=== PATIENT | male | born 1955 | race Caucasian/White ===

== ENCOUNTER 2018-07-07 17:33 | Emergency (ER) | payer OTHER ==
[2018-07-07] MEDS: NS 0.9% 1000 ML* 2,000 ML IV ONE ×4 (17:39→21:42)
--- NOTE | 2018-07-07 17:46 | ED ---
Altered Mental Status - HPI Summary HPI Summary: Patient is a 63 y/o M presenting to ED via ambulance at 1732 unresponsive. Provider in room to evaluate patient immediately. Patient was found unresponsive in his bedroom by his brother who is also the medic with the transporting agency. He states that he went to patient's house to check on his furnace as the patient had left him voicemails at 0900 stating his furnace was out of fuel. Pt speech was slightly slurred on the voicemail this am, but states he sometimes "abuses his medications" Upon arrival, patient was found to be on floor, unresponsive. Pt noted to have a black eye - last seen by brother 1 week ago. No blood noted. Brother notes that patient had electric heater turned on when he arrived. EMS reports pt told him he "thinks broke my ribs" during transport. States pt's mental states waxed/waned during transport. EMS gave 4 mg nasal narcan with no relief in Pt's FSBG > 400 by EMS. Sx. PMHx of diabetes,does not insulin, EMS reported patient had 447 BG. Brother/EMS reports that patient is on "twenty medications", has Hx of narcotics usage, denies previous overdose due to narcotics. He states patient does not engage in alc or any other substance usage, notes that patient has his medications delivered to his place of residence. No other hx available. Home medications and allergies are reviewed. Level 5 caveat, patient is minimally responsive. - History Of Current Complaint Stated Complaint: UNRESPONSIVE Time Seen by Provider: 07/07/18 17:37 Hx Obtained From: Family/Safety And Security Officer - brother, EMS Hx From Patient Unobtainable Due To: Altered Mental Status - level 5 caveat, patient is unresponsive Onset/Duration: Still Present Timing: Constant Character: Responsiveness - unresponsive Aggravating Factor(s): Other - possible overdose on narcotics Alleviating Factor(s): Nothing - Allergies/Home Medications Allergies/Adverse Reactions: Allergies Allergy/AdvReac Type Severity Reaction Status Date / Time Adhesive Tape Allergy Rash Verified 06/14/14 00:44 MS Acetaminophen Allergy Abdominal Verified 06/14/14 00:44 [From Tylenol] Pain MS Aspirin [Aspirin] Allergy Bleeding Verified 06/14/14 00:44 MS Atorvastatin Allergy Bleeding Verified 06/18/14 08:51 [From Lipitor] MS Iodine [Iodine] Allergy Rash Verified 06/14/14 00:44 MS Naproxen [From Naprosyn] Allergy Abdominal Verified 06/14/14 00:44 Pain BLEACH Allergy Rash And Uncoded 06/14/14 00:44 Itching PMH/Surg Hx/FS Hx/Imm Hx Previously Healthy: No Endocrine/Hematology History: Reports: Hx Diabetes - metformin Comment Only: Other Endocrine/Hematological Disorders - PANCYTOPENIA Cardiovascular History: Reports: Hx Angina, Hx Coronary Artery Disease, Hx Hypercholesterolemia, Hx Hypertension, Hx Myocardial Infarction - 2009 Denies: Hx Aneurysm, Hx Congenital Heart Disease, Hx Deep Vein Thrombosis, Other Cardiovascular Problems/Disorders Respiratory History: Reports: Hx Pneumonia GI History: Reports: Hx Gastroesophageal Reflux Disease, Other GI Disorders - PANCREATITIS, GERD History: Reports: Hx Benign Prostatic Hyperplasia, Other Problems/ Disorders - some pain when urinating Denies: Hx Renal Disease Musculoskeletal History: Reports: Hx Back Problems Sensory History: Reports: Hx Contacts or Glasses Opthamlomology History: Reports: Hx Contacts or Glasses Neurological History: Reports: Hx Headaches Psychiatric History: Reports: Hx Anxiety, Hx Depression - Surgical History Surgery Procedure, Year, and Place: carciac stents Infectious Disease History: Denies: Hx Clostridium Difficile, Hx Hepatitis, Hx Human Immunodeficiency Virus (HIV) - Family History Known Family History: Positive: Hypertension - Social History Occupation: Unemployed Lives: Alone Alcohol Use: None Substance Use Type: Reports: None, Other - prescription Smoking Status (MU): Former Smoker Type: Cigarettes Have You Smoked in the Last Year: No Review of Systems - ROS Summary Review of Systems Summary: level 5 caveat, unresponsive Negative: Fever - on vitals, temp is 88.2 F core howell Positive: Other - ecchymosis left eye Neurological: Other - unresponsive All Other Systems Reviewed And Are Negative: No - Comments Additional Review of Systems Comments: level 5 caveat, unresponsive Physical Exam - Summary Physical Exam Summary: Vital Signs Reviewed: Yes - profound hypothermia, hypotensive withdrawal to pain, poorly follows commands Eyes: Conjunctiva Clear, pupils 3mm sluggish b/l symmetric, pt with ecchymosis left eye inferior orbit - appears subacute - resolving - no open wounds ENT: TM x 2 clear, mmoist, uvula midline, no exudate, no erythema mmvery dry, lips pasty Neck: Positive: Supple no crepitus Respiratory: Positive: Pt with strong, spontaneous respirations, + BS throughout , ?crepitus right distal ribs Cardiovascular: RRR nl s1, s2 no m/r CBT >2 sec ext very cold abd soft + BS nt/nd no guarding, no distension no bruising Musculoskeletal Exam: Pt noted to move all extremities. Pt withdraws from pain ext x 4 no deformity, no Neurological: Positive: Pt minimially arousable, withdraws and localizes pain, moves ext x 2 1+ patellar b/l, babinski down b/l Psychological: minimally responsive Skin: Positive: no open lesions, apparent subacute ecchymosis left inferior orbit rim, cool to touch, pallor, no mottling Triage Information Reviewed: Yes Vital Signs On Initial Exam: Initial Vitals Temp Pulse Resp BP Pulse Ox 88.2 F 64 24 85/54 100 07/07/18 17:41 07/07/18 17:41 07/07/18 17:41 07/07/18 17:41 07/07/18 17:41 Vital Signs Reviewed: Yes Procedures - Procedure Summary Procedure Summary: Pt intubated for airwary protection and noted profound acidosis on ABG - no family available, implied consent Inline cervical stablization maintained - pt in c collar Pt mouth profoundly dry Pt with large tongue I experienced difficulty visulaizing cords with glidescope Dr. Gallagher came to bedside for assistance with effort visualized cords, advanced ETT - visualized through the cords + BS b.l following sats maintained at 98% bite block placed tube secured in place Pt started on versed drip - Intubation Time of Intubation: 19:02 Intubation Method: nasotracheal Tube Size (cm): 7.5 Medications: Versed Breath Sounds after Intubation: equal Diagnostics - Laboratory Result Diagrams: 07/07/18 20:50 07/07/18 20:50 Lab Statement: Any lab studies that have been ordered have been reviewed, and results considered in the medical decision making process. - CT brain ct CT Interpretation Completed By: Radiologist Summary of CT Findings: IMPRESSION: 1. Left sphenoid sinus air fluid levels and aerosolized secretions may reflect. trauma or acute sinusitis in the appropriate clinical scenario. Clinical. correlation recommended. 2. Expansile groundglass and lytic lesion in the posterior central occipital. bone measuring 4.6 x 1.6 cm is indeterminate. This could reflect either a. benign or malignant lesion. Clinical correlation recommended. Recommend. comparison to prior CT head if available. 3. No definite evidence of acute intracranial hemorrhage, infarction, or mass. This report was reviewed by ED physician. cervical spine ct CT Interpretation Completed By: Radiologist Summary of CT Findings: IMPRESSION: 1. Evaluation moderately limited by patient motion. 2. Multilevel degenerative changes including disc osteophytes. Findings. probably worst at C5-C6 where there is probably moderate canal stenosis. MRI. can be performed if clinically indicated for further evaluation. 3. No acute displaced fracture. THIS REPORT WAS REVIEWED BY ED PHYSICIAN. maxillofacial ct CT Interpretation Completed By: Radiologist Summary of CT Findings: IMPRESSION: No acute displaced fracture. THIS REPORT WAS REVIEWED BY ED PHYSICIAN. CT a/p CT Interpretation Completed By: Radiologist - Patient Name: ELIZABETH TALBOT Medical Record#: [id number] Ordering Physician: Natividad Park MD Acct.#: [id number] : 1955 Age: 63 Sex: M Location: EMERGENCY DEPARTMENT Exam Date: 07/07/181750 ADM Status: REG ER Order Information: CT CHEST/ABD/PEL W/O Accession Number : [id number] CPT: 11079 EXAM: CT Chest Without Contrast EXAM DATE/TIME: 07/07/2018 6:21 PM CLINICAL HISTORY: 63 years old, male; Injury or trauma; Injury history: Unresponsive; Initial encounter; Unconscious; Additional info: Fall, ms changes, TECHNIQUE: Axial computed tomography images of the chest without intravenous contrast. All CT scans at this facility use at least one of these dose optimization techniques: automated exposure control; mA and/or kV adjustment per patient size (includes targeted exams where dose is matched to clinical indication); or iterative reconstruction. Coronal and sagittal reformatted images were created and reviewed. COMPARISON: 06/13/2014 images only without report. FINDINGS: Lungs: Stable 4 mm left lower lobe upper nodule. Pleural space: No focal consolidation or pleural effusion. Heart: Coronary calcifications. Aorta: Calcific atherosclerosis of the thoracic aorta. Lymph nodes: Unremarkable. No enlarged lymph nodes. Bones/joints: Evaluation moderately limited by patient motion. Among other things, extensive motion precludes evaluation for rib fractures. Soft tissues: Unremarkable. Upper abdomen: For abdominal findings, refer to same day CT abdomen. IMPRESSION: 1. Evaluation moderately limited by patient motion. Among other things, extensive motion precludes evaluation for rib fractures. 2. No focal consolidation or pleural effusion. EXAM: CT Abdomen and Pelvis Without Contrast EXAM DATE/TIME: 2017 6:21 PM CLINICAL HISTORY: 63 years old, male; Injury or trauma; Injury history: Unresponsive; Initial encounter; Unconscious; Additional info: Fall, ms changes, TECHNIQUE: Axial computed tomography images of the abdomen and pelvis without contrast. This report is only to be considered final once signed by the Provider(s) as displayed in the "<Electronically Signed by >" field (s). Absence of a signature indicates the report is in a draft status and still needs to be finalized. In the event this document was created by someone other than the signing Provider, the individual initiating the document will be listed in the "Entered by:" or "Dictated by:" donald. 1 of 3 - EKG 1820 Cardiac Rate: NL - rate of 65 BPM EKG Rhythm: Sinus Rhythm Summary of EKG Findings: EKG showed sinus rhythm with rate of 65 BPM, artifact, no ST-T changes. Re-Evaluation - Re-Evaluation First Eval Comment: Pt with no response to Narcan. pt with profound hypotenstion, will give 2 liters saline and boss scan for ? trauma - Pt is not tachycardic, but noted to have beta lizy on med list - continue with broad differential -. accompany pt to CT scan Second Eval Comment: review of scans by me - no intracranial blood, PTX, intra-abominal bleeding or air - no conrast given as pt with chart allergy to contrast. Family not present or available for furthe consult - pt remained hypotensive, 2 additional liter NS irdered, evan hugger, start Levophed. Pt continues with decreased MS - pt with strong res effort, intact gag - continue to monitor - ABG, add carboxyhemoglobin as pt with reported fuel problem per brother. Bg> 444 in ED - await labs Third Eval Comment: pt's lab studies reveal a pround acidosis. sodium, chloride, renal function wnl. markedly elevated AG. non concerning carboxyhbg. apap/ salislyate/tsh/etoh normal. awaiting serum osmolariaty measture - awaiting CT reports. pt noted to have 4mm pupils and non response - unclear is residual from narcan vs progression of process - will intubate. BP 100 systolic with levophed. Pt maintained in C collar and inline stabilization. head CT no acute process report. d/w Dr. Lomax - revieweing differential - DKA, ingestion, hypothermia. will use versed - not paralytic Fourth Eval Comment: Pt intubated - see note. pt started on versed drip. CT c/a/p reviewed - pt with rectosigmoid inflammation - very broad differential given by vrad. reviewed with Dr. Cadena - overnight hospitalist - d/w Dr. Butler - still unclear diagnosis. added additional labs. okay to admit to [facility] Altered Mental Statu Course/Dx - Course Course Of Treatment: Pt presents by EMS found minimally responsive in his house. Last known contact this am - slight slurring of speech. Pt with mininmal responsiveness, borhter states spoke to [facility] to [facility]. Pt noted to be profoundly hypothermic. Pt with subacute ecchymosis left inferior orbit. no other obvious signs of trauma. will give IV narcan, boss labs, FSBG, IVF, second IV, close monitoring, thermofoley, review home meds (no benzo, + narcotic, lyrica, metformin, metoprolol) - Diagnoses Provider Diagnoses: Ketoacidosis, High serum osmolar gap, Ethylene glycol poisoning, Hypothermia, Facial trauma - Provider Notifications Discussed Care Of Patient With: Swathi Lomax Time Discussed With Above Provider: 18:30 Instructed by Provider To: Admit As Inpatient - Patient's case was discussed with Dr. Lomax, Dr. Lomax will assist with patient. - Critical Care Time Critical Care Time: 75-104 min Discharge - Sign-Out/Discharge Documenting (check all that apply): Patient Departure - Discharge Plan Condition: Critical Disposition: ADMITTED TO [facility] Referrals: Fortino Hidalgo MD [Primary Care Provider] - - Billing Disposition and Condition Condition: CRITICAL Disposition: Admitted to [facility] - Attestation Statements Document Initiated by Scribe: Yes Documenting Scribe: CLAUDE HERNANDEZ Provider For Whom Scribe is Documenting (Include Credential): NATIVIDAD PARK MD Scribe Attestation: CLAUDE Brooke , scribed for NATIVIDAD PARK MD on 07/08/18 at 1447. Scribe Documentation Reviewed: Yes Provider Attestation: The documentation as recorded by the scribe, CLAUDE HERNANDEZ accurately reflects the service I personally performed and the decisions made by me, NATIVIDAD PARK MD Status of Gloria Document: Viewed
[2018-07-07 17:56] LABS: Hematocrit 42 % (42-52); Hemoglobin 12.6 g/dl (14.0-18.0); Mean Corpuscular HGB Conc 30 g/dl (31-36); Mean Corpuscular Hemoglobin 26 pg (27-31); Mean Corpuscular Volume 87 fL (80-94); Mean Platelet Volume 7.8 fL (7.4-10.4); Platelet Count 221 10^3/ul (150-450); Red Blood Count 4.85 10^6/ul (4.00-5.40); Red Cell Distribution Width 25 % (10.5-15); White Blood Count 8.6 10^3/ul (3.5-10.8)
[2018-07-07] MEDS ORDERED: Naloxone* 0.4 MG/ML 10 ML VIAL ONE (18:07)
[2018-07-07] MEDS: Norepinephrine VIAL* 4 MG in NS 0.9% 250 ML* 246 ML IV SCH ×4 (18:08→22:35)
[2018-07-07] MEDS ORDERED: Naloxone* 0.4 MG/ML 1 ML VIAL IV PUSH ONE (18:10)
[2018-07-07 18:14] LABS: EGFR Non-African American 63.2 (>60)
[2018-07-07 18:16] LABS: ABS Basophils 0.1 10^3/ul (0-0.2); ABS Eosinophils 0 10^3/ul (0-0.6); ABS Lymphocytes 0.8 10^3/ul (1.0-4.8); ABS Monocytes 0.4 10^3/ul (0-0.8); ABS Neutrophils 7.3 10^3/ul (1.5-7.7); ABS Nucleated RBC 0 10^3/ul; Eosinophil % 0.2 %; Nucleated Red Blood Cells % 0.2
[2018-07-07 18:34] LABS: Urine Appearance Clear; Urine Blood 2+ (Negative); Urine Color Yellow; Urine Ketones 2+ (Negative); Urine Protein 2+(100 mg/dL) (Negative); Urine Red Blood Cell 1+(3-5/hpf) (Absent); Urine Specific Gravity 1.021 (1.010-1.030); Urine Urobilinogen Negative (Negative); Urine White Blood Cell Absent (Absent)
[2018-07-07] MEDS ORDERED: Midazolam* 1 MG/ML 10 ML VIAL (10 MG) ONE (19:03)
[2018-07-07] MEDS ORDERED: Midazolam BAG 1 MG/ML* 100 MG/100 ML BAG IV ONE (19:12)
[2018-07-07] MEDS ORDERED: Midazolam* 1 MG/ML 2 ML VIAL (2 MG) IV SLOW PU ONE ×2 (19:14→19:15)
[2018-07-07] MEDS ORDERED: Insulin IVPB 100 units/100 ml 100 UNITS/100 ML UNIT IVPB ONE (19:52)
[2018-07-07] MEDS ORDERED: Propofol* 100 ML IV SCH (20:00)
[2018-07-07] MEDS ORDERED: Midazolam IV for DRIP* 100 MG in NS 0.9% 100 ML* 80 ML IV SCH (20:00)
[2018-07-07] MEDS ORDERED: NS 0.9% w/ 20 Meq KCL 1000 ML* 1,000 ML IV SCH ×2 (20:00→21:23)
[2018-07-07] MEDS ORDERED: fentaNYL* 50 MCG/ML 2 ML VIAL (100 MCG VIAL) IV SLOW PU PRN (20:16)
[2018-07-07] MEDS ORDERED: Ondansetron INJ* 2 MG/ML VIAL IV PRN (20:24)
[2018-07-07] MEDS ORDERED: Piperacillin/Tazobac ADVAN(*) 3.375 GM in NS 0.9% 100 ML* 100 ML IVPB ONE (20:34)
[2018-07-07] MEDS ORDERED: Pantoprazole* 80 mg IN NS 80 MG/250 ML BAG IVPB ONE (20:36)
--- NOTE | 2018-07-07 20:44 | ED ---
Progress - Progress Note Progress Note: I was asked to place a central line in this patient who is to be admitted to the ICU. I also assisted Dr. Park and intubating the patient. Course/Dx - Course Course Of Treatment: Patient pending admission to ICU or transfer by the hospitalist team. - Diagnoses Provider Diagnoses: Ketoacidosis, High serum osmolar gap, Ethylene glycol poisoning - Provider Notifications Time Discussed With Above Provider: 18:30 Instructed by Provider To: Other - Patient's case was discussed with Dr. Lomax, Dr. Lomax will assist with patient. Discharge - Sign-Out/Discharge Documenting (check all that apply): Patient Departure - Discharge Plan Condition: Critical Disposition: TRANS HIGHER LVL OF CARE FAC - Billing Disposition and Condition Condition: CRITICAL Disposition: Trans Higher Lvl of Care Fac - Attestation Statements Document Initiated by Armenibe: Yes Documenting Scribe: Chico Palacios Provider For Whom Scribe is Documenting (Include Credential): Jay Gallagher MD Scribe Attestation: IChico, scribed for Jay Gallagher MD on 07/07/18 at 2253. Scribe Documentation Reviewed: Yes Provider Attestation: The documentation as recorded by the Chico gonzalez accurately reflects the service I personally performed and the decisions made by me, Jay Gallagher MD Status of Scribe Document: Viewed Procedures - Central Line Right Jugular Central Line Lumen: triple Central Line Procedure: betadine prep, sterile drapes applied, sterile dressing applied Central Line Position: internal jugular (R) Anesthesia: Lidocaine - 1% cc's of anesthesia: 2 Complications: none Central Line Post Position: sutured, good blood return, position confirmed w/ CXR - CXR ordered, admiting team will follow
[2018-07-07] MEDS ORDERED: Pantoprazole IV* 40 MG IV SCH (21:00)
[2018-07-07] MEDS ORDERED: Zosyn per Pharmacy* NOTE FOLLOW UP SCH (21:00)
[2018-07-07] MEDS ORDERED: Chlorhexidine MOUTHWASH 0.12%* 15 ML UDC TOPICAL SCH (21:00)
[2018-07-07] MEDS ORDERED: SODIUM BICARBONATE IV ONE ×2 (21:20→22:18)
[2018-07-07] MEDS ORDERED: D5W IV ONE ×2 (21:20→22:18)
[2018-07-07 21:27] LABS: Hematocrit 42 % (42-52); Hemoglobin 12.6 g/dl (14.0-18.0)
[2018-07-07 21:32] LABS: INR 0.95 (0.77-1.02)
[2018-07-07 21:43] LABS: EGFR Non-African American 77.5 (>60)
[2018-07-07] MEDS ORDERED: Heparin VIAL(*) 5000 UNITS/ML VIAL (FIVE THOUSAND) SUBCUT SCH (22:00)
--- NOTE | 2018-07-07 22:09 | PN ---
Progress Note - Progress Note Date of Service: 07/07/18 Note: 63 yr old with hx of DM found unresponsive with significant anion gap acidosis - promptly intubated. No history obtained other than brother found him unresponsive. Hypothermic and hypotensive. Glucose elevated with component of DKA. Due to the profound AG metaboic acidosis, that persisted despite IVFs and intubation, the concern for ethylene glycol ingestion remains high on the DDx ( elevated osmolal gap) We are unable to acutely dialyze here if he did ingest ethylene glycol. Patient to be transferred to [facility] ICU accepted by Dr. Correa. Patient given a dose of Zosyn prior to transfer. On IVFs NS with 20 KCl, Bicarb drip, Insulin drip, Propofol drip.
[2018-07-07 23:42] VITALS: BP 92/59
[2018-07-08] MEDS ORDERED: ZOSYN 3.375 GM Q8H per EXTENDED INFUSION IVPB SCH ×2 (01:00)
--- NOTE | 2018-07-08 01:05 | HP ---
CC: Fortino Hidalgo MD HISTORY AND PHYSICAL: DATE OF ADMISSION: 07/07/18 TIME OF EVALUATION: 1999 PRIMARY CARE PHYSICIAN: Fortino Hidalgo MD CHIEF COMPLAINT: Altered mental status. HISTORY OF PRESENT ILLNESS: This is a 63-year-old male with a past medical history of diabetes, on oral agents; coronary artery disease; hypertension; who presented to the emergency room unresponsive. The history is obtained from the [facility] and from the ER staff. I have attempted to get in touch with the brother who found him down, but have not been able to reach him and left a message. The ambulance arrived around 173, found the patient unresponsive. The patient was found unresponsive with a black eye in his own home by his brother. The brother went to the patient's house to check on his furnace as the patient left a voice mail at 9 in the morning saying he was out of fuel. The patient was found on the floor unresponsive. The patient had an electric heater turned down when they arrived. They gave him 4 mg of nasal Narcan with no response. His blood sugar from EMS was 447. The brother states he takes 20 medications, history of narcotic use, no history of overdose in the past. He is not always compliant with his medications. On arrival to the emergency room, the patient's GCS score was less than 8 and he was promptly intubated. His blood workup showed a severe anion gap metabolic acidosis. He has a glucose of 531 with a normal lactate. He was started on Levophed. He was given 2 L of fluid, Versed drip, and referred to the hospitalist service for further evaluation. PAST MEDICAL HISTORY: 1. History of chronic pain. 2. History of chronic pancreatitis with history of pseudocyst. 3. Diabetes, on oral agents. 4. Hyperlipidemia. 5. Coronary artery disease. 6. Hypertension. 7. BPH. 8. History of anxiety. MEDICATIONS: Unknown. ALLERGIES: ADHESIVE TAPE, TYLENOL, ASPIRIN, ATORVASTATIN, IODINE, NAPROXEN, and BLEACH. FAMILY HISTORY: Unable to obtain. SOCIAL HISTORY: Appears that the patient lives alone. It is unclear of further details of his social history. His brother in the past was his proxy, Gt Frost, cellphone [phone]. REVIEW OF SYSTEMS: Unable to obtain due to the patient's altered mental status. PHYSICAL EXAMINATION GENERAL: The patient is intubated and sedated. VITAL SIGNS: Temp 88.5, pulse rate 70, respiratory rate is 12, FiO2 is 100% on mechanical ventilation, blood pressure is 113/71. HEENT: Head is normocephalic. He does have ecchymosis inferior of his right orbit. Pupils are minimally reactive and dilated. No corneal reflex. Oropharynx: The patient has ET tube in place. RESPIRATORY: Diminished breath sounds. No wheezes, rhonchi, or rales. CARDIAC: Regular rate and rhythm. Soft systolic murmur heard throughout. ABDOMEN: Positive bowel sounds. Soft, nontender, nondistended. EXTREMITIES: No clubbing, cyanosis, or edema. +1 DPs. NEUROLOGIC: Per staff: The patient prior to intubation was moving his upper extremities and biting on ET tube. Now, he is sedated, not moving any extremities. LABORATORY DATA: White count 8.6, hemoglobin 12.6, hematocrit 42, platelets 221. ABG; pH is less than 7, pCO2 is less than 20, pO2 is 182. Sodium 134, potassium 4.5, chloride 100, bicarb is less than 7, anion gap not reportable, BUN 15, creatinine 1.17, glucose 531, serum osmolality is 323, mag is 2, total bili is 0.3, AST is 19, ALT is 24, alk phos is 130. Troponin is 0. Total protein is 5.9. TSH is 0.67. Urine shows 2+ protein, 2+ ketones, 2+ blood. Toxicology screen is negative. Carbon monoxide screen is negative. RADIOGRAPHIC DATA: Left sphenoid sinus air-fluid levels and aerosolized secretions may reflect trauma or acute sinusitis in the appropriate clinical scenario. Expansile ground glass and lytic lesion in the posterior central occipital bone measuring 4.6 x 1.6 cm is indeterminate. This could reflect either a benign or malignant lesion. No definitive evidence of acute intracranial hemorrhage, infarct, or mass. Cervical spine CT; evaluation moderately limited, multilevel degenerative changes including osteophytes findings probable worse at C5-C6 where there is probable moderate canal stenosis. Chest, abdomen, and pelvis CT; evaluation is moderately limited, rectosigmoid and small bowel wall thickening is nonspecific and could reflect sequelae of trauma, inflammation, underdistention or less likely infection, ischemia, neoplasm, or other etiology. Maxillofacial CT, no acute displaced fracture. ASSESSMENT: This is a 63-year-old male with past medical history of chronic pain, coronary artery disease, hypertension, who presents to the emergency room with altered mental status, was found to have significant anion gap metabolic acidosis. 1. Altered mental status: Assessment: The patient with a GCS score of less than 8, likely due to his profound metabolic acidosis. It is not entirely clear that this is all related to his diabetic ketoacidosis, does have diabetic ketoacidosis which can lead to coma and somnolence that he is presenting; however, the degree of it with his hypothermia, there is concern for other etiologies including ingestional ethylene glycol or methanol. His lactate is normal which would rule out other etiologies such as a seizure. He does have an elevated osmolar gap. Plan: I spoke with Luke at length. I am checking his cyanide level. We will also check a beta hydroxybutyrate, going to check his coags and ammonia level. I will treat him for his diabetic ketoacidosis with IV fluids, potassium , insulin drip, and monitor his glucose every hour. We will repeat a BMP every 4 hours and change his sedation from Versed to propofol. Will also give him a dose of Zosyn in setting of his hypothermia and altered mental status. 2. Coffee ground output from OG tube: About 300 cc. We will start him on a PPI drip. Monitor serial H and Hs and put him on SCDs and hold on chemical anticoagulation prophylaxis. 3. Anion gap metabolic acidosis. As above, managing him for his diabetic ketoacidosis, we will also try other etiologies that may be contributing to his anion gap acidosis at the same time. We will repeat his labs and follow correction and repeat his ABG as well. 4. Chronic medical problems. We will need to get a med rec to determine what he has been compliant with. We will also need to touch base with his brother to get a better history to determine if there are any suspicious activities that occurred at his house. I am waiting to hear a call back from his brother. 5. FEN. N.p.o. with IV fluids. 6. DVT prophylaxis. The patient scores high risk. He is on SCDs in the setting of an upper gastrointestinal bleed. 7. Code status. Full code. ADDENDUM: TRANSFER: Due to the continued concern for ethylene glycol ingestion due to his profound anion gap metabolic acidosis with a normal lactate the decision was made to transfer him to [facility] ICU for possible dialysis. Patient has had central line placed. Patient being transferred with NS with 2 KCl, bicarb drip, insulin drip, propofol drip and protonix drip. Fentanyl prn pain. PATIENT TIME: Greater than 60 minutes spent doing the history and physical. I spoke with Dr. Butler several times regarding the management and hospital course for this patient. [id number] #: [id number] MTDD
== END 2018-07-07 23:42 | disposition short-term general hospital (02) ==
LOC: ED 17:33 → ICU 20:24 → UNDOADMIN 20:24
DX: T65.891A Toxic effect of other specified substances, accidental (unintentional), initial encounter (principal); E87.2 Acidosis; Y92.9 Unspecified place or not applicable; R41.82 Altered mental status, unspecified; Z87.891 Personal history of nicotine dependence; E11.9 Type 2 diabetes mellitus without complications
CPT/HCPCS: 36415; 70450; 70486; 71045; 71250; 72125; 74176; 80048; 80053; 80307; 80320; 80329; 81003; 81015; 82010; 82140; 82375; 82550; 82600; 82803; 82947; 83605; 83735; 83930; 84443; 84484; 85014; 85018; 85025; 85060; 85610; 85730; 86850; 86900; 86901; 87040; 93005; 96360; 99285; G0480; J1815; J2250; J2310; J2543; J2704; J7060

== ENCOUNTER 2018-12-03 10:21 | Inpatient (IN) | payer OTHER ==
[2018-12-03] MEDS ORDERED: Insulin REGULAR(*) 1 UNITS UNIT IV ONE (10:30)
--- NOTE | 2018-12-03 10:31 | ED ---
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 Per brother, who is also the EMS that brought pt into [facility]: Patient called his mother this morning, and she called 911; patient was experiencing slurred speech, tachypnea, tachycardia and his POC blood sugar was too high for a reading en route; he is a diabetic who has not been taking his insulin for the past year; patient will hit himself in the head when frustrated. PMHx: chronic pancreatitis, HDL, back pain, chronic pain. No PMHx of stroke or pancreatic surgery. He was found unresponsive in Jun 2018 and transferred to [facility] at that time from [facility], he spent a month in the hospital at that time. The other brother saw patient last night around 1800. Denies vomiting. Patient is in chronic pain and will state wanting to ; but brother denies patient having SI or MH history. At bedside, patient is cursing, non-cooperative and non-oriented at times. He states, "I'm just a baby," "[place]'m at the river" and "Lord, why do you make me suffer so long. It's time." He states being thirsty. Patient ambulates via walker. Patient lives alone in a trailer. Cooks for himself. He is medication non-compliant. Vitals at bedside: 114 bpm, HR: 104/74, 02 sat: 98%. Home Medications Medication Instructions Recorded Confirmed Type Atorvastatin* [Lipitor*] 80 mg PO BEDTIME 02/09/14 06/14/14 History Docusate CAP* [Colace Cap*] 100 mg PO BID 02/09/14 06/14/14 History Escitalopram Oxalate [Lexapro] 20 mg PO DAILY 02/09/14 06/14/14 History LORazepam TAB(*) [Ativan 0.5 MG 1 tab PO DAILY PRN 02/09/14 06/14/14 History TAB (*)] Linagliptin/Metformin HCl 1 tab PO BID 02/09/14 06/14/14 History [Jentadueto 2.5-1000 mg] Lipase/Protease/Amylase [Creon 0.5 cap PO AC 02/09/14 06/14/14 History 6000 Unit] Metoprolol Tartrate TAB* 100 mg PO BID 02/09/14 06/14/14 History [Lopressor TAB*] Multivitamin [Multivitamins] 1 tab PO DAILY 02/09/14 06/14/14 History Nitroglycerin TAB 0.4 MG* 0.4 mg SL Q5M PRN 02/09/14 06/14/14 History Omeprazole CAP (NF) [Prilosec CAP* 1 tab PO DAILY 02/09/14 06/14/14 History 20 MG] Pregabalin CAP(*) [Lyrica CAP(*)] 75 mg PO TID 02/09/14 06/14/14 History Tamsulosin CAP* [Flomax CAP*] 0.4 mg PO DAILY 02/09/14 06/14/14 History amLODIPine TAB* [Norvasc 5 mg TAB*] 1 tab PO DAILY 02/09/14 06/14/14 History glipiZIDE TAB* [Glucotrol TAB*] 0.5 tab PO BID 02/09/14 06/14/14 History oxyCODONE SR TAB(*) [Oxycontin(*)] 15 mg PO BID 02/09/14 06/14/14 History oxyCODONE TAB* [Roxycodone TAB*] 10 mg PO Q8H PRN 02/09/14 06/14/14 History - History Of Current Complaint Hx Obtained From: Family/Training And Development Project Leader - brother (Herve) and [id number], EMS - brother Herve is also a medic on the ambulance Hx From Patient Unobtainable Due To: Altered Mental Status Onset/Duration: Gradual Onset, Still Present Timing: Constant Severity Initially: Severe Severity Currently: Severe Character: Confused Aggravating: Non-compliant - insulin Alleviating: Nothing Associated Signs & Symptoms: Decreased Level of Conciousness Related History: Hx of DKA - Allergies/Home Medications Allergies/Adverse Reactions: Allergies Allergy/AdvReac Type Severity Reaction Status Date / Time acetaminophen Allergy Abdominal Verified 12/03/18 10:43 Pain Adhesive Tape Allergy Rash Verified 06/14/14 00:44 aspirin Allergy Bleeding Verified 12/03/18 10:43 atorvastatin Allergy Bleeding Verified 12/03/18 10:43 Bleach (Sodium Hypochlorite) Allergy Rash And Verified 12/03/18 10:43 Itching iodine Allergy Rash Verified 12/03/18 10:43 naproxen Allergy Abdominal Verified 12/03/18 10:43 Pain Home Medications: Home Medications Aspirin EC TAB* [Ecotrin EC Low Dose 81 MG*] 81 mg PO DAILY 12/03/18 [History Confirmed 12/03/18] PMH/Surg Hx/FS Hx/Imm Hx Previously Healthy: No Endocrine/Hematology History: Reports: Hx Diabetes - noncompliant with insulin, episodes of DKA, Other Endocrine/Hematological Disorders - PANCYTOPENIA Cardiovascular History: Reports: Hx Angina, Hx Coronary Artery Disease, Hx Hypercholesterolemia, Hx Hypertension, Hx Myocardial Infarction - 2009 Denies: Hx Aneurysm, Hx Congenital Heart Disease, Hx Deep Vein Thrombosis, Other Cardiovascular Problems/Disorders Respiratory History: Reports: Hx Pneumonia GI History: Reports: Hx Gastroesophageal Reflux Disease, Other GI Disorders - PANCREATITIS, GERD History: Reports: Hx Benign Prostatic Hyperplasia, Other Problems/ Disorders - some pain when urinating Denies: Hx Renal Disease Musculoskeletal History: Reports: Hx Back Problems - chronic pain Sensory History: Reports: Hx Contacts or Glasses Opthamlomology History: Reports: Hx Contacts or Glasses Neurological History: Reports: Hx Headaches Psychiatric History: Reports: Hx Anxiety, Hx Depression - Surgical History Surgery Procedure, Year, and Place: cardiac stents Infectious Disease History: No Infectious Disease History: Denies: Hx Clostridium Difficile, Hx Hepatitis, Hx Human Immunodeficiency Virus (HIV) - Family History Known Family History: Positive: Hypertension Negative: Blood Disorder Family History: mother: aortic valve replacement - Social History Occupation: Disabled Lives: Alone Alcohol Use: None - No longer - not in 20 years, per brother Hx Substance Use: No Substance Use Type: Reports: None, Other - prescription Hx Tobacco Use: Yes Smoking Status (MU): Former Smoker Type: Cigarettes Have You Smoked in the Last Year: No Review of Systems Positive: Other - pos: tachycardia Respiratory: Other - pos: tachypnea Positive: Other - pos: elevated blood sugar, thirsty. Negative: Vomiting Positive: no symptoms reported Positive: Arthralgia - chronic back pain Skin: Negative Neurological: Other - pos: AMS Positive: Slurred Speech Psychological: Other - pos: AMS, neg: SI. All Other Systems Reviewed And Are Negative: Yes Physical Exam - Summary Physical Exam Summary: Appearance: Ill-appearing, moderate pain distress, well-nourished. He is wearing an adult diaper. Patient is speaking jibberish and hitting himself in the head. Skin: Warm, color reflects adequate perfusion, dry, abrasion above L eyebrow and nose, 3cm superficial and small hematoma above L eyebrow, superficial abrasions on bilat hands. Head: Normal Head/Face inspection, atraumatic Eyes: Conjunctiva clear ENT: Normal inspection. Fruity breath smells. Neck: Supple, no nodes, no JVD Respiratory: Lungs clear, normal breath sounds, no respiratory distress Cardio: tachycardic, No murmur, pulses normal, brisk capillary refill Abdomen: Soft, nontender Bowel sounds: Present Musculoskeletal: Strength Intact/ROM intact, no calf tenderness, no edema. Psychological: Normal Neuro: Alert, muscle wasting bilateral extremities, no focal deficit. GCS: 14. Triage Information Reviewed: Yes Vital Signs Reviewed: Yes - Jason Coma Scale Best Eye Response: 4 - Spontaneous Best Motor Response: 6 - Obeys Commands Best Verbal Response: 4 - Confused Coma Scale Total: 14 Diagnostics - Vital Signs noted in ED - Laboratory Result Diagrams: 12/11/18 07:45 12/11/18 07:45 Lab Statement: Any lab studies that have been ordered have been reviewed, and results considered in the medical decision making process. - Radiology CXR Radiology Interpretation Completed By: Radiologist Summary of Radiographic Findings: IMPRESSION: NO EVIDENCE FOR ACTIVE CARDIOPULMONARY DISEASE. ED provider has reviewed this report. - CT BRAIN CT CT Interpretation Completed By: Radiologist Summary of CT Findings: IMPRESSION: NO ACUTE INTRACRANIAL PATHOLOGY. MODERATE SINUS MUCOSAL INFLAMMATORY DISEASE, WITH AIR-FLUID LEVELS IN THE LEFT MAXILLARY AND FRONTAL SINUSES. IN THE CORRECT CLINICAL SETTING, THIS MAY REPRESENT ACUTE SINUSITIS. ED provider has reviewed this report. ABD/PEL CT CT Interpretation Completed By: Radiologist Summary of CT Findings: IMPRESSION: Extensive pancreatic calcifications. No significant change is noted since July 07, 2018. No bowel obstruction is noted. Urinary bladder is distended with no evidence of obstructive uropathy. ED provider has reviewed this report. - EKG 1025 Cardiac Rate: Tachycardia - 114 bpm EKG Rhythm: Sinus Tachycardia ST Segment: Non-Specific Ectopy: None EKG Comparison: No Significant Change - from EKG on 07/07/18. Summary of EKG Findings: An EKG at [address], nml QTc, and nml axis. No acute changes. Low voltage EKG. Poor R-wave progression in V1-V2. Similar to prior EKG on 07/07/18. EKG read and interpreted by ED physician. Re-Evaluation - Re-Evaluation 1 Re-Evaluation Time: 12:08 Change: Improved Comment: Pt is calmer. He can answer yes/no questions appropriately. Vitals at bedside: HR: 108/74, O2 sat 96%, 117 bpm. Diabetic Course/Dx - Course Course Of Treatment: Patient is a 63 y/o M brought in by EMS who is also patient 's brother from home for slurred speech, tachycardia, tachypnea, and elevated blood sugar first noticed this morning. PMHx: diabetic who has not been taking his insulin for the past year; chronic pain; pancreatitis. At bedside, patient is cursing, non-cooperative and non-oriented at times saying "I'm just a baby," "[place]'m at the river" and "Lord, why do you make me suffer so long. It's time.". An EKG at [address], nml QTc, and nml axis. No acute changes. Low voltage EKG. Poor R-wave progression in V1-V2. Similar to prior EKG on 07/07. Brain CT shows "NO ACUTE INTRACRANIAL PATHOLOGY. MODERATE SINUS MUCOSAL INFLAMMATORY DISEASE, WITH AIR-FLUID LEVELS IN THE LEFT MAXILLARY AND FRONTAL SINUSES. IN THE CORRECT CLINICAL SETTING, THIS MAY REPRESENT ACUTE SINUSITIS." CXR shows "NO EVIDENCE FOR ACTIVE CARDIOPULMONARY DISEASE." ABD/CT shows "Extensive pancreatic calcifications. No significant change is noted since July 07, 2018. No bowel obstruction is noted. Urinary bladder is distended with no evidence of obstructive uropathy.". Critical lab values: CO2: 14, glucose: 520. ETOH results are 221. His venous blood gas results do not support DKA. UA reviewed. Patient given Ativan, Insulin IV and IV fluids in ED. Pt medications reviewed this visit. Nurses note reviewed. Allergies noted. Consulted with Dr. Gupta, hospitalist, who will admit patient. Critical Care Time: 20 minutes. - Diagnoses Provider Diagnoses: Uncontrolled diabetes mellitus, Altered mental status, Alcohol intoxication, Hematoma of frontal scalp, Hypokalemia, Lactic acidosis, DKA (diabetic ketoacidoses) - Physician Notifications Discussed Care Of Patient With: Radha Gupta - hospitalist Time Discussed With Above Provider: 12:07 Instructed by Provider To: Other - Discussing case, call again when Brain CT is back. Consulted again at 1245: Will admit patient. - Critical Care Time Critical Care Time: 30-74 min - 30 mins CCT Discharge - Sign-Out/Discharge Documenting (check all that apply): Patient Departure - ADMIT / ICU All imaging exams completed and their final reports reviewed: Yes Patient Received Moderate/Deep Sedation with Procedure: No - Discharge Plan Condition: Improved Disposition: ADMITTED TO [facility] - Billing Disposition and Condition Condition: IMPROVED Disposition: Admitted to [facility] - Attestation Statements Document Initiated by Scribe: Yes Documenting Scribe: Marques Nunez Provider For Whom Gloria is Documenting (Include Credential): Dr. Lorraine Graves MD Scribe Attestation: Marques Brooke, scribed for Dr. Lorraine Graves MD on 12/14/18 at 0209. Scribe Documentation Reviewed: Yes Provider Attestation: The documentation as recorded by the Marques gonzalez accurately reflects the service I personally performed and the decisions made by me, Dr. Lorraine Graves MD Status of Scribe Document: Viewed Consult Consult: 1337: Consult with Dr. Yates, [facility] Will accept to ICU.
[2018-12-03] MEDS ORDERED: LORazepam INJ* 2 MG/ML 1 ML VIAL IV PUSH ONE ×2 (10:39→11:42)
[2018-12-03] MEDS ORDERED: Lorazepam PYXIS KEY PRN ×2 (10:39→11:42)
[2018-12-03] MEDS: NS 0.9% IV ONE ×2 (11:04→11:30)
[2018-12-03] MEDS ORDERED: Lorazepam PYXIS KEY ONE (11:21)
[2018-12-03] MEDS: Insulin IVPB 100 units/100 ml 100 UNITS/100 ML UNIT IVPB ONE ×2 (11:31→15:23)
[2018-12-03 11:41] LABS: ABS Basophils 0.1 10^3/ul (0-0.2); ABS Lymphocytes 0.9 10^3/ul (1.0-4.8); ABS Monocytes 0.2 10^3/ul (0-0.8); ABS Neutrophils 3.9 10^3/ul (1.5-7.7); Eosinophil % 0.8 %; Hematocrit 40 % (42-52); Hemoglobin 12.5 g/dL (14.0-18.0); Lymphocyte % 18.3 %; Mean Corpuscular HGB Conc 32 g/dL (31-36); Mean Corpuscular Hemoglobin 23 pg (27-31); Mean Platelet Volume 8.8 fL (7.4-10.4); Platelet Count 176 10^3/uL (150-450); Red Blood Count 5.42 10^6 /uL (4.18-5.48); Red Cell Distribution Width 18 % (10.5-15); White Blood Count 5.1 10^3/uL (3.5-10.8)
[2018-12-03 11:52] LABS: Activated Partial Thrombo Time 28.7 seconds (26.0-36.3); INR 1.03 (0.82-1.09)
[2018-12-03 11:54] LABS: Albumin 4.1 g/dL (3.2-5.2); Albumin/Globulin Ratio 1.4 (1-3); BUN/Creatinine Ratio 10.9 (8-20); C Reactive Protein 3.2 mg/L (<8.01); Calcium 8.8 mg/dL (8.6-10.3); EGFR African American 100.9 (>60); EGFR Non-African American 83.4 (>60); Globulin 2.9 g/dL (2-4); Potassium 3.3 mmol/L (3.5-5.0); Total Bilirubin 0.4 mg/dL (0.2-1.0); Troponin I 0.01 ng/mL (<0.04)
[2018-12-03 12:03] LABS: Mean Corpuscular Volume 73 fL (80-94)
[2018-12-03 12:14] LABS: Urine Appearance Clear; Urine Bacteria Absent (Absent); Urine Bilirubin Negative (Negative); Urine Blood 1+ (Negative); Urine Color Straw; Urine Glucose 3+(>=500 mg/dL) (Negative); Urine Ketones Trace (Negative); Urine Nitrite Negative (Negative); Urine Protein Negative (Negative); Urine Red Blood Cell 1+(3-5/hpf) (Absent); Urine Specific Gravity 1.016 (1.010-1.030); Urine Urobilinogen Negative (Negative); Urine White Blood Cell Absent (Absent)
[2018-12-03 13:06] LABS: Urine Benzodiazepine Screen None Detected (None Detect); Urine Opiates Screen None Detected (None Detect)
[2018-12-03 13:47] LABS: Erythrocyte Sed Rate 2 mm/Hr (0-19)
[2018-12-03] MEDS ORDERED: oxyCODONE/Acetamin 5/325 MG* TAB PO PRN (14:06)
[2018-12-03] MEDS ORDERED: NS 0.9% 1000 ML** 1,000 ML IV SCH ×4 (14:30→23:00)
[2018-12-03] MEDS ORDERED: Insulin IVPB 100 units/100 ml 100 UNITS/100 ML UNIT IVPB SCH ×2 (15:00→16:00)
--- NOTE | 2018-12-03 15:24 | HP ---
H&P (Free Text) History and Physical: History and Physical -- Critical Care Limitations in history/physical: delirium, history from ER physician and chart HPI: 63y M w/pmhx of DM (on insulin), Chronic Pancreatitis, Chronic back pain, Anxiety disorder, HTN, HLD, CAD, BPH; prior admissions noted for DKA as well as possible ingestion of non-ethanol alcohol requiring transfer to higher level of care for metabolic acidosis possible hemodialysis need. Patient comes to ER now brought in by EMS (also brother). History told as patient was noted to have change in speech and confusion, high blood glucose at home when he called family. 911 was called, EMS responded and found him confused, tachycardic, noted high blood glucose enroute. In ER, tachycardic, afebrile, tachypneic, not hypoxic, confused and combative/agitated, so was given Ativan in ER for agitation. He is currently awake, disoriented, but calm now, follows commands but slow, not distress from resp status. He states he does not drink. He states he has not been taking any medication for a year, insulin or any other medications. He states he has been urinating a lot past few days, no dysuria/ hematuria. Thirsty+, increased PO intake water+. Nausea+, no vomiting. Abdominal pain+, back pain+ which are both chronic, not taking any pain meds. Chills+ x2 days, no fevers. Cough+, no sputum. No sob/cp/palpitations/dizziness/ syncope. No recent sick contacts. Denies any drugs/alcohol/smoking. ED/floor Course: given Ativan for agitation. Started on sepsis pathway with 2 L NS IVF infusion. ROS: ROS unable to obtained secondary to change in mental status/delirium PMHx: DM (on insulin), Chronic Pancreatitis, Chronic back pain, Anxiety disorder , HTN, HLD, CAD, BPH PSHx: None Family History: unable to obtain Social History: Alcohol-denies but was past user, Smoking-denies, Drug use- denies; [place] Allergies: Allergies Allergy/AdvReac Type Severity Reaction Status Date / Time acetaminophen Allergy Abdominal Verified 12/03/18 10:43 Pain Adhesive Tape Allergy Rash Verified 06/14/14 00:44 aspirin Allergy Bleeding Verified 12/03/18 10:43 atorvastatin Allergy Bleeding Verified 12/03/18 10:43 Bleach (Sodium Hypochlorite) Allergy Rash And Verified 12/03/18 10:43 Itching iodine Allergy Rash Verified 12/03/18 10:43 naproxen Allergy Abdominal Verified 12/03/18 10:43 Pain Home Medications: Non-compliant with meds Tele: Sinus tachycardia Vitals: Vital Signs Temp 99 F 12/03/18 14:54 Pulse 81 12/03/18 14:54 Resp 16 12/03/18 14:54 BP 118/82 12/03/18 14:54 Pulse Ox 98 12/03/18 14:54 Intake & Output 12/02/18 12/03/18 12/03/18 18:59 06:59 18:59 Intake Total 630 Balance 630 Weight 54.431 kg Intake: IV Fluids 630 O2/Vent: RA Infusions: NS 2 L infusing Current Medications: Aspirin (Aspirin Ec Tab*) 81 mg PO DAILY ADY Enoxaparin Sodium (Lovenox(*)) 40 mg SUBCUT Q24H ADY Famotidine (Pepcid Tab*) 20 mg PO BID ADY Insulin Human Regular (Insulin Regular Iv Drip 1 Unit/Ml) 100 units in 100 mls @ 2.722 mls/hr IVPB Q24H ADY; Protocol Potassium Chloride (Potassium Chloride 20 Meq/100 Ml Ivpremix*) 20 meq in 100 mls @ 50 mls/hr IV Q2H ADY Stop: 12/03/18 20:59 Thiamine HCl 100 mg/ Folic Acid 1 mg/ Multivitamins 10 ml / Sodium Chloride 1, 011.2 mls @ 125 mls/hr IV ONCE ONE Stop: 12/03/18 23:07 Sodium Chloride (Ns 0.9% 1000 Ml) 1,000 mls @ 125 mls/hr IV PER RATE ADY Miscellaneous (Ativan Pyxis Sharma) 1 ea N/A .ATIVAN IV SHARMA PRN PRN Reason: PYXIS SHARMA Oxycodone/Acetaminophen (Percocet 5/325 Tab*) 1 tab PO Q6H PRN PRN Reason: PAIN - MODERATE TO SEVERE Pancrelipase (Creon (Nf)) 12,000 units PO TID WITH MEALS [facility] Pregabalin (Lyrica Cap(*)) 75 mg PO TID ADY Thiamine HCl (Vitamin B-1 Tab*) 100 mg PO DAILY ADY Physical Exam: Constitutional: awake, alert, confused but calm, no distress, no diaphoresis Head: normocephalic, atraumatic Eyes: no pallor, no icterus ENT: DRY mucous membranes Neck: soft, supple, no jvd, no stridor CVS: tachycardic, regular, no murmur Resp: bilateral air entry, no rhales, no wheeze, no rhonchi, no acc muscle use Abdomen/GI: soft, nontender, nondistended, BS+ Ext/Msk: warm, pulses+, no edema Skin: intact, warm Neuro: awake, alert, orientedx2 (person and place), moving all extremities Labs: Laboratory Results - last 24 hr 12/03/18 12/03/18 12/03/18 10:40 11:18 11:18 WBC RBC Hgb Hct MCV MCH MCHC RDW Plt Count MPV Neut % (Auto) Lymph % (Auto) Sac % (Auto) Eos % (Auto) Baso % (Auto) Absolute Neuts (auto) Absolute Lymphs (auto) Absolute Monos (auto) Absolute Eos (auto) Absolute Basos (auto) Absolute Nucleated RBC Nucleated RBC % ESR INR (Anticoag Therapy) 1.03 APTT 28.7 VBG pH VBG pCO2 VBG pO2 VBG HCO3 VBG O2 Saturation VBG Base Excess Sodium 135 Potassium 3.3 L Chloride 101 Carbon Dioxide 14 L* Anion Gap 20 H BUN 10 Creatinine 0.92 Est GFR ( Amer) 100.9 Est GFR (Non-Af Amer) 83.4 BUN/Creatinine Ratio 10.9 Glucose 520 H* POC Glucose (mg/dL) > 444 H* Glucose Meter Confirm Hemoglobin A1c Serum Osmolality Lactic Acid Calcium 8.8 Magnesium Total Bilirubin 0.40 AST 76 H ALT 32 Alkaline Phosphatase 112 H Ammonia Total Creatine Kinase 94 Troponin I 0.01 C-Reactive Protein 3.20 B-Natriuretic Peptide Total Protein 7.0 Albumin 4.1 Globulin 2.9 Albumin/Globulin Ratio 1.4 Amylase Lipase Urine Color Urine Appearance Urine pH Ur Specific [place] Urine Protein Urine Ketones Urine Blood Urine Nitrate Urine Bilirubin Urine Urobilinogen Ur Leukocyte Esterase Urine WBC (Auto) Urine RBC (Auto) Urine Bacteria Urine Osmolality Urine Glucose Urine Opiates Screen Ur Barbiturates Screen Ur Phencyclidine Scrn Ur Amphetamines Screen U Benzodiazepines Scrn Urine Cocaine Screen U Cannabinoids Screen Serum Alcohol 12/03/18 12/03/18 12/03/18 11:18 11:18 11:19 WBC 5.1 RBC 5.42 Hgb 12.5 L Hct 40 L MCV 73 L MCH 23 L MCHC 32 RDW 18 H Plt Count 176 MPV 8.8 Neut % (Auto) 75.9 Lymph % (Auto) 18.3 Sac % (Auto) 3.8 Eos % (Auto) 0.8 Baso % (Auto) 1.2 Absolute Neuts (auto) 3.9 Absolute Lymphs (auto) 0.9 L Absolute Monos (auto) 0.2 Absolute Eos (auto) 0.0 Absolute Basos (auto) 0.1 Absolute Nucleated RBC 0.0 Nucleated RBC % 0.0 ESR 2 INR (Anticoag Therapy) APTT VBG pH VBG pCO2 VBG pO2 VBG HCO3 VBG O2 Saturation VBG Base Excess Sodium Potassium Chloride Carbon Dioxide Anion Gap BUN Creatinine Est GFR ( Amer) Est GFR (Non-Af Amer) BUN/Creatinine Ratio Glucose POC Glucose (mg/dL) Glucose Meter Confirm Hemoglobin A1c Serum Osmolality 361 H* Lactic Acid Calcium Magnesium 2.0 Total Bilirubin AST ALT Alkaline Phosphatase Ammonia Total Creatine Kinase Troponin I C-Reactive Protein B-Natriuretic Peptide Total Protein Albumin Globulin Albumin/Globulin Ratio Amylase 19 L Lipase 36 Urine Color Urine Appearance Urine pH Ur Specific [place] Urine Protein Urine Ketones Urine Blood Urine Nitrate Urine Bilirubin Urine Urobilinogen Ur Leukocyte Esterase Urine WBC (Auto) Urine RBC (Auto) Urine Bacteria Urine Osmolality Urine Glucose Urine Opiates Screen Ur Barbiturates Screen Ur Phencyclidine Scrn Ur Amphetamines Screen U Benzodiazepines Scrn Urine Cocaine Screen U Cannabinoids Screen Serum Alcohol 221 H 12/03/18 12/03/18 12/03/18 11:19 11:19 11:19 WBC RBC Hgb Hct MCV MCH MCHC RDW Plt Count MPV Neut % (Auto) Lymph % (Auto) Sac % (Auto) Eos % (Auto) Baso % (Auto) Absolute Neuts (auto) Absolute Lymphs (auto) Absolute Monos (auto) Absolute Eos (auto) Absolute Basos (auto) Absolute Nucleated RBC Nucleated RBC % ESR INR (Anticoag Therapy) APTT VBG pH 7.35 VBG pCO2 28 L VBG pO2 40.0 VBG HCO3 17.3 L VBG O2 Saturation 64.8 L VBG Base Excess -8.6 L Sodium Potassium Chloride Carbon Dioxide Anion Gap BUN Creatinine Est GFR ( Amer) Est GFR (Non-Af Amer) BUN/Creatinine Ratio Glucose POC Glucose (mg/dL) Glucose Meter Confirm Hemoglobin A1c Serum Osmolality Lactic Acid 5.1 H* Calcium Magnesium Total Bilirubin AST ALT Alkaline Phosphatase Ammonia Total Creatine Kinase Troponin I C-Reactive Protein B-Natriuretic Peptide 28 Total Protein Albumin Globulin Albumin/Globulin Ratio Amylase Lipase Urine Color Urine Appearance Urine pH Ur Specific [place] Urine Protein Urine Ketones Urine Blood Urine Nitrate Urine Bilirubin Urine Urobilinogen Ur Leukocyte Esterase Urine WBC (Auto) Urine RBC (Auto) Urine Bacteria Urine Osmolality Urine Glucose Urine Opiates Screen Ur Barbiturates Screen Ur Phencyclidine Scrn Ur Amphetamines Screen U Benzodiazepines Scrn Urine Cocaine Screen U Cannabinoids Screen Serum Alcohol 12/03/18 12/03/18 12/03/18 11:19 11:19 11:50 WBC RBC Hgb Hct MCV MCH MCHC RDW Plt Count MPV Neut % (Auto) Lymph % (Auto) Sac % (Auto) Eos % (Auto) Baso % (Auto) Absolute Neuts (auto) Absolute Lymphs (auto) Absolute Monos (auto) Absolute Eos (auto) Absolute Basos (auto) Absolute Nucleated RBC Nucleated RBC % ESR INR (Anticoag Therapy) APTT VBG pH VBG pCO2 VBG pO2 VBG HCO3 VBG O2 Saturation VBG Base Excess Sodium Potassium Chloride Carbon Dioxide Anion Gap BUN Creatinine Est GFR ( Amer) Est GFR (Non-Af Amer) BUN/Creatinine Ratio Glucose POC Glucose (mg/dL) Glucose Meter Confirm Hemoglobin A1c See comment H Serum Osmolality Lactic Acid Calcium Magnesium Total Bilirubin AST ALT Alkaline Phosphatase Ammonia 33 Total Creatine Kinase Troponin I C-Reactive Protein B-Natriuretic Peptide Total Protein Albumin Globulin Albumin/Globulin Ratio Amylase Lipase Urine Color Straw Urine Appearance Clear Urine pH 6.0 Ur Specific [place] 1.016 Urine Protein Negative Urine Ketones Trace A Urine Blood 1+ A Urine Nitrate Negative Urine Bilirubin Negative Urine Urobilinogen Negative Ur Leukocyte Esterase Negative Urine WBC (Auto) Absent Urine RBC (Auto) 1+(3-5/hpf) A Urine Bacteria Absent Urine Osmolality Urine Glucose 3+(>=500 mg/dl) A Urine Opiates Screen Ur Barbiturates Screen Ur Phencyclidine Scrn Ur Amphetamines Screen U Benzodiazepines Scrn Urine Cocaine Screen U Cannabinoids Screen Serum Alcohol 12/03/18 12/03/18 12/03/18 11:50 11:50 13:26 WBC RBC Hgb Hct MCV MCH MCHC RDW Plt Count MPV Neut % (Auto) Lymph % (Auto) Sac % (Auto) Eos % (Auto) Baso % (Auto) Absolute Neuts (auto) Absolute Lymphs (auto) Absolute Monos (auto) Absolute Eos (auto) Absolute Basos (auto) Absolute Nucleated RBC Nucleated RBC % ESR INR (Anticoag Therapy) APTT VBG pH VBG pCO2 VBG pO2 VBG HCO3 VBG O2 Saturation VBG Base Excess Sodium Potassium Chloride Carbon Dioxide Anion Gap BUN Creatinine Est GFR ( Amer) Est GFR (Non-Af Amer) BUN/Creatinine Ratio Glucose POC Glucose (mg/dL) > 444 H* Glucose Meter Confirm Hemoglobin A1c Serum Osmolality Lactic Acid Calcium Magnesium Total Bilirubin AST ALT Alkaline Phosphatase Ammonia Total Creatine Kinase Troponin I C-Reactive Protein B-Natriuretic Peptide Total Protein Albumin Globulin Albumin/Globulin Ratio Amylase Lipase Urine Color Urine Appearance Urine pH Ur Specific [place] Urine Protein Urine Ketones Urine Blood Urine Nitrate Urine Bilirubin Urine Urobilinogen Ur Leukocyte Esterase Urine WBC (Auto) Urine RBC (Auto) Urine Bacteria Urine Osmolality 397 Urine Glucose Urine Opiates Screen None detected Ur Barbiturates Screen None detected Ur Phencyclidine Scrn None detected Ur Amphetamines Screen None detected U Benzodiazepines Scrn None detected Urine Cocaine Screen None detected U Cannabinoids Screen None detected Serum Alcohol 12/03/18 12/03/18 13:43 13:43 WBC RBC Hgb Hct MCV MCH MCHC RDW Plt Count MPV Neut % (Auto) Lymph % (Auto) Sac % (Auto) Eos % (Auto) Baso % (Auto) Absolute Neuts (auto) Absolute Lymphs (auto) Absolute Monos (auto) Absolute Eos (auto) Absolute Basos (auto) Absolute Nucleated RBC Nucleated RBC % ESR INR (Anticoag Therapy) APTT VBG pH VBG pCO2 VBG pO2 VBG HCO3 VBG O2 Saturation VBG Base Excess Sodium Potassium Chloride Carbon Dioxide Anion Gap BUN Creatinine Est GFR ( Amer) Est GFR (Non-Af Amer) BUN/Creatinine Ratio Glucose POC Glucose (mg/dL) Glucose Meter Confirm 359 H Hemoglobin A1c Serum Osmolality Lactic Acid 3.4 H* Calcium Magnesium Total Bilirubin AST ALT Alkaline Phosphatase Ammonia Total Creatine Kinase Troponin I C-Reactive Protein B-Natriuretic Peptide Total Protein Albumin Globulin Albumin/Globulin Ratio Amylase Lipase Urine Color Urine Appearance Urine pH Ur Specific [place] Urine Protein Urine Ketones Urine Blood Urine Nitrate Urine Bilirubin Urine Urobilinogen Ur Leukocyte Esterase Urine WBC (Auto) Urine RBC (Auto) Urine Bacteria Urine Osmolality Urine Glucose Urine Opiates Screen Ur Barbiturates Screen Ur Phencyclidine Scrn Ur Amphetamines Screen U Benzodiazepines Scrn Urine Cocaine Screen U Cannabinoids Screen Serum Alcohol Imaging: CXR 12/03 no focal infiltrate/effusion/ptx CT abd/pelvis 12/03 chronic pancreatic calcifications+ CT brain 12/03 no acute process; noted left maxillary sinus air-fluid level Assessment: 63y M w/pmhx of DM (on insulin), Chronic Pancreatitis, Chronic back pain, Anxiety disorder, HTN, HLD, CAD, BPH; prior admissions noted for DKA as well as possible ingestion of non-ethanol alcohol requiring transfer to higher level of care for metabolic acidosis possible hemodialysis need. Patient comes to ER now brought in by EMS (also brother). History told as patient was noted to have change in speech and confusion, high blood glucose at home when he called family. 911 was called, EMS responded and found him confused, tachycardic , noted high blood glucose enroute. In ER, tachycardic, afebrile, tachypneic, not hypoxic, confused and combative/agitated, so was given Ativan in ER for agitation. Found to have elevated BG, consistent with DKA, as well as elevated serum alcohol levels of 200+. -Encephalopathy, metabolic and toxic -DKA -Alcohol intoxication -lactic acidosis Chronic back pain Chronic pancreatitis Plan: Neuro- -initial agitation but now calm after bdz administration -CT brain neg for acute pathology; overall nonfocal findings on exam -multiple etiology for deliriuim including acute alcohol intoxication, DKA; ammonia level normal -sepsis workup/cultures -will given NS+thiamine+folate+MVI x1 Liter infusion; start thiamine 100mg daily -Delirium prec; avoid BDZ unless for agitation CVS- -BP stable -Sinus tachycardia from agitation likely intoxication and dehydration -s/p IVF NS 2 L; start NS 125cc/hr -replete K/Mg/Phos as needed -Maintain MAP>65 Resp- -No resp distress noted; on RA -CXR 12/03 without focal process -Wean Fio2 to keep sat>92% if on NC -Bronchodilators PRN, Aspiration prec ID- afebrile. Wbc 5.1. CXR without focal process. Urinalyis without wbc/ bacteria. Low suspicion for clinical sepsis, though SIRS criteria is met with tachycardia/tachypnea, which can be explained by DKA state. Hold IV abx. Will followup cultures from blood/urine. GI- -NPO -GI prophylaxis h2b Renal- -CR okay; no howell; follow urine output -metabolic acidosis may be from DKA or alcohol intoxication, elevated LA may be from either; serum osmol measured 361, calculated ~351-362; osmolal gap 1. Suspicion for alternate alcohol type is low. Will trend BMPs and follow for resolution of acidosis. -Insulin infusion -NS infusion 125cc/hr -replete KCL 20meq x3 runs -BMP/mg/phos q4h while on insulin infusion -strict I/O, replete to keep K>4, Mg>2 -howell as indicated Heme- -hg stable, plt stable -restart ASA for CAD -DVT proph with SCD/lovenox Endo- DKA suspected along with possible alcohol intoxication may cause lactic acidosis; IVF hydration. Hyperglycemia+, urinary ketones+. IV insulin infusion. Check Mg/Phos/K levels and replete as needed. Q1h Fingersticks. -once BG <250, will switch to d5ns if Anion gap remains. Musculsk- pressure ulcer prophylaxis. Bedrest. Wounds- none Nutrition- NPO DVT prophylaxis: SCD, lovenox sq proph GI prophylaxis: h2b Central Line: no Arterial Line: no Howell Cathetor: no Disposition: Admit to ICU; Patient requires Critical Care/ICU for DKA, IV insulin infusion, encephalopathy Expected LOS>2 midnights Patient Clinical Status: guarded, critical Code Status: full code Total Critical Care time is 55 minutes, excluding procedures/teaching Mundo Yates MD Instructor Weaving (Electronically Signed)
[2018-12-03] MEDS: Thiamine IV 100 MG, Folic Acid IV* 1 MG, Multiple Vitamin IV ADULT* 10 ML in NS 0.9% 10... IV ONE ×2 (15:49→17:20)
[2018-12-03] MEDS: KCL 20 MEQ/100 ML IVPREMIX* 20 MEQ/100 ML BAG IV SCH ×3 (15:53→19:53)
--- NOTE | 2018-12-03 15:55 | PN ---
Progress Note - Progress Note Date of Service: 12/03/18 Note: Additional documentation to H&P Patient also noted to have fallen it seems some days back according to him. He doesnt remember what but he slipped or passed out. No LOC after. History is not clear. Left frontal area just above medial portion of left eyebrow shows abrasions, bruising, very small clotted superficial opening, minimal red eccymosis noted, some fluctuance, nontender area. total is probably 3x3cm. CT brain did not demonstrate any sig edema or injury/fracture. assessment - -s/p fall with left frontal head wound/bruise Plan - prn pain meds; fall prec Mundo Yates Director Oncology
[2018-12-03] MEDS: Enoxaparin(*) 40 MG/0.4 ML SYR SUBCUT SCH (16:00)
[2018-12-03 16:28] LABS: BUN/Creatinine Ratio 10.8 (8-20); EGFR African American 129.7 (>60); EGFR Non-African American 107.2 (>60)
[2018-12-03] MEDS: Pancrelipase (NF) 12,000 UNITS CAP.DR PO SCH (17:08)
[2018-12-03 17:47] LABS: Magnesium 1.9 mg/dL (1.9-2.7); Phosphorus 2.7 mg/dL (2.5-5.0)
[2018-12-03] MEDS ORDERED: Thiamine IV 100 MG, Folic Acid IV* 1 MG, Multiple Vitamin IV ADULT* 10 ML in NS 0.9% 10... IV ONE (18:00)
[2018-12-03] MEDS ORDERED: D5NS 0.9% 1000 ML BAG* 1,000 ML IV SCH (18:00)
[2018-12-03 20:11] LABS: BUN/Creatinine Ratio 10.9 (8-20); EGFR African American 153.3 (>60); EGFR Non-African American 126.7 (>60); Magnesium 1.8 mg/dL (1.9-2.7); Phosphorus 2.4 mg/dL (2.5-5.0); Potassium 3.9 mmol/L (3.5-5.0)
[2018-12-03] MEDS ORDERED: Insulin REGULAR(*) Infusion Protocol (IIP), non-DKA Adult Hyperglycemia (2017) IVPB SCH (21:00)
[2018-12-03] MEDS: Famotidine TAB* 20 MG PO SCH (21:04)
[2018-12-03] MEDS: Pregabalin CAP(*) 25 MG PO SCH (21:04)
[2018-12-03] MEDS ORDERED: Morphine 4 MG/ML VIAL (1 ml) 4 MG/ML VIAL IV PRN (21:54)
[2018-12-03] MEDS ORDERED: Dextrose 50% Syringe 50 ML* 25 GM/50 ML SYRINGE IV PUSH PRN (21:54)
--- NOTE | 2018-12-03 22:02 | PN ---
Progress Note - Progress Note Date of Service: 12/03/18 Note: Akse dot see pt who had been refusing fingersticks and insulin gtt. C/o pain "all over". Chronic pain and numbness in b/l feet and abd pain x 24H. Had diarrhea 2 days ago and took a medicine : "diarrhea stopper". Has had no flatus or BM since then On exam abd distended, diffusely tender, decreased BS, voluntary guarding, no rebound. Suspect ileus: will get abd XRay Start morphine prn pain. In re: fingersticks and insulin gtt: anion gap closed and BD in 170's-will stop gtt, place on ISS and fingersticks Q2H
[2018-12-03] MEDS: Insulin LISPRO* 1 UNITS UNIT SUBCUT SCH (22:16)
[2018-12-03] MEDS ORDERED: Magnesium Sulfate 2 GM IV (Premix) IVPB ONE (22:50)
[2018-12-03] MEDS ORDERED: HYDROmorphone INJ1* 1 MG/ML SYRINGE IV SLOW PU PRN (23:23)
[2018-12-04] MEDS: HYDROmorphone INJ1* 1 MG/ML SYRINGE IV SLOW PU PRN ×9 (02:01→22:48)
[2018-12-04] MEDS: Insulin LISPRO* 1 UNITS UNIT SUBCUT SCH ×7 (02:08→22:29)
[2018-12-04 05:20] LABS: Hematocrit 32 % (42-52); Hemoglobin 10.6 g/dL (14.0-18.0); Mean Corpuscular HGB Conc 33 g/dL (31-36); Mean Corpuscular Hemoglobin 24 pg (27-31); Mean Corpuscular Volume 72 fL (80-94); Mean Platelet Volume 9.4 fL (7.4-10.4); Platelet Count 145 10^3/uL (150-450); Red Blood Count 4.45 10^6 /uL (4.18-5.48); Red Cell Distribution Width 18 % (10.5-15)
[2018-12-04 05:47] LABS: BUN/Creatinine Ratio 12.5 (8-20); Calcium 7.5 mg/dL (8.6-10.3); EGFR African American 153.3 (>60); EGFR Non-African American 126.7 (>60); HDL Cholesterol 50.8 mg/dL; Phosphorus 2.7 mg/dL (2.5-5.0)
[2018-12-04 06:00] LABS: Folate > 20.00 ng/mL (>3.99)
[2018-12-04 06:33] LABS: Magnesium 2.3 mg/dL (1.9-2.7); Potassium 3.7 mmol/L (3.5-5.0)
[2018-12-04 07:19] LABS: BUN/Creatinine Ratio 10.6 (8-20); Calcium 7.7 mg/dL (8.6-10.3); EGFR Non-African American 122.3 (>60); Potassium 3.3 mmol/L (3.5-5.0)
[2018-12-04] MEDS: Thiamine TAB* 100 MG TAB PO SCH (08:09)
[2018-12-04] MEDS: Pregabalin CAP(*) 25 MG PO SCH ×3 (08:09→22:32)
[2018-12-04] MEDS: Aspirin EC TAB* 81 MG TAB.EC PO SCH (08:09)
[2018-12-04] MEDS: Famotidine TAB* 20 MG PO SCH (08:09)
[2018-12-04] MEDS ORDERED: Potassium Chlor TAB* 20 MEQ TAB.ER PO ONE (08:58)
[2018-12-04] MEDS: Pancrelipase (NF) 12,000 UNITS CAP.DR PO SCH (09:55)
[2018-12-04 09:58] LABS: Magnesium 2.4 mg/dL (1.9-2.7)
[2018-12-04 10:03] LABS: Phosphorus 2.7 mg/dL (2.5-5.0)
[2018-12-04] MEDS ORDERED: oxyCODONE/Acetamin 5/325 MG* TAB PO PRN (12:12)
--- NOTE | 2018-12-04 12:17 | PN ---
Progress Note - Progress Note Date of Service: 12/04/18 Note: Progress Note -- Critical Care 24 hour events -noted agitation yesterday; but calmed down; wanted to leave AMA -off insulin infusion; making urine, howell+ -afebrile -feels better, eating this morning; last BG 87, but increase with food now -alert, oriented, giving history -BP stable, HR stable -states he didnt drink alcohol but does use some cold meds and mouthwash but denies drinking them -has not used insulin or meds in >1 year; unable to get appts to doctors Tele: NSR Vitals: Vital Signs Temp 98.8 F 12/04/18 11:01 Pulse 87 12/04/18 11:01 Resp 16 12/04/18 11:22 BP 142/82 12/04/18 11:00 Pulse Ox 97 12/04/18 11:01 Intake & Output 12/03/18 12/04/18 12/04/18 18:59 06:59 18:59 Intake Total 630 1545 1040 Output Total 1535 550 510 Balance -905 995 530 Weight 65.8 kg 66.686 kg Intake: IV Fluids 630 1184 Banana Bag 675 D5NS 319 NS 190 IVPB 361 KCL 306 Mag 55 Oral 1040 Output: Urine 275 Howell 235 550 235 Residual 1300 Howell 16 Fr Temperature 1300 Probe O2/Vent: RA Infusions: NS 50cc/hr Current Medications: Aspirin (Aspirin Ec Tab*) 81 mg PO DAILY [facility] Last Admin: 12/04/18 08:09 Dose: 81 mg Dextrose (D50w Syringe 50 Ml*) 12.5 gm IV PUSH .FOR FS < 60 - SS PRN PRN Reason: FS < 60 Enoxaparin Sodium (Lovenox(*)) 40 mg SUBCUT Q24H [facility] Last Admin: 12/03/18 16:00 Dose: 40 mg Famotidine (Pepcid Tab*) 20 mg PO BID [facility] Last Admin: 12/04/18 08:09 Dose: 20 mg Hydromorphone HCl (Dilaudid Inj1s*) 1 mg IV SLOW PU Q2H PRN PRN Reason: PAIN Last Admin: 12/04/18 11:22 Dose: 1 mg Thiamine HCl 100 mg/ Folic Acid 1 mg/ Multivitamins 10 ml / Sodium Chloride 1, 011.2 mls @ 50 mls/hr IV ONCE ONE Stop: 12/04/18 14:13 Last Admin: 12/03/18 17:21 Dose: Not Given Sodium Chloride (Ns 0.9% 1000 Ml) 1,000 mls @ 50 mls/hr IV PER RATE [facility] Insulin Human Lispro (Humalog*) 0 units SUBCUT Q4HR [facility]; Protocol Last Admin: 12/04/18 06:03 Dose: 4 unit Oxycodone/Acetaminophen (Percocet 5/325 Tab*) 1 tab PO Q6H PRN PRN Reason: PAIN - MODERATE TO SEVERE Last Admin: 12/04/18 08:43 Dose: 1 tab Pancrelipase (Zenpep Delayed Cap*) 10,000 units PO TID WITH MEALS [facility] Pregabalin (Lyrica Cap(*)) 75 mg PO TID [facility] Last Admin: 12/04/18 08:09 Dose: 75 mg Thiamine HCl (Vitamin B-1 Tab*) 100 mg PO DAILY [facility] Last Admin: 12/04/18 08:09 Dose: 100 mg Physical Exam: Constitutional: awake, alert, no distress, no diaphoresis Head: normocephalic, left frontal area above left brow with bruise/stable/ improving Eyes: no pallor, no icterus ENT: moist mucous membranes Neck: soft, supple, no jvd, no stridor CVS: normal rate regular, no murmur Resp: bilateral air entry, no rhales, no wheeze, no rhonchi, no acc muscle use Abdomen/GI: soft, nontender, nondistended, BS+ Ext/Msk: warm, pulses+, no edema Skin: intact, warm Neuro: awake, alert, orientedx3, moving all extremities Labs: Laboratory Results - last 24 hr 12/03/18 12/03/18 12/03/18 11:18 11:18 11:19 WBC RBC Hgb Hct MCV MCH MCHC RDW Plt Count MPV ESR 2 Sodium Potassium Chloride Carbon Dioxide Anion Gap BUN Creatinine Est GFR ( Amer) Est GFR (Non-Af Amer) BUN/Creatinine Ratio Glucose POC Glucose (mg/dL) Glucose Meter Confirm Hemoglobin A1c Serum Osmolality 361 H* Lactic Acid Calcium Phosphorus Magnesium Triglycerides Cholesterol LDL Cholesterol HDL Cholesterol Vitamin B12 Folate Urine Color Urine Appearance Urine pH Ur Specific [place] Urine Protein Urine Ketones Urine Blood Urine Nitrate Urine Bilirubin Urine Urobilinogen Ur Leukocyte Esterase Urine WBC (Auto) Urine RBC (Auto) Urine Bacteria Urine Osmolality Urine Glucose Urine Opiates Screen Ur Barbiturates Screen Ur Phencyclidine Scrn Ur Amphetamines Screen U Benzodiazepines Scrn Urine Cocaine Screen U Cannabinoids Screen Serum Alcohol 221 H 12/03/18 12/03/18 12/03/18 11:19 11:19 11:50 WBC RBC Hgb Hct MCV MCH MCHC RDW Plt Count MPV ESR Sodium Potassium Chloride Carbon Dioxide Anion Gap BUN Creatinine Est GFR ( Amer) Est GFR (Non-Af Amer) BUN/Creatinine Ratio Glucose POC Glucose (mg/dL) Glucose Meter Confirm Hemoglobin A1c See comment H Serum Osmolality Lactic Acid 5.1 H* Calcium Phosphorus Magnesium Triglycerides Cholesterol LDL Cholesterol HDL Cholesterol Vitamin B12 Folate Urine Color Straw Urine Appearance Clear Urine pH 6.0 Ur Specific [place] 1.016 Urine Protein Negative Urine Ketones Trace A Urine Blood 1+ A Urine Nitrate Negative Urine Bilirubin Negative Urine Urobilinogen Negative Ur Leukocyte Esterase Negative Urine WBC (Auto) Absent Urine RBC (Auto) 1+(3-5/hpf) A Urine Bacteria Absent Urine Osmolality Urine Glucose 3+(>=500 mg/dl) A Urine Opiates Screen Ur Barbiturates Screen Ur Phencyclidine Scrn Ur Amphetamines Screen U Benzodiazepines Scrn Urine Cocaine Screen U Cannabinoids Screen Serum Alcohol 12/03/18 12/03/18 12/03/18 11:50 11:50 13:26 WBC RBC Hgb Hct MCV MCH MCHC RDW Plt Count MPV ESR Sodium Potassium Chloride Carbon Dioxide Anion Gap BUN Creatinine Est GFR ( Amer) Est GFR (Non-Af Amer) BUN/Creatinine Ratio Glucose POC Glucose (mg/dL) > 444 H* Glucose Meter Confirm Hemoglobin A1c Serum Osmolality Lactic Acid Calcium Phosphorus Magnesium Triglycerides Cholesterol LDL Cholesterol HDL Cholesterol Vitamin B12 Folate Urine Color Urine Appearance Urine pH Ur Specific [place] Urine Protein Urine Ketones Urine Blood Urine Nitrate Urine Bilirubin Urine Urobilinogen Ur Leukocyte Esterase Urine WBC (Auto) Urine RBC (Auto) Urine Bacteria Urine Osmolality 397 Urine Glucose Urine Opiates Screen None detected Ur Barbiturates Screen None detected Ur Phencyclidine Scrn None detected Ur Amphetamines Screen None detected U Benzodiazepines Scrn None detected Urine Cocaine Screen None detected U Cannabinoids Screen None detected Serum Alcohol 05/16/19 05/16/19 05/16/19 13:43 13:43 15:12 WBC RBC Hgb Hct MCV MCH MCHC RDW Plt Count MPV ESR Sodium Potassium Chloride Carbon Dioxide Anion Gap BUN Creatinine Est GFR ( Amer) Est GFR (Non-Af Amer) BUN/Creatinine Ratio Glucose POC Glucose (mg/dL) 342 H Glucose Meter Confirm 359 H Hemoglobin A1c Serum Osmolality Lactic Acid 3.4 H* Calcium Phosphorus Magnesium Triglycerides Cholesterol LDL Cholesterol HDL Cholesterol Vitamin B12 Folate Urine Color Urine Appearance Urine pH Ur Specific [place] Urine Protein Urine Ketones Urine Blood Urine Nitrate Urine Bilirubin Urine Urobilinogen Ur Leukocyte Esterase Urine WBC (Auto) Urine RBC (Auto) Urine Bacteria Urine Osmolality Urine Glucose Urine Opiates Screen Ur Barbiturates Screen Ur Phencyclidine Scrn Ur Amphetamines Screen U Benzodiazepines Scrn Urine Cocaine Screen U Cannabinoids Screen Serum Alcohol 12/03/18 12/03/18 12/03/18 16:00 17:02 18:01 WBC RBC Hgb Hct MCV MCH MCHC RDW Plt Count MPV ESR Sodium 140 Potassium 3.0 L Chloride 109 Carbon Dioxide 19 L Anion Gap 12 H BUN 8 Creatinine 0.74 Est GFR ( Amer) 129.7 Est GFR (Non-Af Amer) 107.2 BUN/Creatinine Ratio 10.8 Glucose 277 H POC Glucose (mg/dL) 241 H 205 H Glucose Meter Confirm Hemoglobin A1c Serum Osmolality Lactic Acid Calcium 8.0 L Phosphorus 2.7 Magnesium 1.9 Triglycerides Cholesterol LDL Cholesterol HDL Cholesterol Vitamin B12 Folate Urine Color Urine Appearance Urine pH Ur Specific [place] Urine Protein Urine Ketones Urine Blood Urine Nitrate Urine Bilirubin Urine Urobilinogen Ur Leukocyte Esterase Urine WBC (Auto) Urine RBC (Auto) Urine Bacteria Urine Osmolality Urine Glucose Urine Opiates Screen Ur Barbiturates Screen Ur Phencyclidine Scrn Ur Amphetamines Screen U Benzodiazepines Scrn Urine Cocaine Screen U Cannabinoids Screen Serum Alcohol 12/03/18 12/03/18 12/03/18 19:00 19:45 19:45 WBC RBC Hgb Hct MCV MCH MCHC RDW Plt Count MPV ESR Sodium 140 Potassium 3.9 Chloride 111 Carbon Dioxide 20 L Anion Gap 9 BUN 7 Creatinine 0.64 L Est GFR ( Amer) 153.3 Est GFR (Non-Af Amer) 126.7 BUN/Creatinine Ratio 10.9 Glucose 161 H POC Glucose (mg/dL) 173 H Glucose Meter Confirm Hemoglobin A1c Serum Osmolality Lactic Acid 1.3 Calcium 8.0 L Phosphorus 2.4 L Magnesium 1.8 L Triglycerides Cholesterol LDL Cholesterol HDL Cholesterol Vitamin B12 Folate Urine Color Urine Appearance Urine pH Ur Specific [place] Urine Protein Urine Ketones Urine Blood Urine Nitrate Urine Bilirubin Urine Urobilinogen Ur Leukocyte Esterase Urine WBC (Auto) Urine RBC (Auto) Urine Bacteria Urine Osmolality Urine Glucose Urine Opiates Screen Ur Barbiturates Screen Ur Phencyclidine Scrn Ur Amphetamines Screen U Benzodiazepines Scrn Urine Cocaine Screen U Cannabinoids Screen Serum Alcohol 12/03/18 12/03/18 12/03/18 20:02 22:07 23:56 WBC RBC Hgb Hct MCV MCH MCHC RDW Plt Count MPV ESR Sodium Potassium Chloride Carbon Dioxide Anion Gap BUN Creatinine Est GFR ( Amer) Est GFR (Non-Af Amer) BUN/Creatinine Ratio Glucose POC Glucose (mg/dL) 165 H 150 H 163 H Glucose Meter Confirm Hemoglobin A1c Serum Osmolality Lactic Acid Calcium Phosphorus Magnesium Triglycerides Cholesterol LDL Cholesterol HDL Cholesterol Vitamin B12 Folate Urine Color Urine Appearance Urine pH Ur Specific [place] Urine Protein Urine Ketones Urine Blood Urine Nitrate Urine Bilirubin Urine Urobilinogen Ur Leukocyte Esterase Urine WBC (Auto) Urine RBC (Auto) Urine Bacteria Urine Osmolality Urine Glucose Urine Opiates Screen Ur Barbiturates Screen Ur Phencyclidine Scrn Ur Amphetamines Screen U Benzodiazepines Scrn Urine Cocaine Screen U Cannabinoids Screen Serum Alcohol 12/04/18 12/04/18 12/04/18 02:05 03:58 04:43 WBC RBC Hgb Hct MCV MCH MCHC RDW Plt Count MPV ESR Sodium Potassium Chloride Carbon Dioxide Anion Gap BUN Creatinine Est GFR ( Amer) Est GFR (Non-Af Amer) BUN/Creatinine Ratio Glucose POC Glucose (mg/dL) 327 H 262 H Glucose Meter Confirm Hemoglobin A1c Serum Osmolality Lactic Acid Calcium Phosphorus 2.7 Magnesium 2.4 Triglycerides Cholesterol LDL Cholesterol HDL Cholesterol Vitamin B12 336 Folate > 20.00 Urine Color Urine Appearance Urine pH Ur Specific [place] Urine Protein Urine Ketones Urine Blood Urine Nitrate Urine Bilirubin Urine Urobilinogen Ur Leukocyte Esterase Urine WBC (Auto) Urine RBC (Auto) Urine Bacteria Urine Osmolality Urine Glucose Urine Opiates Screen Ur Barbiturates Screen Ur Phencyclidine Scrn Ur Amphetamines Screen U Benzodiazepines Scrn Urine Cocaine Screen U Cannabinoids Screen Serum Alcohol 12/04/18 12/04/18 12/04/18 04:55 04:55 06:48 WBC 3.0 L RBC 4.45 Hgb 10.6 L Hct 32 L MCV 72 L MCH 24 L MCHC 33 RDW 18 H Plt Count 145 L MPV 9.4 ESR Sodium 135 138 Potassium 3.7 3.3 L Chloride 110 109 Carbon Dioxide 21 L 24 Anion Gap 4 5 BUN 8 7 Creatinine 0.64 L 0.66 L Est GFR ( Amer) 153.3 148.0 Est GFR (Non-Af Amer) 126.7 122.3 BUN/Creatinine Ratio 12.5 10.6 Glucose 212 H 124 H POC Glucose (mg/dL) Glucose Meter Confirm Hemoglobin A1c Serum Osmolality Lactic Acid Calcium 7.5 L 7.7 L Phosphorus 2.7 Magnesium 2.3 Triglycerides 64 Cholesterol 98 LDL Cholesterol 34 HDL Cholesterol 50.8 Vitamin B12 Folate Urine Color Urine Appearance Urine pH Ur Specific [place] Urine Protein Urine Ketones Urine Blood Urine Nitrate Urine Bilirubin Urine Urobilinogen Ur Leukocyte Esterase Urine WBC (Auto) Urine RBC (Auto) Urine Bacteria Urine Osmolality Urine Glucose Urine Opiates Screen Ur Barbiturates Screen Ur Phencyclidine Scrn Ur Amphetamines Screen U Benzodiazepines Scrn Urine Cocaine Screen U Cannabinoids Screen Serum Alcohol 12/04/18 12/04/18 07:52 11:21 WBC RBC Hgb Hct MCV MCH MCHC RDW Plt Count MPV ESR Sodium Potassium Chloride Carbon Dioxide Anion Gap BUN Creatinine Est GFR ( Amer) Est GFR (Non-Af Amer) BUN/Creatinine Ratio Glucose POC Glucose (mg/dL) 87 385 H Glucose Meter Confirm Hemoglobin A1c Serum Osmolality Lactic Acid Calcium Phosphorus Magnesium Triglycerides Cholesterol LDL Cholesterol HDL Cholesterol Vitamin B12 Folate Urine Color Urine Appearance Urine pH Ur Specific [place] Urine Protein Urine Ketones Urine Blood Urine Nitrate Urine Bilirubin Urine Urobilinogen Ur Leukocyte Esterase Urine WBC (Auto) Urine RBC (Auto) Urine Bacteria Urine Osmolality Urine Glucose Urine Opiates Screen Ur Barbiturates Screen Ur Phencyclidine Scrn Ur Amphetamines Screen U Benzodiazepines Scrn Urine Cocaine Screen U Cannabinoids Screen Serum Alcohol Imaging: CXR 12/03 no focal infiltrate/effusion/ptx CT abd/pelvis 12/03 chronic pancreatic calcifications+ CT brain 12/03 no acute process; noted left maxillary sinus air-fluid level Xray abd 12/04 and 12/03 - nonspec robb pattern; no ileus/obstr noted Assessment: 63y M w/pmhx of DM (on insulin), Chronic Pancreatitis, Chronic back pain, Anxiety disorder, HTN, HLD, CAD, BPH; prior admissions noted for DKA as well as possible ingestion of non-ethanol alcohol requiring transfer to higher level of care for metabolic acidosis possible hemodialysis need. Patient comes to ER now brought in by EMS (also brother). History told as patient was noted to have change in speech and confusion, high blood glucose at home when he called family. 911 was called, EMS responded and found him confused, tachycardic , noted high blood glucose enroute. In ER, tachycardic, afebrile, tachypneic, not hypoxic, confused and combative/agitated, so was given Ativan in ER for agitation. Found to have elevated BG, consistent with DKA, as well as elevated serum alcohol levels of 200+. -Encephalopathy, metabolic and toxic; improved -DKA, resolved -Alcohol intoxication; likely from mouthwash or cough syrup -lactic acidosis -Chronic back pain -Left frontal mild trauma with bruise Chronic pancreatitis Plan: Neuro- -delirium improved; likley from alcohol intoxication and DKA -multiple etiology for deliriuim including acute alcohol intoxication, DKA; ammonia level normal -obtain pain consult for chronic back pain and outpatient followup -CT brain neg for acute pathology; overall nonfocal findings on exam -cont thiamine 100mg daily -Delirium prec; avoid BDZ unless for agitation CVS- -BP stable; HR imrpoved -will continue NS 50cc/hr for continue hydration -making good urine -replete K/Mg/Phos as needed -Maintain MAP>65 Resp- -No resp distress noted; on RA -CXR 12/03 without focal process -Wean Fio2 to keep sat>92% if on NC -Bronchodilators PRN, Aspiration prec ID- afebrile. Wbc 5.1-3 -CXR without focal process. -blood cx neg. Low suspicion for clinical sepsis, nontoxic, improved -monitor off abx GI- -diabetic diet -abd film normal appearing; no abd pain now; tolerating po intake -GI prophylaxis h2b Renal- -Cr stable; K 3.3, aacidosis resolved, LA normalized. -good urine output -replete KCL PO 40meq; Mg and Phos normal -maintain NS 50cc/hr -restart tamsulosin for BPH -d/c howell today -strict I/O, replete to keep K>4, Mg>2 Heme- -hg stable, plt stable -ASA for CAD -DVT proph with SCD/lovenox Endo- -DKA resolved; was due to poor compliance and no insulin -off IV insulin; BG elevated -start glargin 15 u daily; uptitrate; sliding scale insulin with ACHS fingersticks now -may be able to add metformin daily also on discharge if tolerated Musculsk- pressure ulcer prophylaxis. oob to chair, pt/ot -chronic back pain; started on oxycodone/acetaminophen q6h, incre to q4h; obtain pain management consult given previous need for pain managmenet and poorly controlled pain in past also Wounds- none Nutrition- diabetic diet DVT prophylaxis: SCD, lovenox sq proph GI prophylaxis: h2b Central Line: no Arterial Line: no Howell Cathetor: yes; d/c today Disposition: Improved; stable for transfer to medical floor Patient Clinical Status: stable Code Status: full code Mundo Yates MD Sponge Buffer (Electronically Signed)
[2018-12-04] MEDS: PANCRELIPASE PO SCH ×2 (12:50→18:27)
[2018-12-04] MEDS ORDERED: Insulin GLARGINE(*) 1 UNITS UNIT SUBCUT SCH ×2 (13:00→14:00)
[2018-12-04] MEDS: NS 0.9% 1000 ML** 1,000 ML IV SCH ×2 (13:19→17:24)
[2018-12-04] MEDS: Tamsulosin CAP* 0.4 MG PO SCH (13:58)
[2018-12-04] MEDS: oxyCODONE TAB* 5 MG TAB PO PRN ×3 (14:14→22:32)
[2018-12-04] MEDS: Enoxaparin(*) 40 MG/0.4 ML SYR SUBCUT SCH (15:52)
[2018-12-04] MEDS ORDERED: Insulin LISPRO* 1 UNITS UNIT SUBCUT ONE (18:08)
[2018-12-04] MEDS ORDERED: NS 0.9% 500 ML* 500 ML IV ONE (18:10)
[2018-12-04] MEDS ORDERED: HYDROmorphone INJ1* 1 MG/ML SYRINGE IV ONE (20:22)
[2018-12-04] MEDS ORDERED: HYDROmorphone INJ1* 1 MG/ML SYRINGE ONE (20:32)
[2018-12-04] MEDS ORDERED: Insulin GLARGINE(*) 1 UNITS UNIT SUBCUT ONE (20:48)
[2018-12-04] MEDS ORDERED: oxyCODONE SR TAB(*) 10 MG TAB.SR PO SCH (21:00)
[2018-12-05] MEDS: oxyCODONE TAB* 5 MG TAB PO PRN ×5 (03:02→21:25)
[2018-12-05] MEDS: HYDROmorphone INJ1* 1 MG/ML SYRINGE IV SLOW PU PRN ×5 (03:03→21:07)
[2018-12-05 08:56] LABS: Hematocrit 34 % (42-52); Hemoglobin 11.1 g/dL (14.0-18.0); Mean Corpuscular HGB Conc 32 g/dL (31-36); Mean Corpuscular Hemoglobin 24 pg (27-31); Mean Corpuscular Volume 73 fL (80-94); Mean Platelet Volume 8.7 fL (7.4-10.4); Platelet Count 90 10^3/uL (150-450); Red Blood Count 4.69 10^6 /uL (4.18-5.48); Red Cell Distribution Width 18 % (10.5-15); White Blood Count 3.5 10^3/uL (3.5-10.8)
[2018-12-05] MEDS ORDERED: Gabapentin CAP(*) 100 MG PO SCH (09:00)
[2018-12-05 09:02] LABS: BUN/Creatinine Ratio 10.5 (8-20); EGFR Non-African American 90.1 (>60); Magnesium 1.9 mg/dL (1.9-2.7); Potassium 4.2 mmol/L (3.5-5.0)
[2018-12-05] MEDS ORDERED: Dextrose 50% Syringe 50 ML* 25 GM/50 ML SYRINGE IV PUSH PRN (09:35)
[2018-12-05] MEDS: Insulin LISPRO* 1 UNITS UNIT SUBCUT SCH ×6 (09:39→21:08)
[2018-12-05] MEDS: PANCRELIPASE PO SCH ×3 (09:40→17:58)
[2018-12-05] MEDS: Pregabalin CAP(*) 25 MG PO SCH (09:41)
[2018-12-05] MEDS: Famotidine TAB* 20 MG PO SCH (09:43)
[2018-12-05] MEDS: Thiamine TAB* 100 MG TAB PO SCH (09:43)
[2018-12-05] MEDS: Aspirin EC TAB* 81 MG TAB.EC PO SCH (09:43)
[2018-12-05] MEDS: traMADol TAB* 50 MG PO PRN ×2 (09:44→16:45)
[2018-12-05] MEDS: Tamsulosin CAP* 0.4 MG PO SCH (09:44)
[2018-12-05] MEDS: Ondansetron INJ* 2 MG/ML VIAL IV PRN ×2 (09:45→21:26)
[2018-12-05] MEDS: Insulin GLARGINE(*) 1 UNITS UNIT SUBCUT SCH (11:43)
[2018-12-05] MEDS ORDERED: Insulin GLARGINE(*) 1 UNITS UNIT SUBCUT SCH (12:00)
[2018-12-05] MEDS ORDERED: Thiamine IV* 100 MG/ML 2 ML VIAL IM ONE (13:22)
--- NOTE | 2018-12-05 13:31 | PN ---
Subjective Date of Service: 12/05/18 Interval History: Pt seen and examined. Meds and labs reviewed. CC: Chronically in pain in pt abd and chest from what he mentions is due to chronic pancreatitis ROS: Denied SOOD/dizziness, F/C, N/V, CP, SOB, increased cough, sputum production , abd pain, diarrhea, constipation, dysuria, myalgias, arthralgias, throat pain , and new skin lesions. The rest of the 14 point ROS are unremarkable. PHYSICAL EXAM: GEN APPEARANCE: Awake, not in acute distress, frail appearing elderly gentleman HEENT: NC/AT, PERRLA, moist oral mucosa, (-) throat erythema NECK: Soft, supple, (-) cervical LAD, (-)JVD HEART: S1S2 WNL, RRR, No MRG CHEST: CTA, BL, GAE, No W/R/R, tenderness on placing stethoscope on L. side of chest; pt mentions tenderness/pain is chronic due to his chronic pain issues ABD: Soft, ND/(+)tender, (-)rebound; exam could not be completed given pt does not want to complete exam due to tenderness EXT: No C/C/E SKIN: Warm to touch PSYCH: No active psychosis, hallucinations, depression, SI/HI Objective Active Medications: Aspirin (Aspirin Ec Tab*) 81 mg PO DAILY [facility] Last Admin: 12/05/18 09:43 Dose: 81 mg Dextrose (D50w Syringe 50 Ml*) 12.5 gm IV PUSH .FOR FS < 60 - SS PRN PRN Reason: FS < 60 Enoxaparin Sodium (Lovenox(*)) 40 mg SUBCUT Q24H [facility] Last Admin: 12/04/18 15:52 Dose: 40 mg Famotidine (Pepcid Tab*) 20 mg PO DAILY [facility] Last Admin: 12/05/18 09:43 Dose: 20 mg Hydromorphone HCl (Dilaudid Inj1s*) 2 mg IV SLOW PU Q4H PRN PRN Reason: PAIN Last Admin: 12/05/18 11:42 Dose: 2 mg Insulin Glargine (Lantus(*)) 33 units SUBCUT Q24H [facility] Last Admin: 12/05/18 11:43 Dose: 33 units Insulin Human Lispro (Humalog*) 0 units SUBCUT [facility]; Protocol Last Admin: 12/05/18 12:48 Dose: 5 unit Insulin Human Lispro (Humalog*) 6 units SUBCUT AC [facility] Last Admin: 12/05/18 12:50 Dose: 6 units Lorazepam (Ativan Tab(*)) 0 - 6 mg PO .PER [facility] PROTOCOL [facility]; Protocol Ondansetron HCl (Zofran Inj*) 4 mg IV Q6H PRN PRN Reason: NAUSEA Last Admin: 12/05/18 09:45 Dose: 4 mg Oxycodone HCl (Roxycodone Tab*) 10 mg PO Q4H PRN PRN Reason: PAIN - MODERATE TO SEVERE Last Admin: 12/05/18 11:41 Dose: 10 mg Pancrelipase (Zenpep Delayed Cap*) 10,000 units PO TID WITH MEALS [facility] Last Admin: 12/05/18 12:51 Dose: 10,000 units Pregabalin (Lyrica Cap(*)) 100 mg PO TID [facility] Tamsulosin HCl (Flomax Cap*) 0.4 mg PO DAILY [facility] Last Admin: 12/05/18 09:44 Dose: 0.4 mg Thiamine HCl (Vitamin B-1 Tab*) 100 mg PO DAILY [facility] Last Admin: 12/05/18 09:43 Dose: 100 mg Thiamine HCl (Vitamin B1 Iv*) 100 mg IM ONCE ONE Stop: 12/05/18 13:23 Tramadol HCl (Ultram*) 100 mg PO Q6H PRN PRN Reason: PAIN Last Admin: 12/05/18 09:44 Dose: 100 mg Vital Signs - 8 hr 12/05/18 12/05/18 12/05/18 07:30 07:33 07:34 Temperature 97.8 F Pulse Rate 83 Respiratory 20 20 20 Rate Blood Pressure 128/99 (mmHg) O2 Sat by Pulse 99 Oximetry 12/05/18 12/05/18 12/05/18 08:00 08:30 09:38 Temperature Pulse Rate Respiratory 18 20 18 Rate Blood Pressure (mmHg) O2 Sat by Pulse 98 Oximetry 12/05/18 12/05/18 12/05/18 09:41 09:42 09:44 Temperature Pulse Rate Respiratory 18 18 18 Rate Blood Pressure (mmHg) O2 Sat by Pulse Oximetry 12/05/18 12/05/18 12/05/18 11:15 11:41 11:42 Temperature Pulse Rate Respiratory 16 17 16 Rate Blood Pressure (mmHg) O2 Sat by Pulse Oximetry 12/05/18 12/05/18 12/05/18 11:43 11:45 12:21 Temperature 98.8 F Pulse Rate 88 Respiratory 16 17 18 Rate Blood Pressure 132/100 (mmHg) O2 Sat by Pulse 99 Oximetry 12/05/18 12:53 Temperature Pulse Rate Respiratory 17 Rate Blood Pressure (mmHg) O2 Sat by Pulse Oximetry Oxygen Devices in Use Now: None - Nutrition: Malnutrition Diagnosis/Plan Malnutrition Assessment by Registered Dietitian: Malnutrition Assessment Clinical Characteristics Chronic,Moderate Malnutrition Assessment: - 34% wt loss in past one year Criteria - mild to moderate fat and muscle loss per visual assessment (orbital, triceps) Malnutrition Assessment: 1. Glucerna Shakes B-L-D (220 kcals, 10 g prot/ Interventions serv) 2. cont thiamine/folate/MVI supplementation 3. consistent carb diet - reinforce basic concepts (ie: taking prescribed meds, regular meals, and controlled carb portions) 4. follow GI tolerance to meals and adequacy of po intake Malnutrition Assessment: Goals 1. Pt will tolerate diet advancement without GI distress, abd pain 2. Intake will ultimately be adequate to meet needs 3. Glycemic control will remain adequate (<200) 4. Pt will establish regular bowel pattern; no c /o diarrhea or constipation Result Diagrams: 12/05/18 08:33 12/05/18 08:33 Microbiology and Other Data: Microbiology 12/03/18 11:18 Aerobic Blood Culture - Preliminary Blood Venous No Growth Day 2 Anaerobic Blood Culture - Preliminary No Growth Day 2 12/03/18 11:00 Aerobic Blood Culture - Preliminary Blood Venous No Growth Day 2 Anaerobic Blood Culture - Preliminary No Growth Day 2 12/03/18 15:10 Nasal Screen MRSA (PCR) - Final Nasal Mrsa Not Detected Assess/Plan/Problems-Billing Assessment: - Patient Problems (1) Diabetes Current Visit: No Status: Acute Priority: High Onset Date: 06/14/14 Code (s): E11.9 - TYPE 2 DIABETES MELLITUS WITHOUT COMPLICATIONS SNOMED Code(s): 15728747 Comment: -Uncontrolled -DKA resolved -Adjusted lantus and placed pt on qAC lispro as ordered -Continue ISS -Pt mentions he has been non-compliant w/Insulin and his medications for over a year given he is sick and tired of doctors, and feel frustrated with system (2) ETOH abuse Current Visit: Yes Status: Acute Code(s): F10.10 - ALCOHOL ABUSE, UNCOMPLICATED SNOMED Code(s): 24533553 Comment: #ETOH intoxication/abuse: -Advised life-style modifications -Will place pt on WA protocol to monitor for S/S that maybe consistent with possible withdrawal, although no S/S yet observed -Continue MVI (3) Chronic pain Current Visit: Yes Status: Acute Code(s): G89.29 - OTHER CHRONIC PAIN SNOMED Code(s): 50663583 Comment: -Continue PRN Diluadid and Oxycodone -Received one dose Gabapentin and PRN Tramadol as ordered -Will increase Pre-gabalin -Continue watchful waiting -Consider long acting opiates and if not mitigated/improved, consider Dr. Acevedo consult (4) GERD (gastroesophageal reflux disease) Current Visit: Yes Status: Acute Code(s): K21.9 - GASTRO-ESOPHAGEAL REFLUX DISEASE WITHOUT ESOPHAGITIS SNOMED Code(s): 800777240 Comment: -Continue Famotidine (5) DVT prophylaxis Current Visit: Yes Status: Acute Code(s): Z29.9 - ENCOUNTER FOR PROPHYLACTIC MEASURES, UNSPECIFIED SNOMED Code(s): 537769840 Comment: -Continue Lovenox SQ Status and Disposition: -For insulation worker apprentice consult -Awaiting PT eval
[2018-12-05] MEDS ORDERED: Thiamine TAB* 100 MG TAB PO SCH (14:00)
[2018-12-05] MEDS ORDERED: LORazepam TAB(*) 1 MG PO SCH (14:00)
[2018-12-05] MEDS: Pregabalin CAP(*) 100 MG PO SCH ×2 (14:23→21:06)
[2018-12-05] MEDS: Hydrochlorothiazide TAB* 25 MG PO SCH (15:42)
[2018-12-06] MEDS: oxyCODONE TAB* 5 MG TAB PO PRN ×5 (01:01→21:06)
[2018-12-06] MEDS: HYDROmorphone INJ1* 1 MG/ML SYRINGE IV SLOW PU PRN ×6 (01:03→21:05)
[2018-12-06] MEDS: traMADol TAB* 50 MG PO PRN ×2 (01:44→07:42)
[2018-12-06 07:30] LABS: ABS Eosinophils 0.1 10^3/ul (0-0.6); ABS Lymphocytes 0.9 10^3/ul (1.0-4.8); ABS Monocytes 0.2 10^3/ul (0-0.8); ABS Neutrophils 1.3 10^3/ul (1.5-7.7); Eosinophil % 3.6 %; Hematocrit 31 % (42-52); Hemoglobin 9.9 g/dL (14.0-18.0); Lymphocyte % 36.5 %; Mean Corpuscular HGB Conc 32 g/dL (31-36); Mean Corpuscular Hemoglobin 24 pg (27-31); Mean Corpuscular Volume 74 fL (80-94); Mean Platelet Volume 8.7 fL (7.4-10.4); Platelet Count 62 10^3/uL (150-450); Red Blood Count 4.21 10^6 /uL (4.18-5.48); Red Cell Distribution Width 19 % (10.5-15); White Blood Count 2.5 10^3/uL (3.5-10.8)
[2018-12-06 07:46] LABS: ALT 28 U/L (7-52); AST 19 U/L (13-39); Albumin 2.9 g/dL (3.2-5.2); Albumin/Globulin Ratio 1.4 (1-3); Alkaline Phosphatase 67 U/L (34-104); Anion Gap 4 mmol/L (2-11); BUN/Creatinine Ratio 21.3 (8-20); Blood Urea Nitrogen 20 mg/dL (6-24); CO2 Carbon Dioxide 25 mmol/L (22-32); Chloride 107 mmol/L (101-111); EGFR African American 98.4 (>60); EGFR Non-African American 81.3 (>60); Globulin 2.1 g/dL (2-4); Glucose 114 mg/dL (70-100); Magnesium 1.7 mg/dL (1.9-2.7); Phosphorus 4.8 mg/dL (2.5-5.0); Potassium 4.3 mmol/L (3.5-5.0); Sodium 136 mmol/L (135-145)
[2018-12-06] MEDS: Insulin LISPRO* 1 UNITS UNIT SUBCUT SCH ×7 (07:49→21:07)
[2018-12-06] MEDS ORDERED: Magnesium Sulfate IV* 3 GM in NS 0.9% 100 ML* 100 ML IVPB ONE (09:00)
[2018-12-06] MEDS: Hydrochlorothiazide TAB* 25 MG PO SCH (09:10)
[2018-12-06] MEDS: Pregabalin CAP(*) 100 MG PO SCH ×3 (09:10→21:06)
[2018-12-06] MEDS: Famotidine TAB* 20 MG PO SCH (09:10)
[2018-12-06] MEDS: PANCRELIPASE PO SCH ×3 (09:10→17:21)
[2018-12-06] MEDS: Thiamine TAB* 100 MG TAB PO SCH (09:10)
[2018-12-06] MEDS: Tamsulosin CAP* 0.4 MG PO SCH (09:10)
[2018-12-06 09:44] LABS: C Reactive Protein < 1.00 mg/L (<8.01)
[2018-12-06 10:08] LABS: % Iron Saturation 10 % (15-55); Iron 29 ug/dL (50-212); LDH 109 U/L (140-271); Total Iron Binding Capacity 290 mcg/dL (250-450); Transferrin 207 mg/dL (203-362)
[2018-12-06 10:29] LABS: Ferritin 9.7 ng/mL (24-336)
[2018-12-06 10:33] LABS: Erythrocyte Sed Rate 2 mm/Hr (0-19); Folate 10.67 ng/mL (>3.99)
[2018-12-06 11:16] LABS: Corrected Retic Count 0.8 % (0.5-1.5); Hematocrit for Retic CNT 33 % (42-52); Immature Retic Fraction 0.27; RBC Retic Count 4.41 10^6/uL (4.18-5.48)
[2018-12-06 11:27] LABS: INR 0.96 (0.82-1.09)
[2018-12-06 11:28] LABS: Activated Partial Thrombo Time 29.7 seconds (26.0-36.3); Fibrinogen 239.6 mg/dL (110.8-404.3)
[2018-12-06] MEDS: oxyCODONE SR TAB(*) 10 MG TAB.SR PO SCH ×2 (12:45→21:07)
[2018-12-06] MEDS: Insulin GLARGINE(*) 1 UNITS UNIT SUBCUT SCH (12:46)
--- NOTE | 2018-12-06 14:57 | PN ---
Subjective Date of Service: 12/06/18 Interval History: Pt seen and examined. Meds and labs reviewed. CC: Chronic pain unchanged from yesterday despite changes made ROS: Denied SOOD/dizziness, F/C, N/V, CP, SOB, increased cough, sputum production , abd pain, diarrhea, constipation, dysuria, throat pain, and new skin lesions. The rest of the 14 point ROS are unremarkable. PHYSICAL EXAM: GEN APPEARANCE: Awake, not in acute distress, frail appearing elderly gentleman HEENT: NC/AT, PERRLA, moist oral mucosa, (-) throat erythema NECK: Soft, supple, (-) cervical LAD, (-)JVD HEART: S1S2 WNL, RRR, No MRG CHEST: CTA, BL, GAE, No W/R/R, tenderness on placing stethoscope on L. side of chest; pt mentions tenderness/pain is chronic due to his chronic pain issues ABD: Soft, ND/(+)tender, (-)rebound EXT: No C/C/E SKIN: Warm to touch PSYCH: No active psychosis, hallucinations, depression, SI/HI Objective Active Medications: Dextrose (D50w Syringe 50 Ml*) 12.5 gm IV PUSH .FOR FS < 60 - SS PRN PRN Reason: FS < 60 Docusate Sodium (Colace Cap*) 100 mg PO DAILY PRN PRN Reason: CONSTIPATION Famotidine (Pepcid Tab*) 20 mg PO DAILY [facility] Last Admin: 12/06/18 09:10 Dose: 20 mg Ferrous Sulfate (Ferrous Sulfate Tab*) 325 mg PO BID [facility] Hydrochlorothiazide (Hydrodiuril Tab*) 25 mg PO DAILY [facility] Last Admin: 12/06/18 09:10 Dose: 25 mg Hydromorphone HCl (Dilaudid Inj1s*) 2 mg IV SLOW PU Q4H PRN PRN Reason: PAIN Last Admin: 12/06/18 13:17 Dose: 2 mg Insulin Glargine (Lantus(*)) 33 units SUBCUT Q24H [facility] Last Admin: 12/06/18 12:46 Dose: 33 units Insulin Human Lispro (Humalog*) 0 units SUBCUT ACHS [facility]; Protocol Last Admin: 12/06/18 12:20 Dose: Not Given Insulin Human Lispro (Humalog*) 6 units SUBCUT AC [facility] Last Admin: 12/06/18 12:46 Dose: 6 units Lorazepam (Ativan Tab(*)) 0 - 6 mg PO .PER [facility] PROTOCOL [facility]; Protocol Ondansetron HCl (Zofran Inj*) 4 mg IV Q6H PRN PRN Reason: NAUSEA Last Admin: 12/05/18 21:26 Dose: 4 mg Oxycodone HCl (Roxycodone Tab*) 10 mg PO Q4H PRN PRN Reason: PAIN - MODERATE TO SEVERE Last Admin: 12/06/18 09:04 Dose: 10 mg Oxycodone HCl (Oxycontin(*)) 10 mg PO Q12HR [facility] Last Admin: 12/06/18 12:45 Dose: 10 mg Pancrelipase (Zenpep Delayed Cap*) 10,000 units PO TID WITH MEALS [facility] Last Admin: 12/06/18 12:44 Dose: 10,000 units Pregabalin (Lyrica Cap(*)) 200 mg PO TID [facility] Last Admin: 12/06/18 12:44 Dose: 200 mg Tamsulosin HCl (Flomax Cap*) 0.4 mg PO DAILY [facility] Last Admin: 12/06/18 09:10 Dose: 0.4 mg Thiamine HCl (Vitamin B-1 Tab*) 100 mg PO DAILY [facility] Last Admin: 12/06/18 09:10 Dose: 100 mg Tramadol HCl (Ultram*) 100 mg PO Q6H PRN PRN Reason: PAIN Last Admin: 12/06/18 07:42 Dose: 100 mg Vital Signs - 8 hr 12/06/18 12/06/18 12/06/18 07:15 07:42 07:55 Temperature 97.4 F Pulse Rate 71 Respiratory 20 22 14 Rate Blood Pressure 135/85 (mmHg) O2 Sat by Pulse 100 100 Oximetry 12/06/18 12/06/18 12/06/18 09:00 09:04 09:10 Temperature 98.3 F Pulse Rate 113 Respiratory 20 16 16 Rate Blood Pressure 123/107 (mmHg) O2 Sat by Pulse 98 Oximetry 12/06/18 12/06/18 12/06/18 09:30 10:34 10:44 Temperature Pulse Rate Respiratory 16 16 16 Rate Blood Pressure (mmHg) O2 Sat by Pulse Oximetry 12/06/18 12/06/18 12/06/18 11:00 12:44 12:45 Temperature 97.8 F Pulse Rate 96 Respiratory 18 16 16 Rate Blood Pressure 140/85 (mmHg) O2 Sat by Pulse 98 Oximetry 12/06/18 12/06/18 13:17 14:13 Temperature Pulse Rate Respiratory 16 16 Rate Blood Pressure (mmHg) O2 Sat by Pulse Oximetry Oxygen Devices in Use Now: None - Nutrition: Malnutrition Diagnosis/Plan Malnutrition Assessment by Registered Dietitian: Malnutrition Assessment Clinical Characteristics Chronic,Moderate Malnutrition Assessment: - 34% wt loss in past one year Criteria - mild to moderate fat and muscle loss per visual assessment (orbital, triceps) Malnutrition Assessment: 1. Glucerna Shakes B-L-D (220 kcals, 10 g prot/ Interventions serv) 2. cont thiamine/folate/MVI supplementation 3. consistent carb diet - reinforce basic concepts (ie: taking prescribed meds, regular meals, and controlled carb portions) 4. follow GI tolerance to meals and adequacy of po intake Malnutrition Assessment: Goals 1. Pt will tolerate diet advancement without GI distress, abd pain 2. Intake will ultimately be adequate to meet needs 3. Glycemic control will remain adequate (<200) 4. Pt will establish regular bowel pattern; no c /o diarrhea or constipation Result Diagrams: 12/06/18 06:43 12/06/18 06:43 Microbiology and Other Data: Microbiology 12/03/18 11:18 Aerobic Blood Culture - Preliminary Blood Venous No Growth Day 2 Anaerobic Blood Culture - Preliminary No Growth Day 2 12/03/18 11:00 Aerobic Blood Culture - Preliminary Blood Venous No Growth Day 2 Anaerobic Blood Culture - Preliminary No Growth Day 2 12/03/18 15:10 Nasal Screen MRSA (PCR) - Final Nasal Mrsa Not Detected Assess/Plan/Problems-Billing Assessment: - Patient Problems (1) Iron deficiency anemia Current Visit: Yes Status: Acute Code(s): D50.9 - IRON DEFICIENCY ANEMIA, UNSPECIFIED SNOMED Code(s): 20931371 Comment: -Started pt on PO Iron supplements -Start low dose Colace -Now with mild leukopenia and progressive thrombocytopenia -Iron studies, B12, folate, and MMA sent -HIT abs and haptoglobin pending -Hematological W/U does not suggest DIC and/or TTP -D/W Dr. Ray this AM and given MCV is low unlikely due to blood dyscrasias; per Dr. Ray, presentation above not uncommon with patients with alcohol problems; however, pt strongly denies he has had any alcohol recently despite having elevated ROSE MARY on admission (2) Thrombocytopenia Current Visit: Yes Status: Acute Code(s): D69.6 - THROMBOCYTOPENIA, UNSPECIFIED SNOMED Code(s): 580611137 Comment: -Please see above discussion -Awaiting HP4-Abs test to eval for HIT -Continue holding DVTp w/Heparin or LMWH -Hold ASA (3) ETOH abuse Current Visit: Yes Status: Acute Code(s): F10.10 - ALCOHOL ABUSE, UNCOMPLICATED SNOMED Code(s): 41164812 Comment: #ETOH intoxication/abuse: -Advised life-style modifications -Pt strongly denies he has had any alcohol recently despite having elevated ROSE MARY on admission---unclear why this discrepancy -Continue WAM protocol; no PRN needs for BZDs documented since started yesterday -Continue MVI (4) Diabetes Current Visit: No Status: Acute Priority: High Onset Date: 06/14/14 Code (s): E11.9 - TYPE 2 DIABETES MELLITUS WITHOUT COMPLICATIONS SNOMED Code(s): 32092102 Comment: -Improved control -DKA resolved -Continue current regimen -Continue ISS -Pt mentions he has been non-compliant w/Insulin and his medications for over a year given he is sick and tired of doctors, and feel frustrated with system -- -social work msw consult pending -Continue watchful waiting (5) Chronic pain Current Visit: Yes Status: Acute Code(s): G89.29 - OTHER CHRONIC PAIN SNOMED Code(s): 47814674 Comment: -Continue PRN Diluadid and Oxycodone -Will D/C PRN Percocet and briana replace with Oxycodone at different time interval -Will start on OxyContin -Maximized dose of Pre-gabalin -Continue watchful waiting -Consider Dr. Acevedo consult in AM (6) GERD (gastroesophageal reflux disease) Current Visit: Yes Status: Acute Code(s): K21.9 - GASTRO-ESOPHAGEAL REFLUX DISEASE WITHOUT ESOPHAGITIS SNOMED Code(s): 903339292 Comment: -Continue Famotidine (7) DVT prophylaxis Current Visit: Yes Status: Acute Code(s): Z29.9 - ENCOUNTER FOR PROPHYLACTIC MEASURES, UNSPECIFIED SNOMED Code(s): 879593277 Comment: -Continue to hold pharmacologic prophylaxis given worsening thrombocytopenia -Continue w/SCDs Status and Disposition: -For shearing shed worker consult -Continue PT eval
[2018-12-06] MEDS: Ferrous Sulfate TAB* 325 MG PO SCH (21:06)
[2018-12-07] MEDS: HYDROmorphone INJ1* 1 MG/ML SYRINGE IV SLOW PU PRN ×6 (01:30→22:44)
[2018-12-07] MEDS: oxyCODONE TAB* 5 MG TAB PO PRN ×5 (01:31→19:50)
[2018-12-07] MEDS: PANCRELIPASE PO SCH ×3 (08:45→18:40)
[2018-12-07] MEDS: Insulin LISPRO* 1 UNITS UNIT SUBCUT SCH ×7 (08:45→22:57)
[2018-12-07] MEDS: Pregabalin CAP(*) 100 MG PO SCH ×3 (08:45→22:44)
[2018-12-07] MEDS: Hydrochlorothiazide TAB* 25 MG PO SCH (08:45)
[2018-12-07 08:46] LABS: ABS Eosinophils 0.1 10^3/ul (0-0.6); ABS Lymphocytes 0.9 10^3/ul (1.0-4.8); ABS Monocytes 0.2 10^3/ul (0-0.8); ABS Neutrophils 1.7 10^3/ul (1.5-7.7); Eosinophil % 2.6 %; Hematocrit 35 % (42-52); Hemoglobin 10.9 g/dL (14.0-18.0); Mean Corpuscular HGB Conc 31 g/dL (31-36); Mean Corpuscular Hemoglobin 23 pg (27-31); Mean Corpuscular Volume 75 fL (80-94); Mean Platelet Volume 8.3 fL (7.4-10.4); Nucleated Red Blood Cells % 0.1; Platelet Count 84 10^3/uL (150-450); Red Blood Count 4.69 10^6 /uL (4.18-5.48); Red Cell Distribution Width 19 % (10.5-15); White Blood Count 2.8 10^3/uL (3.5-10.8)
[2018-12-07] MEDS: Ferrous Sulfate TAB* 325 MG PO SCH ×2 (08:46→22:43)
[2018-12-07] MEDS: Famotidine TAB* 20 MG PO SCH (08:46)
[2018-12-07] MEDS: Thiamine TAB* 100 MG TAB PO SCH (08:46)
[2018-12-07] MEDS: Tamsulosin CAP* 0.4 MG PO SCH (08:46)
[2018-12-07] MEDS: oxyCODONE SR TAB(*) 10 MG TAB.SR PO SCH (08:56)
[2018-12-07] MEDS ORDERED: Docusate CAP* 100 MG PO PRN (09:00)
[2018-12-07 09:03] LABS: Albumin 3.5 g/dL (3.2-5.2); Albumin/Globulin Ratio 1.5 (1-3); BUN/Creatinine Ratio 22.8 (8-20); Calcium 8.5 mg/dL (8.6-10.3); EGFR African American 78.8 (>60); EGFR Non-African American 65.1 (>60); Globulin 2.4 g/dL (2-4); Magnesium 1.8 mg/dL (1.9-2.7); Phosphorus 4.3 mg/dL (2.5-5.0); Potassium 4.4 mmol/L (3.5-5.0); Total Bilirubin 0.3 mg/dL (0.2-1.0); Total Protein 5.9 g/dL (6.4-8.9)
[2018-12-07] MEDS: Fondaparinux* 2.5 MG/0.5 ML SYRINGE SUBCUT SCH (10:41)
[2018-12-07] MEDS: Insulin GLARGINE(*) 1 UNITS UNIT SUBCUT SCH (12:42)
--- NOTE | 2018-12-07 14:30 | PN ---
Subjective Date of Service: 12/07/18 Interval History: Pt seen and examined. Meds and labs reviewed. CC: Chronic pain unchanged from yesterday despite changes made ROS: Denied SOOD/dizziness, F/C, N/V, CP, SOB, increased cough, sputum production , abd pain, diarrhea, constipation, dysuria, throat pain, and new skin lesions. The rest of the 14 point ROS are unremarkable. PHYSICAL EXAM: GEN APPEARANCE: Awake, not in acute distress, frail appearing elderly gentleman HEENT: NC/AT, PERRLA, moist oral mucosa, (-) throat erythema NECK: Soft, supple, (-) cervical LAD, (-)JVD HEART: S1S2 WNL, RRR, No MRG CHEST: CTA, BL, GAE, No W/R/R, tenderness on placing stethoscope on L. side of chest; pt mentions tenderness/pain is chronic due to his chronic pain issues ABD: Soft, ND/(+)tender, (-)rebound EXT: No C/C/E SKIN: Warm to touch PSYCH: No active psychosis, hallucinations, depression, SI/HI Objective Active Medications: Aspirin (Aspirin 81 Mg Chew Tab*) 81 mg PO DAILY [facility] Dextrose (D50w Syringe 50 Ml*) 12.5 gm IV PUSH .FOR FS < 60 - SS PRN PRN Reason: FS < 60 Docusate Sodium (Colace Cap*) 100 mg PO DAILY PRN PRN Reason: CONSTIPATION Famotidine (Pepcid Tab*) 20 mg PO DAILY [facility] Last Admin: 12/07/18 08:46 Dose: 20 mg Ferrous Sulfate (Ferrous Sulfate Tab*) 325 mg PO BID [facility] Last Admin: 12/07/18 08:46 Dose: 325 mg Fondaparinux (Arixtra*) 2.5 mg SUBCUT DAILY [facility] Last Admin: 12/07/18 10:41 Dose: 2.5 mg Hydrochlorothiazide (Hydrodiuril Tab*) 25 mg PO DAILY [facility] Last Admin: 12/07/18 08:45 Dose: 25 mg Hydromorphone HCl (Dilaudid Inj1s*) 2 mg IV SLOW PU Q4H PRN PRN Reason: PAIN Last Admin: 12/07/18 10:41 Dose: 2 mg Insulin Glargine (Lantus(*)) 33 units SUBCUT Q24H [facility] Last Admin: 12/07/18 12:42 Dose: 33 units Insulin Human Lispro (Humalog*) 0 units SUBCUT ACHS [facility]; Protocol Last Admin: 12/07/18 12:41 Dose: 4 unit Insulin Human Lispro (Humalog*) 6 units SUBCUT AC [facility] Last Admin: 12/07/18 12:42 Dose: 6 units Lorazepam (Ativan Tab(*)) 0 - 6 mg PO .PER [place] PROTOCOL [facility]; Protocol Ondansetron HCl (Zofran Inj*) 4 mg IV Q6H PRN PRN Reason: NAUSEA Last Admin: 12/05/18 21:26 Dose: 4 mg Oxycodone HCl (Roxycodone Tab*) 10 mg PO Q4H PRN PRN Reason: PAIN - MODERATE TO SEVERE Last Admin: 12/07/18 10:40 Dose: 10 mg Oxycodone HCl (Oxycontin(*)) 10 mg PO Q12HR [facility] Last Admin: 12/07/18 08:56 Dose: 10 mg Pancrelipase (Zenpep Delayed Cap*) 10,000 units PO TID WITH MEALS [facility] Last Admin: 12/07/18 12:47 Dose: 10,000 units Pregabalin (Lyrica Cap(*)) 200 mg PO TID [facility] Last Admin: 12/07/18 13:42 Dose: 200 mg Tamsulosin HCl (Flomax Cap*) 0.4 mg PO DAILY [facility] Last Admin: 12/07/18 08:46 Dose: 0.4 mg Thiamine HCl (Vitamin B-1 Tab*) 100 mg PO DAILY [facility] Last Admin: 12/07/18 08:46 Dose: 100 mg Tramadol HCl (Ultram*) 100 mg PO Q6H PRN PRN Reason: PAIN Last Admin: 12/06/18 07:42 Dose: 100 mg Vital Signs - 8 hr 12/07/18 12/07/18 12/07/18 06:26 06:27 07:00 Temperature Pulse Rate Respiratory 18 18 16 Rate Blood Pressure (mmHg) O2 Sat by Pulse Oximetry 12/07/18 12/07/18 12/07/18 07:14 07:30 07:42 Temperature 97.4 F Pulse Rate 84 Respiratory 16 18 16 Rate Blood Pressure 130/83 (mmHg) O2 Sat by Pulse 97 97 Oximetry 12/07/18 12/07/18 12/07/18 08:30 08:45 08:56 Temperature Pulse Rate Respiratory 16 16 16 Rate Blood Pressure (mmHg) O2 Sat by Pulse Oximetry 12/07/18 12/07/18 12/07/18 10:15 10:40 10:41 Temperature Pulse Rate Respiratory 17 16 16 Rate Blood Pressure (mmHg) O2 Sat by Pulse Oximetry 12/07/18 12/07/18 12/07/18 11:00 11:30 11:32 Temperature 98.7 F Pulse Rate 85 Respiratory 17 17 16 Rate Blood Pressure 132/82 (mmHg) O2 Sat by Pulse 100 Oximetry 12/07/18 12/07/18 12:48 13:42 Temperature Pulse Rate Respiratory 17 16 Rate Blood Pressure (mmHg) O2 Sat by Pulse Oximetry Oxygen Devices in Use Now: None - Nutrition: Malnutrition Diagnosis/Plan Malnutrition Assessment by Registered Dietitian: Malnutrition Assessment Clinical Characteristics Chronic,Moderate Malnutrition Assessment: - 34% wt loss in past one year Criteria - mild to moderate fat and muscle loss per visual assessment (orbital, triceps) Malnutrition Assessment: 1. Glucerna Shakes B-L-D (220 kcals, 10 g prot/ Interventions serv) 2. cont thiamine/folate/MVI supplementation 3. consistent carb diet - reinforce basic concepts (ie: taking prescribed meds, regular meals, and controlled carb portions) 4. follow GI tolerance to meals and adequacy of po intake Malnutrition Assessment: Goals 1. Pt will tolerate diet advancement without GI distress, abd pain 2. Intake will ultimately be adequate to meet needs 3. Glycemic control will remain adequate (<200) 4. Pt will establish regular bowel pattern; no c /o diarrhea or constipation Result Diagrams: 12/07/18 08:34 12/07/18 08:34 Microbiology and Other Data: Microbiology 12/03/18 11:18 Aerobic Blood Culture - Preliminary Blood Venous No Growth Day 2 Anaerobic Blood Culture - Preliminary No Growth Day 2 12/03/18 11:00 Aerobic Blood Culture - Preliminary Blood Venous No Growth Day 2 Anaerobic Blood Culture - Preliminary No Growth Day 2 12/03/18 15:10 Nasal Screen MRSA (PCR) - Final Nasal Mrsa Not Detected Assess/Plan/Problems-Billing Assessment: - Patient Problems (1) Iron deficiency anemia Current Visit: Yes Status: Acute Code(s): D50.9 - IRON DEFICIENCY ANEMIA, UNSPECIFIED SNOMED Code(s): 86996335 Comment: -Continue PO Iron supplements -Continue Colace -Mild leukopenia and progressive thrombocytopenia both slightly improved -Iron studies, B12, folate, and MMA sent -HIT abs and haptoglobin pending -Hematological W/U does not suggest DIC and/or TTP -D/W Dr. Ray and given MCV is low unlikely due to blood dyscrasias; per Dr. Ray, presentation above not uncommon with patients with alcohol problems; however, pt strongly denies he has had any alcohol recently despite having elevated ROSE MARY on admission---will await further input (2) Thrombocytopenia Current Visit: Yes Status: Acute Code(s): D69.6 - THROMBOCYTOPENIA, UNSPECIFIED SNOMED Code(s): 901309323 Comment: -Please see above discussion -Improved -Awaiting HP4-Abs test to eval for HIT -Continue holding DVTp w/Heparin or LMWH and will start pt on Arixtra for DVT prophylaxis -Will restart ASA given improvement (3) ETOH abuse Current Visit: Yes Status: Acute Code(s): F10.10 - ALCOHOL ABUSE, UNCOMPLICATED SNOMED Code(s): 24647383 Comment: #ETOH intoxication/abuse: -Advised life-style modifications -Pt strongly denies he has had any alcohol recently despite having elevated ROSE MARY on admission---unclear why this discrepancy -Continue WAM protocol; no PRN needs for BZDs documented since started -Will D/C WAM monitoring in AM if continues to not score -Continue MVI (4) Diabetes Current Visit: No Status: Acute Priority: High Onset Date: 06/14/14 Code (s): E11.9 - TYPE 2 DIABETES MELLITUS WITHOUT COMPLICATIONS SNOMED Code(s): 79649751 Comment: -Improved control -DKA resolved -Continue current regimen -Continue ISS -Pt mentions he has been non-compliant w/Insulin and his medications for over a year given he is sick and tired of doctors, and feel frustrated with system -- -geriatric social worker consult pending -Continue watchful waiting (5) Chronic pain Current Visit: Yes Status: Acute Code(s): G89.29 - OTHER CHRONIC PAIN SNOMED Code(s): 71960811 Comment: -Improved but still further requests adjustments -Continue PRN Diluadid and Oxycodone -Continue OxyContin and Pregabalin -Continue watchful waiting -D/W Dr. Acevedo and will await further input (6) GERD (gastroesophageal reflux disease) Current Visit: Yes Status: Acute Code(s): K21.9 - GASTRO-ESOPHAGEAL REFLUX DISEASE WITHOUT ESOPHAGITIS SNOMED Code(s): 777540801 Comment: -Continue Famotidine (7) DVT prophylaxis Current Visit: Yes Status: Acute Code(s): Z29.9 - ENCOUNTER FOR PROPHYLACTIC MEASURES, UNSPECIFIED SNOMED Code(s): 060177307 Comment: -Begin low dose Arixtra -Continue w/SCDs Status and Disposition: -For balcony worker consult -Refuses to be examined by PT; consider home w/services or possible STR if proves to be unsteady in gait
--- NOTE | 2018-12-07 16:58 | CONSULT ---
Consult Consult: INPATIENT PAIN CONSULTATION Blake Frost is a 63 year old male. According to the patient, he has had abdominal pain for several years after he was diagnosed with pancreatitis. He was a patient of Dr. Hidalgo'aayush and tells me he was getting OxyContin and oxycodone. He is unsure of the doses but says he wasn't getting enough. He left Dr. Hidalgo's practice and stopped taking his pain medications and stopped all his other medications as well. A check of I-stop shows he had no opioids in the last year. He came to the ER acutely on December 03 after he was found by his brother to be confused and delirious. His blood alcohol was elevated but he denied drinking. He was admitted. He had a blood glucose over 500. He was admitted for DKA, given IV fluids. He was given an insulin drip. His confusion cleared. He complained of severe abdominal pain. He was given IV Morphine. Now he is on IV Dilaudid, 2 mg IV Q4 PRN, OxyCOntin 10 Q 12 and oxycodone 10 Q 4 PRN. He says the medications help but they are not enough. He thinks the IV dilaudid helps. He would like it more frequently. He is also on Lyrica 200 mg TID for DPN. I am asked to consult PAST MEDICAL HISTORY: DM, BPH, HTN, HLD, Anxiety, Diabetic Peripheral Neuropathy Allergies Allergy/AdvReac Type Severity Reaction Status Date / Time acetaminophen Allergy Abdominal Verified 12/03/18 10:43 Pain Adhesive Tape Allergy Rash Verified 06/14/14 00:44 aspirin Allergy Bleeding Verified 12/03/18 10:43 atorvastatin Allergy Bleeding Verified 12/03/18 10:43 Bleach (Sodium Hypochlorite) Allergy Rash And Verified 12/03/18 10:43 Itching iodine Allergy Rash Verified 12/03/18 10:43 naproxen Allergy Abdominal Verified 12/03/18 10:43 Pain Current Medications Aspirin (Aspirin 81 Mg Chew Tab*) 81 mg PO DAILY [facility] Dextrose (D50w Syringe 50 Ml*) 12.5 gm IV PUSH .FOR FS < 60 - SS PRN PRN Reason: FS < 60 Docusate Sodium (Colace Cap*) 100 mg PO DAILY PRN PRN Reason: CONSTIPATION Famotidine (Pepcid Tab*) 20 mg PO DAILY [facility] Last Admin: 12/07/18 08:46 Dose: 20 mg Ferrous Sulfate (Ferrous Sulfate Tab*) 325 mg PO BID [facility] Last Admin: 12/07/18 08:46 Dose: 325 mg Fondaparinux (Arixtra*) 2.5 mg SUBCUT DAILY [facility] Last Admin: 12/07/18 10:41 Dose: 2.5 mg Hydrochlorothiazide (Hydrodiuril Tab*) 25 mg PO DAILY [facility] Last Admin: 12/07/18 08:45 Dose: 25 mg Hydromorphone HCl (Dilaudid Inj1s*) 2 mg IV SLOW PU Q4H PRN PRN Reason: PAIN Last Admin: 12/07/18 15:17 Dose: 2 mg Insulin Glargine (Lantus(*)) 33 units SUBCUT Q24H [facility] Last Admin: 12/07/18 12:42 Dose: 33 units Insulin Human Lispro (Humalog*) 0 units SUBCUT ACHS [facility]; Protocol Last Admin: 12/07/18 12:41 Dose: 4 unit Insulin Human Lispro (Humalog*) 6 units SUBCUT AC [facility] Last Admin: 12/07/18 12:42 Dose: 6 units Lorazepam (Ativan Tab(*)) 0 - 6 mg PO .PER [facility] PROTOCOL [facility]; Protocol Ondansetron HCl (Zofran Inj*) 4 mg IV Q6H PRN PRN Reason: NAUSEA Last Admin: 12/05/18 21:26 Dose: 4 mg Oxycodone HCl (Roxycodone Tab*) 10 mg PO Q4H PRN PRN Reason: PAIN - MODERATE TO SEVERE Last Admin: 12/07/18 15:18 Dose: 10 mg Oxycodone HCl (Oxycontin(*)) 10 mg PO Q12HR [facility] Last Admin: 12/07/18 08:56 Dose: 10 mg Pancrelipase (Zenpep Delayed Cap*) 10,000 units PO TID WITH MEALS [facility] Last Admin: 12/07/18 12:47 Dose: 10,000 units Pregabalin (Lyrica Cap(*)) 200 mg PO TID [facility] Last Admin: 12/07/18 13:42 Dose: 200 mg Tamsulosin HCl (Flomax Cap*) 0.4 mg PO DAILY [facility] Last Admin: 12/07/18 08:46 Dose: 0.4 mg Thiamine HCl (Vitamin B-1 Tab*) 100 mg PO DAILY [facility] Last Admin: 12/07/18 08:46 Dose: 100 mg Tramadol HCl (Ultram*) 100 mg PO Q6H PRN PRN Reason: PAIN Last Admin: 12/06/18 07:42 Dose: 100 mg SOCIAL HISTORY: Lives by himself in a trailer in [place]. States he doesn't smoke, denies alcohol despite tox screen on admission, denies marijuana ROS: No chest pain, no SOB Vital Signs Temp Pulse Resp BP Pulse Ox 98.0 F 99 16 116/104 100 12/07/18 16:45 12/07/18 16:45 12/07/18 16:45 12/07/18 16:45 12/07/18 16:45 EXAM: GENERAL: No distress LUNGS: Clear HEART: reg rhythm ABDOMEN: Diffusely tender, a little firm, patient guarding EXTREMITIES: Normal tone NEUROLOGIC: Diminished sensation below shins. Can move 4 extremities ASSESSMENT: 1. Abdominal pain, possible chronic pancreatitis 2. Diabetic Peripheral Neuropathy PLAN: I will d/c tramadol. I will d/c oxycontin and try a fentanyl transdermal patch. I would like him to taper his dilaudid, will lower to 1 mg IV Q 3. He can continue Lyrica for DPN. His non compliance will make follow up difficult.
[2018-12-07] MEDS ORDERED: HYDROmorphone INJ1* 1 MG/ML SYRINGE IV SLOW PU PRN (17:30)
[2018-12-07] MEDS ORDERED: oxyCODONE TAB* 5 MG TAB PO PRN (17:31)
[2018-12-07] MEDS: fentaNYL PATCH 25 MCG/HR TRANSDERM SCH (19:11)
[2018-12-07] MEDS: fentaNYL Patch Check Q Shift 1 NOTE SCH (19:14)
[2018-12-08] MEDS: oxyCODONE TAB* 5 MG TAB PO PRN ×6 (00:11→23:28)
[2018-12-08] MEDS: HYDROmorphone INJ1* 1 MG/ML SYRINGE IV SLOW PU PRN ×9 (02:03→23:29)
[2018-12-08 06:45] LABS: ABS Eosinophils 0.1 10^3/ul (0-0.6); ABS Monocytes 0.2 10^3/ul (0-0.8); ABS Neutrophils 1.4 10^3/ul (1.5-7.7); Eosinophil % 2.4 %; Hematocrit 32 % (42-52); Hemoglobin 10.2 g/dL (14.0-18.0); Lymphocyte % 35.9 %; Mean Corpuscular HGB Conc 32 g/dL (31-36); Mean Corpuscular Hemoglobin 24 pg (27-31); Mean Corpuscular Volume 75 fL (80-94); Mean Platelet Volume 9.1 fL (7.4-10.4); Nucleated Red Blood Cells % 0.1; Platelet Count 71 10^3/uL (150-450); Red Cell Distribution Width 19 % (10.5-15); White Blood Count 2.7 10^3/uL (3.5-10.8)
[2018-12-08] MEDS: fentaNYL Patch Check Q Shift 1 NOTE SCH ×2 (06:53→18:47)
[2018-12-08 06:58] LABS: BUN/Creatinine Ratio 32.4 (8-20); Calcium 8.1 mg/dL (8.6-10.3); EGFR African American 86.6 (>60); EGFR Non-African American 71.6 (>60); Magnesium 1.7 mg/dL (1.9-2.7); Potassium 4.2 mmol/L (3.5-5.0)
[2018-12-08] MEDS ORDERED: Magnesium Sulfate IV* 3 GM in NS 0.9% 100 ML* 100 ML IVPB ONE (08:52)
[2018-12-08] MEDS ORDERED: Cyanocobalamin INJ * 1,000 MCG/ML VIAL 1 ML VIAL IM ONE (09:17)
[2018-12-08] MEDS: Tamsulosin CAP* 0.4 MG PO SCH (09:56)
[2018-12-08] MEDS: Pregabalin CAP(*) 100 MG PO SCH ×3 (09:56→21:14)
[2018-12-08] MEDS: Hydrochlorothiazide TAB* 25 MG PO SCH (09:56)
[2018-12-08] MEDS: Aspirin 81 mg CHEW TAB* 81 MG TAB.CHEW PO SCH (09:57)
[2018-12-08] MEDS: Famotidine TAB* 20 MG PO SCH (09:57)
[2018-12-08] MEDS: Thiamine TAB* 100 MG TAB PO SCH (09:57)
[2018-12-08] MEDS: Insulin LISPRO* 1 UNITS UNIT SUBCUT SCH ×7 (09:57→21:14)
[2018-12-08] MEDS: Ferrous Sulfate TAB* 325 MG PO SCH ×2 (09:57→21:14)
[2018-12-08] MEDS: Fondaparinux* 2.5 MG/0.5 ML SYRINGE SUBCUT SCH (09:58)
[2018-12-08] MEDS: Insulin GLARGINE(*) 1 UNITS UNIT SUBCUT SCH (09:58)
[2018-12-08] MEDS: PANCRELIPASE PO SCH ×3 (09:59→17:48)
--- NOTE | 2018-12-08 10:02 | CONS ---
CONSULTATION REPORT: DATE OF CONSULT: 12/08/18 REFERRING PHYSICIAN: Dr. Pandey. REASON FOR CONSULTATION: Anemia, thrombocytopenia. HISTORY OF PRESENT ILLNESS: This is a 63-year-old male who was admitted on with elevated blood sugars. He has a history of insulin-dependent diabetes, prior admission for diabetic ketoacidosis, chronic pancreatitis, chronic back pain, anxiety as well as history of continuing alcohol use and abuse. On admission, there was a question of alcohol triggering metabolic acidosis. On presenting to the ER, he was found to have changes in speech, be quite confused, and raised blood sugar of greater than 450 with hemoglobin A1c measured at 17.6 and a lactic acid of 3.4, bicarbonate of 14 and moderate elevation in his LFTs, he had an elevated blood alcohol level over 200, but denied drinking. He was agitated on admission and given Ativan. The mental status subsequently improved. He has been managed for the last several days on insulin, improvement of his blood sugars and modification of medicine for severe chronic back pain. Per the patient's report, he felt that he was fuzzy in the brain prior to admission from having high blood sugars. he called his brother, who then brought him to the emergency room. He adamantly denies alcohol or substance use prior to the admission. He does report severe back pain and abdominal pain. The abdominal pain and the back pain were both attributed to chronic pancreatitis. He also complained of feeling weakness and fatigue that has been going on for some time, even years, and difficulty maintaining his weight. Blood sugars have improved during the hospitalization and his chemistries have normalized. He has been seen by Dr. Acevedo to assist with pain management. On admission, he had a CBC with a white count of 5.1, hemoglobin 12.5, MCV of 73 , platelets of 176 and RDW of 18. On 12/06/18, he had a white count of 2.5, neutrophils 1300, lymphocytes 900, hemoglobin 9.9 with an MCV of 74 and platelets went from 176 to 52. Medications that he received during the hospitalization have included aspirin, Lovenox starting at admission, famotidine , hydromorphone, insulin, lorazepam, morphine, Lyrica. With decrease in platelets, the Lovenox was stopped and he has had PF4 antibody sent. Iron and B12 were sent and he has an iron saturation of 10% with a ferritin of 9.7, B12 of 194. Also notable for LDH of 109, which is normal and a creatinine of 1.14. Looking back at prior CBCs, his platelet count has varied between 250 and 300 , down to 47 in the past. It is notable that he had an episode of thrombocytopenia in 2011, it appears during an admission between 09/01/11 and , where his platelets were 72 and then during a January 2014 admission, where his platelets fell down to 47. It does not appear in 2013, he had hematology consultation. I do not see extensive workup. Blood film from today shows several hypersegmented neutrophils, red blood cell morphology is benign without fair evidence of hemolysis. Platelets are small in size and were without clustering. PAST MEDICAL HISTORY: 1. Insulin-dependent diabetes. 2. Chronic pancreatitis, given chronic abdominal pain and chronic back pain. 3. Anxiety disorder. 4. Hypertension. 5. Hyperlipidemia. 6. Coronary artery disease. 7. BPH. PAST SURGICAL HISTORY: Past denies significant past surgeries. CURRENT MEDICATIONS: 1. Thiamine 100 mg a day. 2. Pancrelipase 10,000 units t.i.d. 3. Lispro insulin. 4. Tamsulosin 0.4 mg daily. 5. Ondansetron p.r.n. 6. Famotidine p.r.n. 7. Lorazepam p.r.n. 8. Hydrochlorothiazide 25 mg daily. 9. Lyrica 200 mg t.i.d. 10. Ferrous sulfate 325 b.i.d. 11. Docusate 100 mg daily. 12. Fondaparinux 2.5 subcu daily. 13. Oxycodone. 14. Hydrocodone. 15. Fentanyl patch, currently at 25 mcg. 16. Aspirin 81 mg a day. ALLERGIES: ACETAMINOPHEN, ADHESIVE TAPE, ASPIRIN, ATORVASTATIN, BLEACH, IODINE , and NAPROXEN. SOCIAL HISTORY: Denies using any alcohol over the last year, although his blood alcohol level is elevated on admission. Denies smoking and denies drug use. Lives in a trailer. Brother is a significant source of support. REVIEW OF SYSTEMS: In general, he continues to feel poorly. He complains of very severe pain in his back, which is still not well treated. Denies fever, chills, night sweats. HEENT: Poor dentition. He needs teeth pulled. Lungs: Short of breath with exertion. Cardiac: Denies chest pain or palpitation. GI : His abdomen still hurts. He said he is having normal bowel movements. : Urinates with a BPH medicine. Musculoskeletal: He feels weak and he has a chronic back pain. Skin/Hematology: He has had bruising in the hospital, no rashes. PHYSICAL EXAMINATION: Temperature 98.0, BP 121/88, pulse 88, respirations 18, O2 sat 98%. HEENT: Oral mucosa is moist. No lesions. Poor dentition. No cervical or supraclavicular adenopathy. Lungs: Have crackles bilaterally at the bases, otherwise clear anteriorly. No wheezes. Heart: Regular rate and rhythm. S1, S2. No murmurs or gallops. Abdomen: He is tensed and essentially refused exam. Nodes: No peripheral lymphadenopathy. Extremities: No clubbing , cyanosis or edema. He is alert and oriented and conversational on my exam. Psychiatric: He feels aggressive when describing his history and denying alcoholism. LABORATORY DATA: As noted above. The CT scan done on 12/02/18 shows a normal size liver and normal size spleen, no lymphadenopathy. ASSESSMENT AND PLAN: A 63-year-old male with thrombocytopenia and anemia, moderately low white blood cell count. He presents with potential alcohol abuse and history of recurrent cytopenias in the past. Differential diagnosis include combined B12 and iron deficiency as most likely cause, possible marrow suppression by alcohol, he could have concurrent heparin-induced thrombocytopenia given the precipitous drop in his platelets during the first few days of his admission. It would be early for a new onset but if it is established diagnosis, it could have been re- triggered by his Lovenox. He is now several days in the hospital and not drinking and I suspect his blood counts will slowly rise. I have a low index of suspicion for primary marrow dysfunction at this time. 1. I agree with oral iron, if he is noncompliant on discharge, consider IV iron prior to leaving the hospital. 2. I am checking methylmalonic acid, IM B12 1000 mcg while he is in the hospital. 3. We will check retic count and if elevated, send Maxwell though I suspect he will be a low production anemia. 4. I would follow him in the hospital as an outpatient. Once he has adequate iron and B12 replacement and off alcohol if he remains cytopenic, then a bone marrow biopsy will likely be in order. [id number]/[facility] #: [id number] [place]
--- NOTE | 2018-12-08 15:52 | PN ---
Subjective Date of Service: 12/08/18 Interval History: Pt seen and examined. Meds and labs reviewed. CC: Chronic pain, worse from yesterday ROS: Denied SOOD/dizziness, F/C, N/V, CP, SOB, increased cough, sputum production , abd pain, diarrhea, constipation, dysuria, throat pain, and new skin lesions. The rest of the 14 point ROS are unremarkable. PHYSICAL EXAM: GEN APPEARANCE: Awake, not in acute distress, frail appearing elderly gentleman HEENT: NC/AT, PERRLA, moist oral mucosa, (-) throat erythema NECK: Soft, supple, (-) cervical LAD, (-)JVD HEART: S1S2 WNL, RRR, No MRG CHEST: CTA, BL, GAE, No W/R/R ABD: Soft, ND/(+)tender, (-)rebound EXT: No C/C/E SKIN: Warm to touch PSYCH: No active psychosis, hallucinations, depression, SI/HI Objective Active Medications: Aspirin (Aspirin 81 Mg Chew Tab*) 81 mg PO DAILY [facility] Last Admin: 12/08/18 09:57 Dose: 81 mg Dextrose (D50w Syringe 50 Ml*) 12.5 gm IV PUSH .FOR FS < 60 - SS PRN PRN Reason: FS < 60 Docusate Sodium (Colace Cap*) 100 mg PO DAILY PRN PRN Reason: CONSTIPATION Famotidine (Pepcid Tab*) 20 mg PO DAILY [facility] Last Admin: 12/08/18 09:57 Dose: 20 mg Fentanyl (Duragesic Patch 25 Mcg/Hr*) 25 mcg TRANSDERM Q72H [facility] Last Admin: 12/07/18 19:11 Dose: 25 mcg Ferrous Sulfate (Ferrous Sulfate Tab*) 325 mg PO BID [facility] Last Admin: 12/08/18 09:57 Dose: 325 mg Fondaparinux (Arixtra*) 2.5 mg SUBCUT DAILY [facility] Last Admin: 12/08/18 09:58 Dose: 2.5 mg Hydrochlorothiazide (Hydrodiuril Tab*) 25 mg PO DAILY [facility] Last Admin: 12/08/18 09:56 Dose: 25 mg Hydromorphone HCl (Dilaudid Inj1s*) 1 mg IV SLOW PU Q3H PRN PRN Reason: PAIN - BREAKTHROUGH Last Admin: 12/08/18 14:44 Dose: 1 mg Hydromorphone HCl (Dilaudid Inj1s*) 0.5 mg IV SLOW PU Q4H PRN PRN Reason: PAIN Stop: 12/10/18 11:12 Last Admin: 12/08/18 12:40 Dose: 0.5 mg Insulin Glargine (Lantus(*)) 36 units SUBCUT Q24H [facility] Last Admin: 12/08/18 09:58 Dose: 36 units Insulin Human Lispro (Humalog*) 0 units SUBCUT ACHS [facility]; Protocol Last Admin: 12/08/18 12:47 Dose: 2 unit Insulin Human Lispro (Humalog*) 8 units SUBCUT AC [facility] Last Admin: 12/08/18 12:48 Dose: 8 units Lorazepam (Ativan Tab(*)) 0 - 6 mg PO .PER [facility] PROTOCOL [facility]; Protocol Ondansetron HCl (Zofran Inj*) 4 mg IV Q6H PRN PRN Reason: NAUSEA Last Admin: 12/05/18 21:26 Dose: 4 mg Oxycodone HCl (Roxycodone Tab*) 10 mg PO Q4H PRN PRN Reason: PAIN - SEVERE Last Admin: 12/08/18 14:11 Dose: 10 mg Oxycodone HCl (Roxycodone Tab*) 5 mg PO Q4H PRN PRN Reason: PAIN - MODERATE TO SEVERE Pancrelipase (Zenpep Delayed Cap*) 10,000 units PO TID WITH MEALS [facility] Last Admin: 12/08/18 12:40 Dose: 10,000 units Pharmacy Profile Note (Fentanyl Patch Check Q Shift) 1 note N/A 0700,1900 [facility] Last Admin: 12/08/18 06:53 Dose: 1 note Pregabalin (Lyrica Cap(*)) 200 mg PO TID [facility] Last Admin: 12/08/18 14:11 Dose: 200 mg Tamsulosin HCl (Flomax Cap*) 0.4 mg PO DAILY [facility] Last Admin: 12/08/18 09:56 Dose: 0.4 mg Thiamine HCl (Vitamin B-1 Tab*) 100 mg PO DAILY [facility] Last Admin: 12/08/18 09:57 Dose: 100 mg Vital Signs - 8 hr 12/08/18 12/08/18 12/08/18 08:00 08:06 09:06 Temperature Pulse Rate 88 Respiratory 16 16 16 Rate Blood Pressure (mmHg) O2 Sat by Pulse 98 Oximetry 12/08/18 12/08/18 12/08/18 09:55 09:56 11:17 Temperature 98.4 F Pulse Rate 101 Respiratory 15 15 20 Rate Blood Pressure 128/89 (mmHg) O2 Sat by Pulse 100 Oximetry 12/08/18 12/08/18 12/08/18 11:37 11:55 12:37 Temperature Pulse Rate Respiratory 16 16 16 Rate Blood Pressure (mmHg) O2 Sat by Pulse Oximetry 12/08/18 12/08/18 12/08/18 12:40 13:40 14:11 Temperature Pulse Rate Respiratory 16 16 16 Rate Blood Pressure (mmHg) O2 Sat by Pulse Oximetry 12/08/18 14:44 Temperature Pulse Rate Respiratory 15 Rate Blood Pressure (mmHg) O2 Sat by Pulse Oximetry Oxygen Devices in Use Now: None - Nutrition: Malnutrition Diagnosis/Plan Malnutrition Assessment by Registered Dietitian: Malnutrition Assessment Clinical Characteristics Chronic,Moderate Malnutrition Assessment: - 34% wt loss in past one year Criteria - mild to moderate fat and muscle loss per visual assessment (orbital, triceps) Malnutrition Assessment: 1. Glucerna Shakes B-L-D (220 kcals, 10 g prot/ Interventions serv) 2. cont thiamine/folate/MVI supplementation 3. consistent carb diet - reinforce basic concepts (ie: taking prescribed meds, regular meals, and controlled carb portions) 4. follow GI tolerance to meals and adequacy of po intake Malnutrition Assessment: Goals 1. Pt will tolerate diet advancement without GI distress, abd pain 2. Intake will ultimately be adequate to meet needs 3. Glycemic control will remain adequate (<200) 4. Pt will establish regular bowel pattern; no c /o diarrhea or constipation Result Diagrams: 12/08/18 06:19 12/08/18 06:19 Microbiology and Other Data: Microbiology 12/03/18 11:18 Aerobic Blood Culture - Preliminary Blood Venous No Growth Day 2 Anaerobic Blood Culture - Preliminary No Growth Day 2 12/03/18 11:00 Aerobic Blood Culture - Preliminary Blood Venous No Growth Day 2 Anaerobic Blood Culture - Preliminary No Growth Day 2 12/03/18 15:10 Nasal Screen MRSA (PCR) - Final Nasal Mrsa Not Detected Assess/Plan/Problems-Billing Assessment: - Patient Problems (1) Iron deficiency anemia Current Visit: Yes Status: Acute Code(s): D50.9 - IRON DEFICIENCY ANEMIA, UNSPECIFIED SNOMED Code(s): 31020219 Comment: -Continue PO Iron supplements -Continue Colace -Mild leukopenia and progressive thrombocytopenia both slightly improved -Folate and B12 WNL -MMA sent and pending -HIT abs and haptoglobin pending -Hematological W/U does not suggest DIC and/or TTP -D/W Dr. Ray and given MCV is low unlikely due to blood dyscrasias; per Dr. Ray, presentation above not uncommon with patients with alcohol problems and may have caused some marrow suppression; however, pt strongly denies he has had any alcohol recently despite having elevated ROSE MARY on admission---will await further input (2) Thrombocytopenia Current Visit: Yes Status: Acute Code(s): D69.6 - THROMBOCYTOPENIA, UNSPECIFIED SNOMED Code(s): 043636464 Comment: -Please see above discussion -Slight decrease from yesterday -Awaiting HP4-Abs test to eval for HIT -Continue holding DVTp w/Heparin or LMWH and will start pt on Arixtra for DVT prophylaxis -Continue ASA -Continue watchful waiting (3) ETOH abuse Current Visit: Yes Status: Acute Code(s): F10.10 - ALCOHOL ABUSE, UNCOMPLICATED SNOMED Code(s): 86176024 Comment: #ETOH intoxication/abuse: -Advised life-style modifications -Pt strongly denies he has had any alcohol recently despite having elevated ROSE MARY on admission---unclear why this discrepancy -Continue WAM protocol; no PRN needs for BZDs documented since started -Will D/C WAM monitoring in AM if continues to not score -Continue MVI (4) Diabetes Current Visit: No Status: Acute Priority: High Onset Date: 06/14/14 Code (s): E11.9 - TYPE 2 DIABETES MELLITUS WITHOUT COMPLICATIONS SNOMED Code(s): 04231262 Comment: -Improved control -DKA resolved -Continue current regimen -Continue ISS -Pt mentions he has been non-compliant w/Insulin and his medications for over a year given he is sick and tired of doctors, and feel frustrated with system -- -web content & social media manager consult pending -Continue watchful waiting (5) Chronic pain Current Visit: Yes Status: Acute Code(s): G89.29 - OTHER CHRONIC PAIN SNOMED Code(s): 74443526 Comment: -Appreciate Dr. Morpurgos input -Pt placed on Fentanyl patch and D/Cd Oxycontin; unfortunately pt complains of worsening pain likely due to slow action of Fentanyl patch; ordered additional ) 0.5 mg of PRN IV Dilaudid x 2 days when Fentanyl patch is expected to take effect -Continue PRN Diluadid and Oxycodone -Continue Pregabalin -Continue watchful waiting (6) GERD (gastroesophageal reflux disease) Current Visit: Yes Status: Acute Code(s): K21.9 - GASTRO-ESOPHAGEAL REFLUX DISEASE WITHOUT ESOPHAGITIS SNOMED Code(s): 646900035 Comment: -Continue Famotidine (7) DVT prophylaxis Current Visit: Yes Status: Acute Code(s): Z29.9 - ENCOUNTER FOR PROPHYLACTIC MEASURES, UNSPECIFIED SNOMED Code(s): 719992779 Comment: -Continue low dose Arixtra -Continue w/SCDs -Awaiting HIT-P4 Abs Status and Disposition: -For respite worker consult -Refuses to be examined by PT; consider home w/services or possible STR if proves to be unsteady in gait
[2018-12-08 17:50] LABS: HIT ELISA 0.113 OD (<0.400)
[2018-12-09] MEDS: HYDROmorphone INJ1* 1 MG/ML SYRINGE IV SLOW PU PRN ×12 (00:25→23:50)
[2018-12-09] MEDS: oxyCODONE TAB* 5 MG TAB PO PRN ×5 (03:39→22:13)
[2018-12-09 06:17] LABS: Hematocrit 28 % (42-52); Hemoglobin 8.9 g/dL (14.0-18.0); Mean Corpuscular HGB Conc 32 g/dL (31-36); Mean Corpuscular Hemoglobin 24 pg (27-31); Mean Corpuscular Volume 75 fL (80-94); Mean Platelet Volume 8.7 fL (7.4-10.4); Platelet Count 57 10^3/uL (150-450); Red Blood Count 3.73 10^6 /uL (4.18-5.48); Red Cell Distribution Width 19 % (10.5-15); White Blood Count 2.2 10^3/uL (3.5-10.8)
[2018-12-09 06:40] LABS: BUN/Creatinine Ratio 25.7 (8-20); Calcium 7.6 mg/dL (8.6-10.3); EGFR African American 64.2 (>60); EGFR Non-African American 53.1 (>60); Magnesium 1.9 mg/dL (1.9-2.7); Phosphorus 4.8 mg/dL (2.5-5.0); Potassium 4.7 mmol/L (3.5-5.0)
[2018-12-09] MEDS: fentaNYL Patch Check Q Shift 1 NOTE SCH ×2 (07:00→18:57)
[2018-12-09] MEDS: Aspirin 81 mg CHEW TAB* 81 MG TAB.CHEW PO SCH (08:50)
[2018-12-09] MEDS: Pregabalin CAP(*) 100 MG PO SCH ×3 (08:50→21:11)
[2018-12-09] MEDS: Famotidine TAB* 20 MG PO SCH (08:50)
[2018-12-09] MEDS: Hydrochlorothiazide TAB* 25 MG PO SCH (08:50)
[2018-12-09] MEDS: Ferrous Sulfate TAB* 325 MG PO SCH ×2 (08:50→21:11)
[2018-12-09] MEDS: Tamsulosin CAP* 0.4 MG PO SCH (08:50)
[2018-12-09] MEDS: Thiamine TAB* 100 MG TAB PO SCH (08:50)
[2018-12-09] MEDS: Insulin GLARGINE(*) 1 UNITS UNIT SUBCUT SCH (08:51)
[2018-12-09] MEDS: Insulin LISPRO* 1 UNITS UNIT SUBCUT SCH ×7 (08:52→21:11)
[2018-12-09] MEDS: PANCRELIPASE PO SCH ×3 (08:57→17:26)
[2018-12-09 09:48] LABS: Methylmalonic Acid 1.6 nmol/mL (<=0.40)
[2018-12-09 16:00] LABS: Urine Appearance Clear; Urine Bacteria Absent (Absent); Urine Bilirubin Negative (Negative); Urine Blood 1+ (Negative); Urine Color Yellow; Urine Glucose 1+(50 mg/dL) (Negative); Urine Ketones Negative (Negative); Urine Nitrite Negative (Negative); Urine Protein Negative (Negative); Urine Red Blood Cell Trace(0-2/hpf) (Absent); Urine Specific Gravity 1.013 (1.010-1.030); Urine Urobilinogen Negative (Negative); Urine White Blood Cell Trace(0-5/hpf) (Absent)
[2018-12-09 16:21] LABS: Urine Creatinine Concentration 50.19 mg/dL
--- NOTE | 2018-12-09 18:19 | PN ---
Subjective Date of Service: 12/09/18 Interval History: Pt seen and examined. Meds and labs reviewed. Per Annabel, his RN. Pt was observed to have been performing calf raises in the bathroom and appeared to have well controlled pain. Mentioned that pt suddenly complained of pain and appear to be in distress from it when pt noticed her presence. D/W Annabel in person that this last observation was not present from note yesterday and mentioned this will be added in as part of her note and will defer. Pt has been challenging and refuses many tests offered and requires constant reassurance but otherwise reasonable when situation is further explained. CC: Chronic pain, worse from yesterday; unchanged ROS: Denied SOOD/dizziness, F/C, N/V, CP, SOB, increased cough, sputum production , abd pain, diarrhea, constipation, dysuria, throat pain, and new skin lesions. The rest of the 14 point ROS are unremarkable. PHYSICAL EXAM: GEN APPEARANCE: Awake, not in acute distress, frail appearing elderly gentleman HEENT: NC/AT, PERRLA, moist oral mucosa, (-) throat erythema NECK: Soft, supple, (-) cervical LAD, (-)JVD HEART: S1S2 WNL, RRR, No MRG CHEST: CTA, BL, GAE, No W/R/R ABD: Soft, ND/(+)tender, (-)rebound EXT: No C/C/E SKIN: Warm to touch, (+) poor skin turgor in bony prominences PSYCH: No active psychosis, hallucinations, depression, SI/HI Objective Active Medications: Aspirin (Aspirin 81 Mg Chew Tab*) 81 mg PO DAILY [facility] Last Admin: 12/09/18 08:50 Dose: 81 mg Dextrose (D50w Syringe 50 Ml*) 12.5 gm IV PUSH .FOR FS < 60 - SS PRN PRN Reason: FS < 60 Docusate Sodium (Colace Cap*) 100 mg PO DAILY PRN PRN Reason: CONSTIPATION Famotidine (Pepcid Tab*) 20 mg PO DAILY [facility] Last Admin: 12/09/18 08:50 Dose: 20 mg Fentanyl (Duragesic Patch 25 Mcg/Hr*) 25 mcg TRANSDERM Q72H [facility] Last Admin: 12/07/18 19:11 Dose: 25 mcg Ferrous Sulfate (Ferrous Sulfate Tab*) 325 mg PO BID [facility] Last Admin: 12/09/18 08:50 Dose: 325 mg Hydrochlorothiazide (Hydrodiuril Tab*) 25 mg PO DAILY [facility] Last Admin: 12/09/18 08:50 Dose: 25 mg Hydromorphone HCl (Dilaudid Inj1s*) 1 mg IV SLOW PU Q3H PRN PRN Reason: PAIN - BREAKTHROUGH Last Admin: 12/09/18 15:48 Dose: 1 mg Hydromorphone HCl (Dilaudid Inj1s*) 0.5 mg IV SLOW PU Q4H PRN PRN Reason: PAIN Stop: 12/10/18 11:12 Last Admin: 12/09/18 16:56 Dose: 0.5 mg Insulin Glargine (Lantus(*)) 38 units SUBCUT Q24HR [facility] Insulin Human Lispro (Humalog*) 0 units SUBCUT ACHS [facility]; Protocol Last Admin: 12/09/18 17:38 Dose: 2 unit Insulin Human Lispro (Humalog*) 10 units SUBCUT AC [facility] Last Admin: 12/09/18 17:38 Dose: 10 units Ondansetron HCl (Zofran Inj*) 4 mg IV Q6H PRN PRN Reason: NAUSEA Last Admin: 12/05/18 21:26 Dose: 4 mg Oxycodone HCl (Roxycodone Tab*) 10 mg PO Q4H PRN PRN Reason: PAIN - SEVERE Last Admin: 12/09/18 17:26 Dose: 10 mg Oxycodone HCl (Roxycodone Tab*) 5 mg PO Q4H PRN PRN Reason: PAIN - MODERATE TO SEVERE Pancrelipase (Zenpep Delayed Cap*) 10,000 units PO TID WITH MEALS [facility] Last Admin: 12/09/18 17:26 Dose: 10,000 units Pharmacy Profile Note (Fentanyl Patch Check Q Shift) 1 note N/A 0700,1900 [facility] Last Admin: 12/09/18 07:00 Dose: 1 note Pregabalin (Lyrica Cap(*)) 200 mg PO TID [facility] Last Admin: 12/09/18 13:23 Dose: 200 mg Tamsulosin HCl (Flomax Cap*) 0.4 mg PO DAILY [facility] Last Admin: 12/09/18 08:50 Dose: 0.4 mg Thiamine HCl (Vitamin B-1 Tab*) 100 mg PO DAILY [facility] Last Admin: 12/09/18 08:50 Dose: 100 mg Vital Signs - 8 hr 12/09/18 12/09/18 12/09/18 10:32 10:48 11:40 Temperature 97.7 F Pulse Rate 100 Respiratory 16 15 14 Rate Blood Pressure 120/75 (mmHg) O2 Sat by Pulse 98 Oximetry 12/09/18 12/09/18 12/09/18 11:48 12:42 12:47 Temperature Pulse Rate Respiratory 17 17 17 Rate Blood Pressure (mmHg) O2 Sat by Pulse Oximetry 12/09/18 12/09/18 12/09/18 13:23 13:47 14:42 Temperature Pulse Rate Respiratory 17 15 16 Rate Blood Pressure (mmHg) O2 Sat by Pulse Oximetry 12/09/18 12/09/18 12/09/18 15:48 16:48 16:56 Temperature Pulse Rate Respiratory 16 16 16 Rate Blood Pressure (mmHg) O2 Sat by Pulse Oximetry 12/09/18 12/09/18 17:26 17:55 Temperature Pulse Rate Respiratory 15 15 Rate Blood Pressure (mmHg) O2 Sat by Pulse Oximetry Oxygen Devices in Use Now: None - Nutrition: Malnutrition Diagnosis/Plan Malnutrition Assessment by Registered Dietitian: Malnutrition Assessment Clinical Characteristics Chronic,Moderate Malnutrition Assessment: - 34% wt loss in past one year Criteria - mild to moderate fat and muscle loss per visual assessment (orbital, triceps) Malnutrition Assessment: 1. Glucerna Shakes B-L-D (220 kcals, 10 g prot/ Interventions serv) 2. cont thiamine/folate/MVI supplementation 3. consistent carb diet - reinforce basic concepts (ie: taking prescribed meds, regular meals, and controlled carb portions) 4. follow GI tolerance to meals and adequacy of po intake Malnutrition Assessment: Goals 1. Pt will tolerate diet advancement without GI distress, abd pain 2. Intake will ultimately be adequate to meet needs 3. Glycemic control will remain adequate (<200) 4. Pt will establish regular bowel pattern; no c /o diarrhea or constipation Result Diagrams: 12/09/18 05:59 12/09/18 05:59 Microbiology and Other Data: Microbiology 12/03/18 11:18 Aerobic Blood Culture - Preliminary Blood Venous No Growth Day 2 Anaerobic Blood Culture - Preliminary No Growth Day 2 12/03/18 11:00 Aerobic Blood Culture - Preliminary Blood Venous No Growth Day 2 Anaerobic Blood Culture - Preliminary No Growth Day 2 12/03/18 15:10 Nasal Screen MRSA (PCR) - Final Nasal Mrsa Not Detected Assess/Plan/Problems-Billing Assessment: - Patient Problems (1) Iron deficiency anemia Current Visit: Yes Status: Acute Code(s): D50.9 - IRON DEFICIENCY ANEMIA, UNSPECIFIED SNOMED Code(s): 68313655 Comment: -Continue PO Iron supplements -Continue Colace -Mild leukopenia and progressive thrombocytopenia both slightly improved -Folate and B12 WNL, however, B12 is in lower limit of normal -MMA sent and pending -HIT abs and haptoglobin pending -Hematological W/U does not suggest DIC and/or TTP -D/W Dr. Ray and given MCV is low unlikely due to blood dyscrasias; per Dr. Ray, presentation above not uncommon with patients with alcohol problems and may have caused some marrow suppression; however, pt strongly denies he has had any alcohol recently despite having elevated ROSE MARY on admission---will await further input ; in addition, B12 in the low side of being normal, along with high ETOH levels on admission suggests pt may be down playing his ETOH problems (2) REG (acute kidney injury) Current Visit: Yes Status: Acute Code(s): N17.9 - ACUTE KIDNEY FAILURE, UNSPECIFIED SNOMED Code(s): 89086763 Comment: -Mild -Likely due to poor PO intake per phys exam above that led to DHN -Refused IVF but mentions he will drink more and will defer -Sent for urine lytes to determine causeawaiting labs -Renal U/S: (-)Hydronephrosis; trabeculation of bladder wall -Continue watchful waiting (3) Thrombocytopenia Current Visit: Yes Status: Acute Code(s): D69.6 - THROMBOCYTOPENIA, UNSPECIFIED SNOMED Code(s): 287049311 Comment: -Please see above discussion -Slight decrease from yesterday - HP4-Abs test does NOT suggest HIT; D/Cd Arixtra today due to worsening thrombocytopenia close to 50K; if pts thrombocytopenia rebounds, may be placed back on heparin or LMWH products -Continue ASA -Continue watchful waiting (4) ETOH abuse Current Visit: Yes Status: Acute Code(s): F10.10 - ALCOHOL ABUSE, UNCOMPLICATED SNOMED Code(s): 19827390 Comment: #ETOH intoxication/abuse: -Advised life-style modifications -Pt strongly denies he has had any alcohol recently despite having elevated ROSE MARY on admission---unclear why this discrepancy -Has not required Ativan PRN per [facility] since it began; will D/C [facility] protocol now -Continue MVI (5) Diabetes Current Visit: No Status: Acute Priority: High Onset Date: 06/14/14 Code (s): E11.9 - TYPE 2 DIABETES MELLITUS WITHOUT COMPLICATIONS SNOMED Code(s): 00825065 Comment: -Improved control -DKA resolved -Continue current regimen -Continue ISS -Pt mentions he has been non-compliant w/Insulin and his medications for over a year given he is sick and tired of doctors, and feel frustrated with system -- -social services manager consult pending -Continue watchful waiting (6) Chronic pain Current Visit: Yes Status: Acute Code(s): G89.29 - OTHER CHRONIC PAIN SNOMED Code(s): 49111453 Comment: -Appreciate Dr. Zaragoza input -Pt placed on Fentanyl patch and D/Cd Oxycontin; unfortunately pt complains of worsening pain likely due to slow action of Fentanyl patch; ordered additional ) 0.5 mg of PRN IV Dilaudid x 2 days when Fentanyl patch is expected to take effect; will defer w/Dr. Acevedo for further pain med titration especially given concerning report above by nursing staff for possible malingering although he does have evidence of chronic pancreatitis on imagingwill defer -Continue PRN Diluadid and Oxycodone -Continue Pregabalin -Continue watchful waiting (7) GERD (gastroesophageal reflux disease) Current Visit: Yes Status: Acute Code(s): K21.9 - GASTRO-ESOPHAGEAL REFLUX DISEASE WITHOUT ESOPHAGITIS SNOMED Code(s): 952995462 Comment: -Continue Famotidine (8) DVT prophylaxis Current Visit: Yes Status: Acute Code(s): Z29.9 - ENCOUNTER FOR PROPHYLACTIC MEASURES, UNSPECIFIED SNOMED Code(s): 902656854 Comment: -D/C Arixtra; please see discussion above -Continue w/SCDs - HIT-P4 Abs (-) Status and Disposition: -For sail lay out worker consult -Refuses to be examined by PT; consider home w/services or possible STR if proves to be unsteady in gait -Concerns for possible pain seeking/malingering behavior by staff as well as suspicion of downplaying alcoholism, along with non-compliance with previous practitioners
[2018-12-10] MEDS: oxyCODONE TAB* 5 MG TAB PO PRN ×5 (03:20→20:26)
[2018-12-10] MEDS: HYDROmorphone INJ1* 1 MG/ML SYRINGE IV SLOW PU PRN ×9 (03:21→23:26)
[2018-12-10] MEDS: fentaNYL Patch Check Q Shift 1 NOTE SCH ×2 (06:26→18:49)
[2018-12-10 07:08] LABS: BUN/Creatinine Ratio 26.7 (8-20); Calcium 7.6 mg/dL (8.6-10.3); EGFR African American 67.1 (>60); EGFR Non-African American 55.4 (>60); Potassium 4.4 mmol/L (3.5-5.0)
[2018-12-10] MEDS ORDERED: Insulin LISPRO* 1 UNITS UNIT SUBCUT ONE (08:00)
[2018-12-10] MEDS: Insulin LISPRO* 1 UNITS UNIT SUBCUT SCH ×7 (08:12→20:29)
[2018-12-10] MEDS: Tamsulosin CAP* 0.4 MG PO SCH (08:22)
[2018-12-10] MEDS: PANCRELIPASE PO SCH ×3 (08:22→16:32)
[2018-12-10] MEDS: Pregabalin CAP(*) 100 MG PO SCH ×3 (08:23→20:28)
[2018-12-10] MEDS: Hydrochlorothiazide TAB* 25 MG PO SCH (08:23)
[2018-12-10] MEDS: Ferrous Sulfate TAB* 325 MG PO SCH ×2 (08:23→20:28)
[2018-12-10] MEDS: Thiamine TAB* 100 MG TAB PO SCH (08:23)
[2018-12-10] MEDS: Famotidine TAB* 20 MG PO SCH (08:23)
[2018-12-10] MEDS: Aspirin 81 mg CHEW TAB* 81 MG TAB.CHEW PO SCH (08:23)
[2018-12-10] MEDS: Cyanocobalamin INJ * 1,000 MCG/ML VIAL 1 ML VIAL IM SCH (08:28)
[2018-12-10 08:35] LABS: Hematocrit 28 % (42-52); Hemoglobin 8.9 g/dL (14.0-18.0); Mean Corpuscular HGB Conc 32 g/dL (31-36); Mean Corpuscular Hemoglobin 24 pg (27-31); Mean Corpuscular Volume 75 fL (80-94); Mean Platelet Volume 9.9 fL (7.4-10.4); Platelet Count 56 10^3/uL (150-450); Red Blood Count 3.75 10^6 /uL (4.18-5.48); Red Cell Distribution Width 19 % (10.5-15); White Blood Count 1.5 10^3/uL (3.5-10.8)
[2018-12-10] MEDS ORDERED: Ferric Gluconate IV* 125 MG in NS 0.9% 100 ML* 100 ML IVPB SCH (09:00)
[2018-12-10] MEDS ORDERED: Insulin GLARGINE(*) 1 UNITS UNIT SUBCUT SCH (09:00)
[2018-12-10 11:41] LABS: ABS Lymphocytes 0.4 10^3/ul (1.0-4.8); ABS Monocytes 0.2 10^3/ul (0-0.8); ABS Neutrophils 0.8 10^3/ul (1.5-7.7); Eosinophil % 2.5 %; Lymphocyte % 28.3 %; Nucleated Red Blood Cells % 0.3
[2018-12-10 12:16] LABS: Albumin 2.6 g/dL (3.4-4.7); Albumin/Globulin Ratio 1.09; Gamma Globulin 0.8 g/dL (0.6-1.6)
[2018-12-10] MEDS: fentaNYL PATCH 25 MCG/HR TRANSDERM SCH (16:28)
--- NOTE | 2018-12-10 19:31 | PN ---
Subjective Date of Service: 12/10/18 Interval History: Patient seen today, still complaining of increase abdominal pain, refused his IV iron this morning. complaining of headache, low back pain. Past Medical History: Unchanged from Admission Objective Active Medications: Aspirin (Aspirin 81 Mg Chew Tab*) 81 mg PO DAILY [facility] Last Admin: 12/10/18 08:23 Dose: 81 mg Cyanocobalamin (Vitamin B12 Inj *) 1,000 mcg IM DAILY [facility] Stop: 12/14/18 09:01 Last Admin: 12/10/18 08:28 Dose: Not Given Dextrose (D50w Syringe 50 Ml*) 12.5 gm IV PUSH .FOR FS < 60 - SS PRN PRN Reason: FS < 60 Docusate Sodium (Colace Cap*) 100 mg PO DAILY PRN PRN Reason: CONSTIPATION Famotidine (Pepcid Tab*) 20 mg PO DAILY [facility] Last Admin: 12/10/18 08:23 Dose: 20 mg Fentanyl (Duragesic Patch 25 Mcg/Hr*) 25 mcg TRANSDERM Q72H [facility] Last Admin: 12/10/18 16:28 Dose: 25 mcg Ferrous Sulfate (Ferrous Sulfate Tab*) 325 mg PO BID [facility] Last Admin: 12/10/18 08:23 Dose: 325 mg Hydrochlorothiazide (Hydrodiuril Tab*) 25 mg PO DAILY [facility] Last Admin: 12/10/18 08:23 Dose: 25 mg Hydromorphone HCl (Dilaudid Inj1s*) 1 mg IV SLOW PU Q3H PRN PRN Reason: PAIN - BREAKTHROUGH Last Admin: 12/10/18 17:21 Dose: 1 mg Ferric Sodium Gluconate Complex 125 mg/ Sodium Chloride 110 mls @ 110 mls/hr IVPB Q48H [facility] Stop: 12/24/18 09:59 Last Admin: 12/10/18 08:40 Dose: Not Given Insulin Glargine (Lantus(*)) 45 units SUBCUT Q24HR [facility] Insulin Human Lispro (Humalog*) 0 units SUBCUT ACHS [facility]; Protocol Last Admin: 12/10/18 17:17 Dose: 3 unit Insulin Human Lispro (Humalog*) 10 units SUBCUT AC [facility] Last Admin: 12/10/18 17:18 Dose: 10 units Ondansetron HCl (Zofran Inj*) 4 mg IV Q6H PRN PRN Reason: NAUSEA Last Admin: 12/05/18 21:26 Dose: 4 mg Oxycodone HCl (Roxycodone Tab*) 10 mg PO Q4H PRN PRN Reason: PAIN - SEVERE Last Admin: 12/10/18 16:21 Dose: 10 mg Oxycodone HCl (Roxycodone Tab*) 5 mg PO Q4H PRN PRN Reason: PAIN - MODERATE TO SEVERE Pancrelipase (Zenpep Delayed Cap*) 10,000 units PO TID WITH MEALS [facility] Last Admin: 12/10/18 16:32 Dose: 10,000 units Pharmacy Profile Note (Fentanyl Patch Check Q Shift) 1 note N/A 0700,1900 [facility] Last Admin: 12/10/18 18:49 Dose: 1 note Pregabalin (Lyrica Cap(*)) 200 mg PO TID [facility] Last Admin: 12/10/18 12:24 Dose: 200 mg Tamsulosin HCl (Flomax Cap*) 0.4 mg PO DAILY [facility] Last Admin: 12/10/18 08:22 Dose: 0.4 mg Thiamine HCl (Vitamin B-1 Tab*) 100 mg PO DAILY [facility] Last Admin: 12/10/18 08:23 Dose: 100 mg Vital Signs - 8 hr 12/10/18 12/10/18 12/10/18 11:59 12:09 12:24 Temperature 97.8 F Pulse Rate 82 Respiratory 18 16 18 Rate Blood Pressure 131/77 (mmHg) O2 Sat by Pulse 99 Oximetry 12/10/18 12/10/18 12/10/18 12:27 13:10 13:28 Temperature Pulse Rate Respiratory 18 18 18 Rate Blood Pressure (mmHg) O2 Sat by Pulse Oximetry 12/10/18 12/10/18 12/10/18 13:30 14:21 15:52 Temperature 98.6 F Pulse Rate 92 Respiratory 18 18 16 Rate Blood Pressure 114/76 (mmHg) O2 Sat by Pulse 99 Oximetry 12/10/18 12/10/18 12/10/18 16:21 16:28 16:56 Temperature Pulse Rate Respiratory 18 18 16 Rate Blood Pressure (mmHg) O2 Sat by Pulse Oximetry 12/10/18 12/10/18 17:21 18:15 Temperature Pulse Rate Respiratory 18 17 Rate Blood Pressure (mmHg) O2 Sat by Pulse Oximetry Oxygen Devices in Use Now: None Appearance: Awake, alert. no distress in bed resting. Eyes: No Scleral Icterus, - - EOMI Ears/Nose/Mouth/Throat: NL Teeth, Lips, Gums Neck: NL Appearance and Movements; NL JVP, Trachea Midline Respiratory: Symmetrical Chest Expansion and Respiratory Effort, Clear to Auscultation Cardiovascular: NL Sounds; No Murmurs; No JVD, RRR Abdominal: - - soft, tender to superficial palpations Extremities: No Edema Skin: No Rash or Ulcers - Nutrition: Malnutrition Diagnosis/Plan Malnutrition Assessment by Registered Dietitian: Malnutrition Assessment Clinical Characteristics Chronic,Moderate Malnutrition Assessment: - 34% wt loss in past one year Criteria - mild to moderate fat and muscle loss per visual assessment (orbital, triceps) Malnutrition Assessment: 1. Glucerna Shakes B-L-D (220 kcals, 10 g prot/ Interventions serv) 2. cont thiamine/folate/MVI supplementation 3. consistent carb diet - reinforce basic concepts (ie: taking prescribed meds, regular meals, and controlled carb portions) 4. follow GI tolerance to meals and adequacy of po intake Malnutrition Assessment: Goals 1. Pt will tolerate diet advancement without GI distress, abd pain 2. Intake will ultimately be adequate to meet needs 3. Glycemic control will remain adequate (<200) 4. Pt will establish regular bowel pattern; no c /o diarrhea or constipation Result Diagrams: 12/10/18 06:35 12/10/18 06:35 Microbiology and Other Data: Microbiology 12/03/18 11:18 Aerobic Blood Culture - Preliminary Blood Venous No Growth Day 2 Anaerobic Blood Culture - Preliminary No Growth Day 2 12/03/18 11:00 Aerobic Blood Culture - Preliminary Blood Venous No Growth Day 2 Anaerobic Blood Culture - Preliminary No Growth Day 2 12/03/18 15:10 Nasal Screen MRSA (PCR) - Final Nasal Mrsa Not Detected Assess/Plan/Problems-Billing Assessment: - Patient Problems (1) Neutropenia Current Visit: Yes Status: Acute Code(s): D70.9 - NEUTROPENIA, UNSPECIFIED SNOMED Code(s): 629148293 Comment: - His WBC continue to trend down. no fever ANC 800 - He refused Iron infusion. Taking B12 PO - He does not require reverse isolation yet. He was seen with Hematology already. I will recheck CBC in am if it continues to decline that we may reconsult and ask for possible Bone marrow, check Infectious etiology including HIV, CMV, EBV etc... Will reassess in am - I am going to discontinue pepcid as there is few case of blood dyscrasia due to famotidine. (2) Chronic back pain Current Visit: Yes Status: Acute Code(s): M54.9 - DORSALGIA, UNSPECIFIED; G89.29 - OTHER CHRONIC PAIN SNOMED Code(s): 396137685 Comment: - On Fentanyl now and prn Dilaudid - I had long discussion with the patient regarding his pain management at home and he tells me he was managing without any pain meds. - I will reassess in am his response to fentanyl and I may discontinue his dilaudid (3) GERD (gastroesophageal reflux disease) Current Visit: Yes Status: Acute Code(s): K21.9 - GASTRO-ESOPHAGEAL REFLUX DISEASE WITHOUT ESOPHAGITIS SNOMED Code(s): 023947410 Comment: - Changed to pantoprazole po daily, D/c famotidine (4) Iron deficiency anemia Current Visit: Yes Status: Acute Code(s): D50.9 - IRON DEFICIENCY ANEMIA, UNSPECIFIED SNOMED Code(s): 38710834 Comment: - Continue PO Iron supplements, he refused Iron infusion - Continue Colace - Folate WNL but B12 is in lower limit of normal, On B12 injections - Hematological W/U does not suggest DIC and/or TTP - Dr Hernandez discussed case with Dr. Ray and as per his previous documentations "...given MCV is low unlikely due to blood dyscrasias; per Dr. Ray, presentation above not uncommon with patients with alcohol problems and may have caused some marrow suppression; however, pt strongly denies he has had any alcohol recently despite having elevated ROSE MARY on admission..." (5) Thrombocytopenia Current Visit: Yes Status: Acute Code(s): D69.6 - THROMBOCYTOPENIA, UNSPECIFIED SNOMED Code(s): 004464717 Comment: - Continue to decrease down to 57 - HP4-Abs test does NOT suggest HIT; off Arixtra today due to worsening thrombocytopenia close to 50K; if pts thrombocytopenia rebounds, may be placed back on heparin or LMWH products - I will discontinue ASA (6) Diabetes Current Visit: No Status: Acute Priority: High Onset Date: 06/14/14 Code (s): E11.9 - TYPE 2 DIABETES MELLITUS WITHOUT COMPLICATIONS SNOMED Code(s): 57629943 Comment: - A1c 17 -Improved control -DKA resolved -Continue current regimen -Continue ISS and increase lantus to 45 units -Pt mentions he has been non-compliant w/Insulin and his medications for over a year given he is sick and tired of doctors, and feel frustrated with system -- -social insurance analyst consult pending -Continue watchful waiting Status and Disposition: -For electrical lineworker consult -Refuses to be examined by PT; consider home w/services or possible STR if proves to be unsteady in gait -Concerns for possible pain seeking/malingering behavior by staff as well as suspicion of downplaying alcoholism, along with non-compliance with previous practitioners
[2018-12-11] MEDS: oxyCODONE TAB* 5 MG TAB PO PRN ×3 (00:24→08:40)
[2018-12-11] MEDS: HYDROmorphone INJ1* 1 MG/ML SYRINGE IV SLOW PU PRN ×3 (02:27→08:52)
[2018-12-11] MEDS: fentaNYL Patch Check Q Shift 1 NOTE SCH (07:08)
[2018-12-11 08:18] LABS: ABS Eosinophils 0.1 10^3/ul (0-0.6); ABS Lymphocytes 0.7 10^3/ul (1.0-4.8); ABS Monocytes 0.3 10^3/ul (0-0.8); ABS Neutrophils 1.1 10^3/ul (1.5-7.7); Eosinophil % 2.4 %; Hematocrit 31 % (42-52); Hemoglobin 9.7 g/dL (14.0-18.0); Lymphocyte % 31.9 %; Mean Corpuscular HGB Conc 31 g/dL (31-36); Mean Corpuscular Hemoglobin 24 pg (27-31); Mean Corpuscular Volume 76 fL (80-94); Mean Platelet Volume 9.6 fL (7.4-10.4); Nucleated Red Blood Cells % 0.1; Platelet Count 53 10^3/uL (150-450); Red Blood Count 4.11 10^6 /uL (4.18-5.48); Red Cell Distribution Width 19 % (10.5-15); White Blood Count 2.2 10^3/uL (3.5-10.8)
[2018-12-11 08:31] LABS: ALT 19 U/L (7-52); AST 13 U/L (13-39); Albumin 3.1 g/dL (3.2-5.2); Albumin/Globulin Ratio 1.3 (1-3); Alkaline Phosphatase 73 U/L (34-104); Amylase 25 U/L (29-103); Anion Gap 6 mmol/L (2-11); Blood Urea Nitrogen 31 mg/dL (6-24); CO2 Carbon Dioxide 19 mmol/L (22-32); Calcium 8.1 mg/dL (8.6-10.3); Chloride 110 mmol/L (101-111); EGFR African American 98.4 (>60); EGFR Non-African American 81.3 (>60); Globulin 2.4 g/dL (2-4); Glucose 264 mg/dL (70-100); Magnesium 1.8 mg/dL (1.9-2.7); Phosphorus 3.8 mg/dL (2.5-5.0); Potassium 4.1 mmol/L (3.5-5.0); Sodium 135 mmol/L (135-145); Total Protein 5.5 g/dL (6.4-8.9)
[2018-12-11] MEDS: PANCRELIPASE PO SCH ×2 (08:39→12:59)
[2018-12-11] MEDS: Hydrochlorothiazide TAB* 25 MG PO SCH (08:40)
[2018-12-11] MEDS: Tamsulosin CAP* 0.4 MG PO SCH (08:40)
[2018-12-11] MEDS: Pregabalin CAP(*) 100 MG PO SCH ×2 (08:41→14:35)
[2018-12-11] MEDS: Thiamine TAB* 100 MG TAB PO SCH (08:41)
[2018-12-11] MEDS: Ferrous Sulfate TAB* 325 MG PO SCH ×3 (08:41→08:45)
[2018-12-11] MEDS: Insulin LISPRO* 1 UNITS UNIT SUBCUT SCH ×4 (08:45→12:59)
[2018-12-11] MEDS: Cyanocobalamin INJ * 1,000 MCG/ML VIAL 1 ML VIAL IM SCH (08:51)
[2018-12-11] MEDS ORDERED: Pantoprazole TAB * 40 MG TAB PO SCH (09:00)
[2018-12-11] MEDS ORDERED: Insulin GLARGINE(*) 1 UNITS UNIT SUBCUT SCH (09:00)
--- NOTE | 2018-12-11 10:11 | PN ---
Progress Note - Progress Note Date of Service: 12/11/18 SOAP: Subjective: []Still abdominal pain. He is eating well. No bruising or bleeding. No fevers. He has refused IV iron, continues on oral iron, refused B12 yesterday. Today he is open to both B12 and IV iron. He reports he had bone marrow biopsy in [place] several months ago and it was "normal" but does not remember what hospital. Cyanocobalamin (Vitamin B12 Inj *) 1,000 mcg IM DAILY [facility] Stop: 12/14/18 09:01 Last Admin: 12/11/18 08:51 Dose: 1,000 mcg Dextrose (D50w Syringe 50 Ml*) 12.5 gm IV PUSH .FOR FS < 60 - SS PRN PRN Reason: FS < 60 Docusate Sodium (Colace Cap*) 100 mg PO DAILY PRN PRN Reason: CONSTIPATION Fentanyl (Duragesic Patch 25 Mcg/Hr*) 25 mcg TRANSDERM Q72H [facility] Last Admin: 12/10/18 16:28 Dose: 25 mcg Hydrochlorothiazide (Hydrodiuril Tab*) 25 mg PO DAILY [facility] Last Admin: 12/11/18 08:40 Dose: 25 mg Hydromorphone HCl (Dilaudid Inj1s*) 1 mg IV SLOW PU Q3H PRN PRN Reason: PAIN - BREAKTHROUGH Last Admin: 12/11/18 08:52 Dose: 1 mg Ferric Sodium Gluconate Complex 125 mg/ Sodium Chloride 110 mls @ 110 mls/hr IVPB Q48H [facility] Stop: 12/24/18 09:59 Last Admin: 12/10/18 08:40 Dose: Not Given Insulin Glargine (Lantus(*)) 45 units SUBCUT Q24HR [facility] Last Admin: 12/11/18 08:46 Dose: 45 units Insulin Human Lispro (Humalog*) 0 units SUBCUT ACHS [facility]; Protocol Last Admin: 12/11/18 08:45 Dose: 2 unit Insulin Human Lispro (Humalog*) 10 units SUBCUT AC [facility] Last Admin: 12/11/18 08:46 Dose: 10 units Ondansetron HCl (Zofran Inj*) 4 mg IV Q6H PRN PRN Reason: NAUSEA Last Admin: 12/05/18 21:26 Dose: 4 mg Oxycodone HCl (Roxycodone Tab*) 10 mg PO Q4H PRN PRN Reason: PAIN - SEVERE Last Admin: 12/11/18 08:40 Dose: 10 mg Oxycodone HCl (Roxycodone Tab*) 5 mg PO Q4H PRN PRN Reason: PAIN - MODERATE TO SEVERE Pancrelipase (Zenpep Delayed Cap*) 10,000 units PO TID WITH MEALS [facility] Last Admin: 12/11/18 08:39 Dose: 10,000 units Pantoprazole Sodium (Protonix Tab*) 40 mg PO DAILY [facility] Last Admin: 12/11/18 08:41 Dose: 40 mg Pharmacy Profile Note (Fentanyl Patch Check Q Shift) 1 note N/A 0700,1900 [facility] Last Admin: 12/11/18 07:08 Dose: 1 note Pregabalin (Lyrica Cap(*)) 200 mg PO TID [facility] Last Admin: 12/11/18 08:41 Dose: 200 mg Tamsulosin HCl (Flomax Cap*) 0.4 mg PO DAILY [facility] Last Admin: 12/11/18 08:40 Dose: 0.4 mg Thiamine HCl (Vitamin B-1 Tab*) 100 mg PO DAILY [facility] Last Admin: 12/11/18 08:41 Dose: 100 mg Objective: [] Vital Signs Temp Pulse Resp BP Pulse Ox 97.3 F 85 16 121/72 100 12/11/18 02:35 12/11/18 02:35 12/11/18 09:50 12/11/18 02:35 12/11/18 02:35 HEENT: OM moist, no lesions, no LAD CTA, decreased BS RRR S1S2 Abd tense and he only allowed limited exam, +BS EXt w/o edema Neuro AAOx3 but otherwise differed. MMA 1.6 (H) ANC 11 Plts 53 Hgb 9.7 Assessment: []63 year old with uncontrolled DM and chronic pancreatitis who presents with pancytopenia form Iron and B12 deficiency. Differential also includes anemia of chronic disease, marrow suppression from Alcohol intake. Etiology of nutritional deficiency is likely diet related but disorder of absorption cannot be ruled out. Cannot diagnose primary marrow failure until B12 replete. Plan: []1. Discussed need to take IV iron and IM B12 and as of today patient agreed - IV iron 125 mg x 8 days - B12 1000 mcg IM x 7 days 2. Send Celiac panel and consider EGD as outpatient. 3. Check Retic count and CBC tomorrow 4. DVT prophylaxis is reasonable starting tomorrow if plts start to trend up.
--- NOTE | 2018-12-11 11:43 | PN ---
Subjective Date of Service: 12/11/18 Interval History: Patient seen this morning he was in a good mood at the begnning of the interview , and he was in agreement with the plan of following lab to ensure his pancytopenia continues to improve, he was agreeable with the insulin regimen and he agreed for the iron infusion after he visited with Dr. Ray. However, as soon as I did start to explaining that I will be weaning off his Past Medical History: Unchanged from Admission Objective Active Medications: Cyanocobalamin (Vitamin B12 Inj *) 1,000 mcg IM DAILY [facility] Stop: 12/14/18 09:01 Last Admin: 12/11/18 08:51 Dose: 1,000 mcg Dextrose (D50w Syringe 50 Ml*) 12.5 gm IV PUSH .FOR FS < 60 - SS PRN PRN Reason: FS < 60 Docusate Sodium (Colace Cap*) 100 mg PO DAILY PRN PRN Reason: CONSTIPATION Fentanyl (Duragesic Patch 25 Mcg/Hr*) 25 mcg TRANSDERM Q72H [facility] Last Admin: 12/10/18 16:28 Dose: 25 mcg Hydrochlorothiazide (Hydrodiuril Tab*) 25 mg PO DAILY [facility] Last Admin: 12/11/18 08:40 Dose: 25 mg Ferric Sodium Gluconate Complex 125 mg/ Sodium Chloride 110 mls @ 110 mls/hr IVPB Q48H [facility] Stop: 12/24/18 09:59 Last Admin: 12/10/18 08:40 Dose: Not Given Insulin Glargine (Lantus(*)) 45 units SUBCUT Q24HR [facility] Last Admin: 12/11/18 08:46 Dose: 45 units Insulin Human Lispro (Humalog*) 0 units SUBCUT ACHS [facility]; Protocol Last Admin: 12/11/18 08:45 Dose: 2 unit Insulin Human Lispro (Humalog*) 10 units SUBCUT AC [facility] Last Admin: 12/11/18 08:46 Dose: 10 units Ondansetron HCl (Zofran Inj*) 4 mg IV Q6H PRN PRN Reason: NAUSEA Last Admin: 12/05/18 21:26 Dose: 4 mg Pancrelipase (Zenpep Delayed Cap*) 10,000 units PO TID WITH MEALS [facility] Last Admin: 12/11/18 08:39 Dose: 10,000 units Pantoprazole Sodium (Protonix Tab*) 40 mg PO DAILY [facility] Last Admin: 12/11/18 08:41 Dose: 40 mg Pharmacy Profile Note (Fentanyl Patch Check Q Shift) 1 note N/A 0700,1900 [facility] Last Admin: 12/11/18 07:08 Dose: 1 note Pregabalin (Lyrica Cap(*)) 200 mg PO TID [facility] Last Admin: 12/11/18 08:41 Dose: 200 mg Tamsulosin HCl (Flomax Cap*) 0.4 mg PO DAILY [facility] Last Admin: 12/11/18 08:40 Dose: 0.4 mg Thiamine HCl (Vitamin B-1 Tab*) 100 mg PO DAILY [facility] Last Admin: 12/11/18 08:41 Dose: 100 mg Vital Signs - 8 hr 12/11/18 12/11/18 12/11/18 04:45 04:47 05:41 Respiratory 16 16 18 Rate 12/11/18 12/11/18 12/11/18 07:09 07:10 08:40 Respiratory 16 16 18 Rate 12/11/18 12/11/18 12/11/18 08:41 08:52 09:50 Respiratory 18 16 16 Rate Oxygen Devices in Use Now: None Appearance: Awake, Alert no distress got agitated and frustrated. rest of the exam deferred Eyes: No Scleral Icterus, - - EOMI - Nutrition: Malnutrition Diagnosis/Plan Malnutrition Assessment by Registered Dietitian: Malnutrition Assessment Clinical Characteristics Chronic,Moderate Malnutrition Assessment: - 34% wt loss in past one year Criteria - mild to moderate fat and muscle loss per visual assessment (orbital, triceps) Malnutrition Assessment: 1. Glucerna Shakes B-L-D (220 kcals, 10 g prot/ Interventions serv) 2. cont thiamine/folate/MVI supplementation 3. consistent carb diet - reinforce basic concepts (ie: taking prescribed meds, regular meals, and controlled carb portions) 4. follow GI tolerance to meals and adequacy of po intake Malnutrition Assessment: Goals 1. Pt will tolerate diet advancement without GI distress, abd pain 2. Intake will ultimately be adequate to meet needs 3. Glycemic control will remain adequate (<200) 4. Pt will establish regular bowel pattern; no c /o diarrhea or constipation Result Diagrams: 12/11/18 07:45 12/11/18 07:45 Microbiology and Other Data: Microbiology 12/03/18 11:18 Aerobic Blood Culture - Preliminary Blood Venous No Growth Day 2 Anaerobic Blood Culture - Preliminary No Growth Day 2 12/03/18 11:00 Aerobic Blood Culture - Preliminary Blood Venous No Growth Day 2 Anaerobic Blood Culture - Preliminary No Growth Day 2 12/03/18 15:10 Nasal Screen MRSA (PCR) - Final Nasal Mrsa Not Detected Assess/Plan/Problems-Billing Assessment: - Patient Problems (1) Iron deficiency anemia Current Visit: Yes Status: Acute Code(s): D50.9 - IRON DEFICIENCY ANEMIA, UNSPECIFIED SNOMED Code(s): 91108471 Comment: -He agreed for the Iron infusion but after informing him that he will be taken off dilaudid he immediatly changed attitude and asked to be discharged. I spoke to Dr. Ray and he gave him appointment to follow up on 8:45 - On B12 injections - Hematological W/U does not suggest DIC and/or TTP - Dr Hernandez discussed case with Dr. Ray and as per his previous documentations "...given MCV is low unlikely due to blood dyscrasias; per Dr. Ray, presentation above not uncommon with patients with alcohol problems and may have caused some marrow suppression; however, pt strongly denies he has had any alcohol recently despite having elevated ROSE MARY on admission..." (2) Neutropenia Current Visit: Yes Status: Acute Code(s): D70.9 - NEUTROPENIA, UNSPECIFIED SNOMED Code(s): 806308413 Comment: - His WBC improved today. He agreed for the Iron infusion but after informing him that he will be taken off dilaudid he immediatly changed attitude and asked to be discharged. I spoke to Dr. Ray and he gave him appointment to follow up on 8:45 (3) Chronic back pain Current Visit: Yes Status: Acute Code(s): M54.9 - DORSALGIA, UNSPECIFIED; G89.29 - OTHER CHRONIC PAIN SNOMED Code(s): 911624444 Comment: - On Fentanyl now and prn Dilaudid - I had long discussion with the patient regarding his pain management at home and he tells me he was managing without any pain meds. - I did reassess today and discussed with Dr. Acevedo and recommended just fentanyl 50 mcg q72hrs and agreed with taking him off dilaudid and oxycodone. I will set appointment with Dr. Wu for next week. (4) GERD (gastroesophageal reflux disease) Current Visit: Yes Status: Acute Code(s): K21.9 - GASTRO-ESOPHAGEAL REFLUX DISEASE WITHOUT ESOPHAGITIS SNOMED Code(s): 485692360 Comment: - Changed to pantoprazole po daily, D/c famotidine (5) Thrombocytopenia Current Visit: Yes Status: Acute Code(s): D69.6 - THROMBOCYTOPENIA, UNSPECIFIED SNOMED Code(s): 512095427 Comment: - Continue to decrease down to 53 - HP4-Abs test does NOT suggest HIT; off Arixtra today due to worsening thrombocytopenia close to 50K; if pts thrombocytopenia rebounds, may be placed back on heparin or LMWH products - I will discontinue ASA He agreed for the Iron infusion but after informing him that he will be taken off dilaudid he immediatly changed attitude and asked to be discharged. I spoke to Dr. Ray and he gave him appointment to follow up on 8:45 (6) Diabetes Current Visit: No Status: Acute Priority: High Onset Date: 06/14/14 Code (s): E11.9 - TYPE 2 DIABETES MELLITUS WITHOUT COMPLICATIONS SNOMED Code(s): 46124528 Comment: - A1c 17 -Improved control -DKA resolved -Continue current regimen -Continue ISS and increase lantus to 45 units. Will discharge home today. Awating PCP to be arranged -Pt mentions he has been non-compliant w/Insulin and his medications for over a year given he is sick and tired of doctors, and feel frustrated with system -- -director social service consult pending -Continue watchful waiting (7) DVT prophylaxis Current Visit: Yes Status: Acute Code(s): Z29.9 - ENCOUNTER FOR PROPHYLACTIC MEASURES, UNSPECIFIED SNOMED Code(s): 939897474 Comment: -Continue w/SCDs Status and Disposition: -For mission worker consult -Refuses to be examined by PT; consider home w/services or possible STR if proves to be unsteady in gait -Concerns for possible pain seeking/malingering behavior by staff as well as suspicion of downplaying alcoholism, along with non-compliance with previous practitioners
[2018-12-11 12:24] VITALS: BP 138/66
[2018-12-11] MEDS ORDERED: Ferric Gluconate IV 25 MG in NS 0.9% 50 ML TEST DOSE IVPB ONE (13:00)
[2018-12-11] MEDS ORDERED: Ferric Gluconate IV* 125 MG in NS 0.9% 100 ML* 100 ML IVPB ONE (14:00)
--- NOTE | 2018-12-11 23:23 | DS ---
CC: Dr. Paul Ray; Dr. Acevedo from Pain Management; [facility] DISCHARGE SUMMARY: DATE OF ADMISSION: 12/03/18 DATE OF DISCHARGE: 12/11/18 FINAL DISCHARGE DIAGNOSES: 1. Diabetic ketoacidosis. 2. Diabetes mellitus, uncontrolled, poorly compliant. 3. Iron deficiency anemia. 4. Neutropenia. 5. Thrombocytopenia. 6. Chronic back pain and neuropathy. 7. Gastroesophageal reflux disease. HOSPITAL COURSE: The patient presented to [facility] on 12/03/18 for a change in speech a nd confusion, brought to the emergency room by his brother, who was noted to have high blood sugar at home and they called EMS and when they arrived, he was found to be confused, tachycardic. He was ge tting combative and agitated in the ER. He required Ativan. Then, he became less combative after th e Ativan in the emergency room. The patient states that he has been urinating frequently, increased thirst, increased p.o. intake or water, nausea, vomiting, abdominal pain, back pain and has not been taking his medications. He was given IV fluids resuscitation in the ER. He was admitted to the ICU for metabolic and toxic encephalopathy with DKA, alcohol intoxication, lactic acidosis. He was start ed on IV fluids, banana bag, electrolyte replacement, insulin drip, and over the course of the follow ing days, the patient was maintained on the hospitalist service and he was complaining of ongoing lorena n. He was consulted by Dr. Acevedo for pain management and was recommended to place him on fentanyl and discontinue his IV Dilaudid and oxycodone. That was on 12/07/18. His DKA has resolved and he h as been taking insulin and he has been requesting special diet, which is high carb and the patient co ntinued to have 2 bagels at a time, witnessed by me, although he denies it. When we questioned about his alcohol, he denies that he drinks, although he was positive for alcohol. I saw him, mariano garzaer on 12/10/18, which I did express to the patient that we will probably review his hospital cour se and reassess him on the following day, which was today and based on my assessment, I deemed the pa ly that does not need intravenous morphine or Dilaudid; therefore, I approached him about disconti nuation of Dilaudid and morphine and oxycodone. Therefore, he became very agitated and did not want to stay and he asked to be discharged. Therefore, the patient will be released with the outpatient shamika merino for his following ongoing concern. For his iron deficiency anemia, the patient initially dec lined iron infusion on 12/10/18 as he does not want to miss bathroom breaks, thinking that it was goi ng to take 8 hours. Following day, Dr. Ray was able to speak with the patient. He agreed to be rece iving iron infusion; however, he declined staying and he wanted to be released right after his iron i nfusion. I spoke with Dr. Ray and he agreed to see him on Friday 8:45 for further treatment. For his neutropenia, it was coming down, continued to decline. His white count was up to over 2000 t bar, up from 800. He will continue the B12 shot and the multivitamin; however, he did not want to s robert. I then transitioned him to oral B12 and followup with Dr. Ray as scheduled on 8:45 on . For his chronic pain, I took him off the p.r.n. Dilaudid and oxycodone. I gave him fentanyl 50 mcg p atch prescribed to Lizzie. Dr. Acevedo who came in [facility] and he is to see him next week as an outpatient. For his GERD, change to pantoprazole daily. For his thrombocytopenia, I discontinued his aspirin, encouraged him to continue his multivitamin. H is platelets are still low in the 50,000, which probably adal from his alcohol-induced thrombocytopen ia and he is to follow with Dr. Ray on Friday, 8:45. For his diabetes, his A1c was 17, the patient has been in denial. His DKA resolved. I gave him pres cription for Lantus 45 units with a sliding scale and I gave him a new prescription for the blood sug ar monitor test strip and lancet. With the above mentioned, he is deemed stable for discharge as long as he maintains his followup keaton mmendations as below. FOLLOWUP RECOMMENDATION: 1. Follow up with Dr. Ray on Friday. 2. Follow up with the primary care which will be set up to our facility. He will be contacted on for a new PCP. He is no longer patient of Dr. Fortino Hidalgo. 3. Follow up with Dr. Acevedo next week. DISCHARGE MEDICATIONS: He was discharged on: 1. B12 1000 mcg daily. 2. Colace 100 mg b.i.d. 3. Fentanyl 50 mcg. 4. Hydrochlorothiazide 25 daily. 5. Insulin 45 units daily. 6. Insulin sliding scale 10 units before meal. 7. Pancrelipase 12,000 units t.i.d. 8. Protonix 40 daily. 9. Lyrica 75 t.i.d. for 1 week, 21 pills. 10. Tamsulosin 0.4 daily. 11. Thiamine 100 mg daily. DISCHARGE DISPOSITION: Home. DISCHARGE CONDITION: Stable. [id number]/[facility] #: [id number]
== END 2018-12-11 17:15 | disposition home or self-care (01) | DRG 420 ==
LOC: ED 10:21 → ICU 14:01 → MED 12-04 12:22
PROVIDERS: ADMIT Internal Medicine Critical Care Medicine; ATTEND Internal Medicine
DX: E11.10 Type 2 diabetes mellitus with ketoacidosis without coma (principal); G93.41 Metabolic encephalopathy; K86.1 Other chronic pancreatitis; N17.9 Acute kidney failure, unspecified; E44.0 Moderate protein-calorie malnutrition; F10.129 Alcohol abuse with intoxication, unspecified; E11.65 Type 2 diabetes mellitus with hyperglycemia; E11.40 Type 2 diabetes mellitus with diabetic neuropathy, unspecified; I25.10 Atherosclerotic heart disease of native coronary artery without angina pectoris; E78.00 Pure hypercholesterolemia, unspecified; K21.9 Gastro-esophageal reflux disease without esophagitis; F41.9 Anxiety disorder, unspecified; F32.9 Major depressive disorder, single episode, unspecified; R40.2362 Coma scale, best motor response, obeys commands, at arrival to emergency department; R40.2142 Coma scale, eyes open, spontaneous, at arrival to emergency department; R40.2242 Coma scale, best verbal response, confused conversation, at arrival to emergency department; G89.29 Other chronic pain; M54.9 Dorsalgia, unspecified; S00.03XA Contusion of scalp, initial encounter; W22.8XXA Striking against or struck by other objects, initial encounter; I10 Essential (primary) hypertension; E87.6 Hypokalemia; E83.42 Hypomagnesemia; D50.9 Iron deficiency anemia, unspecified; D69.6 Thrombocytopenia, unspecified; D70.9 Neutropenia, unspecified; E53.8 Deficiency of other specified B group vitamins; N40.0 Benign prostatic hyperplasia without lower urinary tract symptoms; Y90.7 Blood alcohol level of 200-239 mg/100 ml; E78.5 Hyperlipidemia, unspecified; I25.2 Old myocardial infarction; Z88.8 Allergy status to other drugs, medicaments and biological substances; Z91.14 Patient's other noncompliance with medication regimen; Z95.5 Presence of coronary angioplasty implant and graft; Z91.041 Radiographic dye allergy status; Z82.49 Family history of ischemic heart disease and other diseases of the circulatory system; Z87.891 Personal history of nicotine dependence; Y92.009 Unspecified place in unspecified non-institutional (private) residence as the place of occurrence of the external cause; Z79.4 Long term (current) use of insulin; Z68.21 Body mass index [BMI] 21.0-21.9, adult
CPT/HCPCS: 36415; 70450; 71045; 74018; 74019; 74176; 76770; 80048; 80053; 80061; 80076; 80307; 80320; 81003; 81015; 82140; 82150; 82550; 82570; 82607; 82728; 82746; 82803; 82947; 83010; 83036; 83540; 83550; 83605; 83615; 83690; 83735; 83880; 83921; 83930; 83935; 84100; 84155; 84165; 84300; 84484; 84540; 85025; 85027; 85045; 85060; 85379; 85384; 85610; 85652; 85730; 86022; 86140; 87040; 87086; 87641; 93005; 99223; 99232; 99285; A9270-GY; G0480; J1170; J1650; J1815; J2060; J2270; J2405; J2916; J3411; J3420; J3475; J3480

== ENCOUNTER 2018-12-16 19:04 | Inpatient (IN) | payer OTHER ==
[2018-12-16] MEDS ORDERED: NS 0.9% 1000 ML** 2,000 ML IV ONE (19:54)
[2018-12-16] MEDS ORDERED: NS 0.9% 1000 ML** 1,000 ML IV SCH ×2 (20:00→22:45)
--- NOTE | 2018-12-16 20:02 | ED ---
HPI Diabetic - HPI Summary HPI Summary: Pt is a 63 y/o M presenting to the ED with a chief complaint of a diabetic issue. The pts brother states that he has not had some of his medication in a couple of days, including his pain medication and his insulin, and his mental status is now altered. He also reports that the pt has polydipsia and polyuria, and his blood sugar at home was 452. The pt himself reports pain in his abd and back. - History Of Current Complaint Chief Complaint: EDDiabeticProb Time Seen by Provider: 12/16/18 19:41 Hx Obtained From: Patient, Family/Burlesque Dancer - brother Last Known Well Date: 12/11/18 Onset/Duration: Lasting Days, Still Present Timing: Days Severity Initially: Severe Severity Currently: Severe Character: Alert, Confused Aggravating: Medication Change Alleviating: Nothing Associated Signs & Symptoms: Abdominal Pain, Polydipsia, Polyuria Related History: Hx of DKA, Insulin Requiring - Allergies/Home Medications Allergies/Adverse Reactions: Allergies Allergy/AdvReac Type Severity Reaction Status Date / Time acetaminophen Allergy Abdominal Verified 12/16/18 19:13 Pain Adhesive Tape Allergy Rash Verified 12/16/18 19:13 aspirin Allergy Bleeding Verified 12/16/18 19:13 atorvastatin Allergy Bleeding Verified 12/16/18 19:13 Bleach (Sodium Hypochlorite) Allergy Rash And Verified 12/16/18 19:13 Itching iodine Allergy Rash Verified 12/16/18 19:13 naproxen Allergy Abdominal Verified 12/16/18 19:13 Pain PMH/Surg Hx/FS Hx/Imm Hx Previously Healthy: No Endocrine/Hematology History: Reports: Hx Diabetes - noncompliant with insulin, episodes of DKA, Other Endocrine/Hematological Disorders - PANCYTOPENIA Cardiovascular History: Reports: Hx Angina, Hx Coronary Artery Disease, Hx Hypercholesterolemia, Hx Hypertension, Hx Myocardial Infarction - 2009 Denies: Hx Aneurysm, Hx Congenital Heart Disease, Hx Deep Vein Thrombosis, Other Cardiovascular Problems/Disorders Respiratory History: Reports: Hx Pneumonia GI History: Reports: Hx Gastroesophageal Reflux Disease, Other GI Disorders - PANCREATITIS, GERD History: Reports: Hx Benign Prostatic Hyperplasia, Hx Kidney Stones, Other Problems/Disorders - some pain when urinating Denies: Hx Renal Disease Musculoskeletal History: Reports: Hx Back Problems - chronic pain Sensory History: Reports: Hx Contacts or Glasses Denies: Hx Hearing Aid Opthamlomology History: Reports: Hx Contacts or Glasses Neurological History: Reports: Hx Headaches Psychiatric History: Reports: Hx Anxiety, Hx Depression - Surgical History Surgery Procedure, Year, and Place: cardiac stents Infectious Disease History: No Infectious Disease History: Denies: Hx Clostridium Difficile, Hx Hepatitis, Hx Human Immunodeficiency Virus (HIV), Traveled Outside the [place] in Last 30 Days - Family History Known Family History: Positive: Hypertension Negative: Blood Disorder Family History: mother: aortic valve replacement - Social History Alcohol Use: None - No longer - not in 20 years, per brother Hx Substance Use: No Substance Use Type: Reports: None, Other - prescription Hx Tobacco Use: Yes Smoking Status (MU): Former Smoker Type: Cigarettes Have You Smoked in the Last Year: No Review of Systems Positive: Other - polydipsia Positive: Abdominal Pain Positive: urgency, other - polyuria Positive: Myalgia - back pain Positive: Other - AMS All Other Systems Reviewed And Are Negative: Yes Physical Exam - Summary Physical Exam Summary: Appearance:mild distress Skin: warm, dry, reflects adequate perfusion Head/face: normal Eyes: EOMI, ETTA ENT: dry mucous membranes Neck: supple, non-tender Respiratory: CTA, breath sounds present Cardiovascular: RRR, pulses symmetrical Abdomen: diffuse abd tenderness Musculoskeletal: pulse b/l Neuro:A&Ox3 Triage Information Reviewed: Yes Vital Signs On Initial Exam: Initial Vitals Temp Pulse Resp BP Pulse Ox 97.3 F 121 18 127/104 96 12/16/18 19:07 12/16/18 19:07 12/16/18 19:07 12/16/18 19:07 12/16/18 19:07 Vital Signs Reviewed: Yes Diagnostics - Vital Signs Vital Signs Temp Pulse Resp BP Pulse Ox 12/16/18 19:07 97.3 F 121 18 127/104 96 - Laboratory Result Diagrams: 12/16/18 10:39 12/16/18 10:39 Lab Statement: Any lab studies that have been ordered have been reviewed, and results considered in the medical decision making process. - Radiology CXR Radiology Interpretation Completed By: Radiologist Summary of Radiographic Findings: No acute infiltrate. ED physician has reviewed this report. - EKG 1956 Cardiac Rate: Tachycardia - 109bpm EKG Rhythm: Sinus Tachycardia ST Segment: Normal Ectopy: None Summary of EKG Findings: EKG at 1956 shows sinus tachycardia at 109bpm with no STEMI. Diabetic Course/Dx - Course Course Of Treatment: Pt is a 63 y/o M presenting to the ED with his brother for a diabetic issue. The pt's brother reports insulin non-compliance for the past few days d/t an insurance issue, and the pt is now AMS. The pt's brother also reports the pt having polydipsia and polyuria, and a blood sugar at home of 452. Pt himself reports abd pain and back pain. On exam, the pt has dry mucous membranes and diffuse abd tenderness. EKG at 1956 shows sinus tachycardia at 109bpm with no STEMI. CXR shows no acute infiltrate, pending official radiology report. Brain CT shows: 1. No acute intracranial abnormality. 2. Age-related atrophy and mild chronic small vessel ischemic disease. 3. Chronic paranasal sinusitis. The pt will be admitted to [facility] [place] [place] with a dx of DKA, under Dr. Hidalgo. He is stable and agreeable with this plan. - Diagnoses Differential Dx: Diabetic Ketoacidosis, Hyperglycemia, Hyperosmolar State, Sepsis Provider Diagnoses: DKA (diabetic ketoacidoses) - Critical Care Time Critical Care Time: 30-74 min - 30min Discharge - Sign-Out/Discharge Documenting (check all that apply): Patient Departure - Discharge Plan Condition: Stable Disposition: ADMITTED TO [facility] Referrals: [facility] [Outside] - Billing Disposition and Condition Condition: STABLE Disposition: Admitted to [facility] - Attestation Statements Document Initiated by Gloria: Yes Documenting Scribe: Liliane Godoy Provider For Whom Gloria is Documenting (Include Credential): Sameer Garner MD. Scribe Attestation: Liliane Brooke, scribed for Sameer Garner MD. on 12/16/18 at 2109. Scribe Documentation Reviewed: Yes Provider Attestation: The documentation as recorded by the Liliane gonzalez accurately reflects the service I personally performed and the decisions made by , Sameer Garner MD. Status of Scribe Document: Viewed
[2018-12-16 20:04] LABS: ABS Basophils 0.2 10^3/ul (0-0.2); ABS Lymphocytes 1.9 10^3/ul (1.0-4.8); ABS Monocytes 0.2 10^3/ul (0-0.8); ABS Neutrophils 4.6 10^3/ul (1.5-7.7); Eosinophil % 0.3 %; Hematocrit 42 % (42-52); Hemoglobin 13.1 g/dL (14.0-18.0); Lymphocyte % 27.6 %; Mean Corpuscular HGB Conc 31 g/dL (31-36); Mean Corpuscular Hemoglobin 24 pg (27-31); Mean Corpuscular Volume 76 fL (80-94); Mean Platelet Volume 7.5 fL (7.4-10.4); Nucleated Red Blood Cells % 0.1; Platelet Count 291 10^3/uL (150-450); Red Blood Count 5.46 10^6 /uL (4.18-5.48); Red Cell Distribution Width 23 % (10.5-15); White Blood Count 6.9 10^3/uL (3.5-10.8)
[2018-12-16 20:10] LABS: Activated Partial Thrombo Time 32.1 seconds (26.0-38.0); INR 1.11 (0.82-1.09)
[2018-12-16 20:16] LABS: Troponin I 0.01 ng/mL (<0.04)
[2018-12-16 20:18] LABS: ALT 30 U/L (7-52); AST 40 U/L (13-39); Albumin/Globulin Ratio 1.3 (1-3); Alkaline Phosphatase 110 U/L (34-104); BUN/Creatinine Ratio 11.6 (8-20); Blood Urea Nitrogen 11 mg/dL (6-24); C Reactive Protein < 1.00 mg/L (<8.01); Calcium 8.2 mg/dL (8.6-10.3); Chloride 103 mmol/L (101-111); EGFR African American 97.2 (>60); EGFR Non-African American 80.3 (>60); Globulin 3.1 g/dL (2-4); Magnesium 1.9 mg/dL (1.9-2.7); Potassium 4.3 mmol/L (3.5-5.0); Sodium 141 mmol/L (135-145); Total Protein 7.1 g/dL (6.4-8.9)
[2018-12-16 20:22] LABS: Anion Gap 25 mmol/L (2-11); CO2 Carbon Dioxide 13 mmol/L (22-32); Glucose 556 mg/dL (70-100)
[2018-12-16] MEDS ORDERED: Insulin REGULAR(*) 1 UNITS UNIT IV PUSH ONE (20:24)
[2018-12-16] MEDS ORDERED: Insulin IVPB 100 units/100 ml 100 UNITS/100 ML UNIT IVPB ONE (20:25)
[2018-12-16] MEDS ORDERED: Morphine 4 MG/ML VIAL (1 ml) 4 MG/ML VIAL IV ONE (20:26)
[2018-12-16 20:29] LABS: Alcohol 333 mg/dL (<10)
[2018-12-16] MEDS ORDERED: Insulin IVPB 100 units/100 ml 100 UNITS/100 ML UNIT IVPB SCH (22:00)
[2018-12-16 22:42] LABS: BUN/Creatinine Ratio 10.3 (8-20); Calcium 7.8 mg/dL (8.6-10.3); EGFR African American 107.6 (>60); EGFR Non-African American 88.9 (>60); Potassium 4.4 mmol/L (3.5-5.0)
[2018-12-16] MEDS: Enoxaparin(*) 40 MG/0.4 ML SYR SUBCUT SCH (23:01)
[2018-12-16] MEDS ORDERED: Docusate CAP* 100 MG PO PRN (23:26)
--- NOTE | 2018-12-16 23:37 | HP ---
History of Present Illness - History of Present Illness Reason for Visit: high sugars History of Present Illness: PCP: None HPI: Patient is 63 year old man with type 2 diabetes, chronic pain, who was just discharged from this hospital 12/12, after admission for DKA. During that hospital stay he was seen by Dr. Kristina campos chronic pain, and seen by Dr. Flor campos pancytopenia. He had one iron infusion, and was discharged on fentanyl patches, Lantus insulin, pancreatic enzymes, and several other medications. He states his insurance would not pay for fentanyl patches or insulin. He is a poor historian, really is unclear on what medications he is taking. He states he has been without insulin for 1 year, and has been modulating his diabetes with diet. He was brought to ER today after his brother found him confused. This was the same presentation as on last admission 12/03. The patient denies alcohol intake even with confronted with today's blood alcohol level. - Past Medical History Cardiac: CAD, HTN Gastrointestinal: GERD, Other - chronic pancreatitis w/ pain Heme/Onc: Iron deficiency anemia Hepatobiliary: Other - chronic pancreatitis Musculoskeletal: Chronic low back pain Renal/: Benign prostatic enlarg. Endocrine: Diabetes - type 2 Dermatology: Other - seborrheic dermatitis - Past Surgical History Past Surgical History: None - Past Social History Lives: Alone - brother is nearby Review of Systems - Measurements Intake and Output: Intake and Output Last 24 Hours 12/14/18 12/15/18 12/16/18 12/17/18 06:59 06:59 06:59 06:59 Weight 58.967 kg - Review of Systems Constitutional Symptoms: Positive: Weight Loss Dermatology: Positive: Rash - kay derm on face HEENT: Positive: Normal Eyes: Positive: Normal Thyroid: Positive: Normal Pulmonary: Positive: Normal Cardiology: Positive: Normal Gastroenterology: Positive: Abdominal Pain Negative: Nausea, Vomiting, Diarrhea Genital - Urinary: Positive: Polyuria Genitourinary - Male: Positive: Prostatism Musculoskeletal: Positive: Low Back Pain Endocrinology: Positive: Diabetes Mellitus Objective Active Medications: Patient unclear whether taking any of these, states "insurance won't pay" Ambulatory Orders Docusate CAP* [Colace Cap*] 100 mg PO BID PRN 02/09/14 Aspirin EC TAB* [Ecotrin EC Low Dose 81 MG*] 81 mg PO DAILY 12/03/18 Cyanocobalamin (Vitamin B-12) [B-12] 1,000 mcg PO DAILY 30 Days #30 tablet Docusate CAP* [Colace Cap*] 100 mg PO DAILY PRN cap 12/11/18 Hydrochlorothiazide TAB* [Hydrodiuril TAB*] 25 mg PO DAILY 30 Days #30 tab Insulin GLARGINE(*) [Lantus(*)] 45 units SUBCUT Q24HR 30 Days #3 pkt 12/11/18 Insulin LISPRO* [HumaLOG*] 10 units SUBCUT AC 30 Days #5 pkt 12/11/18 Pancrelipase (NF) [Creon (NF)] 12,000 units PO TID WITH MEALS 30 Days #90 cap. 12/11/18 Pantoprazole TAB * [Protonix TAB*] 40 mg PO DAILY 30 Days #30 tab 12/11/18 Pregabalin CAP(*) [Lyrica CAP(*)] 75 mg PO TID 7 Days #21 cap MDD 3 12/11/18 Tamsulosin CAP* [Flomax CAP*] 0.4 mg PO DAILY 30 Days #30 cap 12/11/18 Thiamine TAB* [Vitamin B-1 TAB 100 MG*] 100 mg PO DAILY tab 12/11/18 fentaNYL [Fentanyl] 50 mcg TD Q72H 6 Days #2 patch.td72 MDD 1 12/11/18 Vital Signs - 8 hr 12/16/18 12/16/18 12/16/18 19:07 19:57 20:00 Temperature 36.3 C Pulse Rate 121 111 108 Respiratory 18 19 19 Rate Blood Pressure 127/104 (mmHg) O2 Sat by Pulse 96 94 98 Oximetry 12/16/18 12/16/18 12/16/18 20:05 20:37 20:48 Temperature Pulse Rate 101 Respiratory 13 18 Rate Blood Pressure 163/100 149/99 (mmHg) O2 Sat by Pulse 97 Oximetry 12/16/18 12/16/18 12/16/18 21:00 21:05 21:35 Temperature Pulse Rate 110 103 98 Respiratory 11 13 14 Rate Blood Pressure 140/96 155/100 (mmHg) O2 Sat by Pulse 97 99 98 Oximetry 12/16/18 12/16/18 12/16/18 21:45 22:00 22:11 Temperature 36.6 C 36.8 C Pulse Rate 101 93 Respiratory 18 13 11 Rate Blood Pressure 139/71 154/100 (mmHg) O2 Sat by Pulse 96 98 Oximetry 12/16/18 12/16/18 12/16/18 22:13 22:15 22:32 Temperature Pulse Rate 107 98 107 Respiratory 24 14 19 Rate Blood Pressure 163/100 154/100 144/92 (mmHg) O2 Sat by Pulse 99 98 99 Oximetry 12/16/18 12/16/18 12/16/18 22:48 23:00 23:16 Temperature Pulse Rate 95 98 101 Respiratory 17 12 13 Rate Blood Pressure 160/146 150/100 124/93 (mmHg) O2 Sat by Pulse 97 98 97 Oximetry Oxygen Devices in Use Now: None Appearance: awake and alert Eyes: No Scleral Icterus Ears/Nose/Mouth/Throat: NL Teeth, Lips, Gums Neck: NL Appearance and Movements; NL JVP, Trachea Midline Respiratory: Clear to Auscultation Cardiovascular: NL Sounds; No Murmurs; No JVD, No Edema, - - tachy, regular Abdominal: No Hepatosplenomegaly, - - tender, LUQ, no masses, +BS Lymphatic: No Cervical Adenopathy Extremities: No Edema Skin: No Rash or Ulcers Neurological: Alert and Oriented x 3 Lines/Tubes/Other Access: Clean, Dry and Intact Peripheral IV Nutrition: Taking PO's Result Diagrams: 12/16/18 19:39 12/17/18 05:19 Additional Lab and Data: Laboratory Tests 12/16/18 12/16/18 12/16/18 19:39 19:39 19:39 INR (Anticoag Therapy) 1.11 H APTT 32.1 VBG pH VBG pCO2 VBG pO2 VBG HCO3 Anion Gap 25 H Glucose 556 H* Lactic Acid 13.7 H* Calcium 8.2 L Magnesium 1.9 Troponin I 0.01 C-Reactive Protein < 1.00 Serum Alcohol 333 H 12/16/18 12/16/18 19:39 22:00 INR (Anticoag Therapy) APTT VBG pH 7.21 L VBG pCO2 20 L VBG pO2 87.0 H VBG HCO3 11.0 L Anion Gap 18 H Glucose 404 H Lactic Acid Calcium Magnesium Troponin I C-Reactive Protein Serum Alcohol Assess/Plan/Problems-Billing Assessment: - Patient Problems (1) DKA (diabetic ketoacidoses) Current Visit: Yes Status: Acute Priority: High Code(s): E11.10 - TYPE 2 DIABETES MELLITUS WITH KETOACIDOSIS WITHOUT COMA SNOMED Code(s): 075474906 Comment: -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 -Precipitating factor appears mainly lack of access to insulin -Will need to connect with endocrinology and primary care (2) Alcohol intoxication delirium Current Visit: No Status: Acute Priority: Medium Code(s): F10.121 - ALCOHOL ABUSE WITH INTOXICATION DELIRIUM SNOMED Code(s): 75670539 (3) Lactic acid acidosis Current Visit: Yes Status: Acute Priority: High Code(s): E87.2 - ACIDOSIS SNOMED Code(s): 56342281 Comment: -No clear signs of infection seen -He has presented with same syndrome in past, due to combination of DKA and alcohol intake. -Will hydrate and follow levels. Apparently not taking metformin. (4) DVT prophylaxis Current Visit: No Status: Acute Priority: Low Code(s): Z29.9 - ENCOUNTER FOR PROPHYLACTIC MEASURES, UNSPECIFIED SNOMED Code(s): 984960002 Comment: -lovenox ordered Status and Disposition: intensive care for insulin drip monitoring
[2018-12-16] MEDS ORDERED: Acetaminophen TAB* 325 MG PO PRN (23:40)
[2018-12-16] MEDS ORDERED: LORazepam INJ* 2 MG/ML 1 ML VIAL IM SCH (23:45)
[2018-12-16] MEDS ORDERED: Lorazepam PYXIS KEY PRN (23:57)
[2018-12-17] MEDS: LORazepam INJ* 2 MG/ML 1 ML VIAL IV SCH ×3 (00:14→16:30)
[2018-12-17] MEDS: Morphine 4 MG/ML VIAL (1 ml) 4 MG/ML VIAL IV PRN ×5 (00:15→23:14)
[2018-12-17] MEDS ORDERED: D5NS 0.9% 1000 ML BAG* 1,000 ML IV SCH (02:00)
[2018-12-17] MEDS: LORazepam INJ* 2 MG/ML 1 ML VIAL IV PUSH SCH ×4 (02:10→09:31)
[2018-12-17] MEDS: NS 0.9% 1000 ML** 1,000 ML IV SCH (03:46)
[2018-12-17] MEDS ORDERED: D10W 1000 ML BAG* 1,000 ML IV SCH (04:00)
[2018-12-17 05:44] LABS: BUN/Creatinine Ratio 10.4 (8-20); Blood Urea Nitrogen 7 mg/dL (6-24); CO2 Carbon Dioxide 17 mmol/L (22-32); Calcium 7.2 mg/dL (8.6-10.3); EGFR African American 145.4 (>60); EGFR Non-African American 120.2 (>60); Glucose 158 mg/dL (70-100); Potassium 3.9 mmol/L (3.5-5.0); Sodium 141 mmol/L (135-145)
[2018-12-17 05:50] LABS: Alcohol < 10 mg/dL (<10)
[2018-12-17 05:52] LABS: Anion Gap 10 mmol/L (2-11); Chloride 114 mmol/L (101-111)
[2018-12-17] MEDS ORDERED: Dextrose 50% Syringe 50 ML* 25 GM/50 ML SYRINGE IV PUSH PRN (06:27)
[2018-12-17] MEDS: Insulin LISPRO* 1 UNITS UNIT SUBCUT SCH ×4 (07:35→22:21)
[2018-12-17] MEDS: Insulin GLARGINE(*) 1 UNITS UNIT SUBCUT SCH ×2 (07:36→23:43)
[2018-12-17] MEDS ORDERED: Pancrelipase (NF) 12,000 UNITS CAP.DR PO SCH (08:00)
[2018-12-17] MEDS ORDERED: Thiamine TAB* 100 MG TAB PO SCH (09:00)
--- NOTE | 2018-12-17 09:07 | PN ---
Subjective Date of Service: 12/17/18 Interval History: HOSPITALIST PROGRESS NOTE Patient seen and examined at bedside. Case reviewed and d/w Tracy Jordan RN. He c/o abdominal pain, unchanged from his baseline. Denies N/V. States his insurance did not cover insulin, so he has not taken any since discharge. States his last alcoholic drink was "years ago", but he took "a couple swigs of cough syrup" before coming to the hospital yesterday. Family History: Unchanged from Admission Social History: Unchanged from Admission Past Medical History: Unchanged from Admission Objective Active Medications: Acetaminophen (Tylenol Tab*) 650 mg PO Q4H PRN PRN Reason: PAIN Last Admin: 12/17/18 03:29 Dose: 650 mg Cyanocobalamin (Vitamin B12 Tab*) 1,000 mcg PO DAILY [facility] Dextrose (D50w Syringe 50 Ml*) 12.5 gm IV PUSH .FOR FS < 60 - SS PRN PRN Reason: FS < 60 Docusate Sodium (Colace Cap*) 100 mg PO BID PRN PRN Reason: CONSTIPATION Enoxaparin Sodium (Lovenox(*)) 40 mg SUBCUT Q24H [facility] Last Admin: 12/16/18 23:01 Dose: 40 mg Fentanyl (Duragesic Patch 50 Mcg/Hr*) 50 mcg TRANSDERM Q72H [facility] Folic Acid (Folvite Tab*) 1 mg PO DAILY [facility] Sodium Chloride (Ns 0.9% 1000 Ml) 1,000 mls @ 75 mls/hr IV PER RATE [facility] Last Admin: 12/17/18 03:46 Dose: 75 mls/hr Insulin Glargine (Lantus(*)) 45 units SUBCUT Q24HR [facility] Last Admin: 12/17/18 07:36 Dose: 45 unit Insulin Human Lispro (Humalog*) 0 units SUBCUT ACHS [facility]; Protocol Last Admin: 12/17/18 07:35 Dose: 4 unit Lorazepam (Ativan Inj*) 1 mg IV Q8H [facility]; Taper Stop: 12/19/18 19:44 Last Admin: 12/17/18 07:36 Dose: 1 mg Lorazepam (Ativan Inj*) 0 - 6 mg IV PUSH .PER [facility] PROTOCOL [facility]; Protocol Last Admin: 12/17/18 05:23 Dose: 2 mg Miscellaneous (Ativan Pyxis Sharma) 1 ea N/A .PYXIS SHARMA PRN PRN Reason: PER PROTOCOL Morphine Sulfate (Morphine 4 Mg/Ml Vial (1 Ml)) 4 mg IV Q4H PRN PRN Reason: PAIN Last Admin: 12/17/18 08:18 Dose: 4 mg Pancrelipase (Zenpep Delayed Cap*) 10,000 units PO AC AYD Pantoprazole Sodium (Protonix Tab*) 40 mg PO DAILY [facility] Tamsulosin HCl (Flomax Cap*) 0.4 mg PO DAILY [facility] Thiamine HCl (Vitamin B-1 Tab*) 100 mg PO DAILY [facility] Vital Signs - 8 hr 12/17/18 12/17/18 12/17/18 01:15 01:30 01:45 Temperature Pulse Rate 89 93 94 Respiratory 10 14 11 Rate Blood Pressure (mmHg) O2 Sat by Pulse 99 98 95 Oximetry 12/17/18 12/17/18 12/17/18 02:00 02:10 02:15 Temperature Pulse Rate 99 99 Respiratory 15 17 13 Rate Blood Pressure 171/150 (mmHg) O2 Sat by Pulse 98 97 Oximetry 12/17/18 12/17/18 12/17/18 02:22 02:30 02:45 Temperature Pulse Rate 102 106 105 Respiratory 17 17 13 Rate Blood Pressure 106/79 (mmHg) O2 Sat by Pulse 97 95 95 Oximetry 12/17/18 12/17/18 12/17/18 03:00 03:01 03:15 Temperature Pulse Rate 101 101 Respiratory 19 17 23 Rate Blood Pressure 132/76 (mmHg) O2 Sat by Pulse 95 95 Oximetry 12/17/18 12/17/18 12/17/18 03:30 03:31 03:45 Temperature Pulse Rate 108 105 Respiratory 16 15 16 Rate Blood Pressure (mmHg) O2 Sat by Pulse 96 96 Oximetry 12/17/18 12/17/18 12/17/18 04:00 04:15 04:23 Temperature 98.8 F Pulse Rate 107 108 Respiratory 26 25 16 Rate Blood Pressure 130/83 (mmHg) O2 Sat by Pulse 94 92 Oximetry 12/17/18 12/17/18 12/17/18 04:30 04:45 05:00 Temperature Pulse Rate 99 95 111 Respiratory 16 18 16 Rate Blood Pressure (mmHg) O2 Sat by Pulse 96 96 96 Oximetry 12/17/18 12/17/18 12/17/18 05:06 05:15 05:23 Temperature Pulse Rate 99 100 Respiratory 16 19 13 Rate Blood Pressure 147/83 (mmHg) O2 Sat by Pulse 96 97 Oximetry 12/17/18 12/17/18 12/17/18 05:30 05:45 06:00 Temperature Pulse Rate 101 100 111 Respiratory 13 14 19 Rate Blood Pressure 135/86 (mmHg) O2 Sat by Pulse 99 96 97 Oximetry 12/17/18 12/17/18 12/17/18 06:15 06:30 06:45 Temperature Pulse Rate 96 93 91 Respiratory 20 13 21 Rate Blood Pressure (mmHg) O2 Sat by Pulse 97 96 95 Oximetry 12/17/18 12/17/18 12/17/18 07:00 07:01 07:11 Temperature 98.3 F Pulse Rate 96 91 Respiratory 12 17 Rate Blood Pressure 135/89 (mmHg) O2 Sat by Pulse 94 96 Oximetry 12/17/18 12/17/18 12/17/18 07:15 07:30 07:36 Temperature Pulse Rate 90 92 Respiratory 13 20 12 Rate Blood Pressure (mmHg) O2 Sat by Pulse 99 95 Oximetry 12/17/18 12/17/18 12/17/18 07:45 08:00 08:11 Temperature Pulse Rate 90 87 86 Respiratory 17 20 17 Rate Blood Pressure 139/84 (mmHg) O2 Sat by Pulse 95 97 98 Oximetry 12/17/18 12/17/18 08:15 08:18 Temperature Pulse Rate 85 Respiratory 16 18 Rate Blood Pressure (mmHg) O2 Sat by Pulse 98 Oximetry Oxygen Devices in Use Now: None Appearance: Elderly gentleman lying in bed in NAD. Eyes: No Scleral Icterus Ears/Nose/Mouth/Throat: Mucous Membranes Moist Neck: Trachea Midline Respiratory: Symmetrical Chest Expansion and Respiratory Effort, Clear to Auscultation Cardiovascular: RRR - Normal S1 and S2 Abdominal: - - Soft, diffuse tenderness, NG, NR, BS+ Extremities: No Edema Neurological: Alert and Oriented x 3, NL Muscle Strength and Tone, - - Mild UE tremors Result Diagrams: 12/16/18 19:39 12/17/18 05:19 Assess/Plan/Problems-Billing Assessment: Mr Frost is a 63yo M with PMH of CAD, HTN, GERD, chronic pancreatitis, AWILDA, chronic back pain, BPH, type 2 DM, who presented to ED with uncontrolled DM; found to be in DKA. - Patient Problems (1) Diabetes Comment: - Hb A1c 17 on his prior admission. - DKA quickly resolved with insulin drip - resume Lantus and Lispro SS. - Will need his prescriptions filled prior to discharge and close outpatient follow up. (2) Alcohol intoxication with blood level over 0.3 Comment: - Patient denies drinking alcohol, but alcohol level was 333 in the ED. - Mild tremors on PE. - Continue WAM protocol. - SW consult. (3) Pancytopenia Comment: - Resolved. - F/u with Dr Ray as outpatient. - Continue vitamin B12. (4) Chronic back pain Comment: - Seen by Dr Acevedo on his prior admission - recommended Fentanyl patch, but was unable to fill prescription up. (5) GERD (gastroesophageal reflux disease) Comment: - Continue to Pantoprazole. (6) Lactic acid acidosis Comment: - No clear signs of infection seen. As per H&P "He has presented with same syndrome in past, due to combination of DKA and alcohol intake." - Trending down. (7) DVT prophylaxis Comment: - Lovenox. (8) Full code status Status and Disposition: Inpatient. Transfer to medical floor.
[2018-12-17] MEDS: Pantoprazole TAB * 40 MG TAB PO SCH (09:14)
[2018-12-17] MEDS: Thiamine TAB* 100 MG TAB PO SCH (09:14)
[2018-12-17] MEDS: Tamsulosin CAP* 0.4 MG PO SCH (09:14)
[2018-12-17] MEDS: Folic Acid TAB* 1 MG PO SCH (09:14)
[2018-12-17] MEDS: Cyanocobalamin TAB* 500 MCG PO SCH (09:14)
[2018-12-17] MEDS: fentaNYL PATCH 50 MCG/HR TRANSDERM SCH (09:17)
[2018-12-17] MEDS: fentaNYL Patch Check Q Shift 1 NOTE FOLLOW UP SCH ×3 (10:00→22:18)
[2018-12-17] MEDS: Pancrelipase CAP* 5,000 UNITS CAP PO SCH ×2 (12:53→16:31)
--- NOTE | 2018-12-17 17:20 | PN ---
Hospitalist Progress Note Date of Service: 12/17/18 HOSPITALIST ADDENDUM Called by RN because patient is c/o CP after eating a large meal (equivalent to 3 portions). CP likely GI in nature, but has CAD risk factors. Check EKG and serial troponin. Maalox plus for symptomatic relief.
[2018-12-17] MEDS: Enoxaparin(*) 40 MG/0.4 ML SYR SUBCUT SCH (22:20)
[2018-12-18] MEDS: NS 0.9% 1000 ML** 1,000 ML IV SCH (00:24)
[2018-12-18] MEDS: Morphine 4 MG/ML VIAL (1 ml) 4 MG/ML VIAL IV PRN ×5 (03:20→23:26)
[2018-12-18] MEDS: Al Hydrox/Mg Hydrox/Simet LIQ* 30 ML UDC PO PRN ×2 (03:24→20:17)
[2018-12-18] MEDS: LORazepam INJ* 2 MG/ML 1 ML VIAL IV SCH ×2 (03:55→15:37)
[2018-12-18] MEDS: fentaNYL Patch Check Q Shift 1 NOTE FOLLOW UP SCH ×2 (06:24→19:50)
[2018-12-18 07:13] LABS: Anion Gap 6 mmol/L (2-11); BUN/Creatinine Ratio 7.9 (8-20); Blood Urea Nitrogen 6 mg/dL (6-24); CO2 Carbon Dioxide 24 mmol/L (22-32); Calcium 7.5 mg/dL (8.6-10.3); Chloride 110 mmol/L (101-111); EGFR African American 125.8 (>60); EGFR Non-African American 103.9 (>60); Glucose 194 mg/dL (70-100); Potassium 3.6 mmol/L (3.5-5.0); Sodium 140 mmol/L (135-145)
[2018-12-18 07:41] LABS: ABS Neutrophils 0.9 10^3/ul (1.5-7.7); Hematocrit 29 % (42-52); Hemoglobin 9.5 g/dL (14.0-18.0); Mean Corpuscular HGB Conc 32 g/dL (31-36); Mean Corpuscular Hemoglobin 24 pg (27-31); Mean Corpuscular Volume 75 fL (80-94); Mean Platelet Volume 8.1 fL (7.4-10.4); Platelet Count 50 10^3/uL (150-450); Red Cell Distribution Width 22 % (10.5-15); White Blood Count 1.7 10^3/uL (3.5-10.8)
[2018-12-18] MEDS ORDERED: Cyanocobalamin INJ * 1,000 MCG/ML VIAL 1 ML VIAL IM ONE (08:27)
[2018-12-18 08:42] LABS: ABS Lymphocytes 0.6 10^3/ul (1.0-4.8); ABS Monocytes 0.1 10^3/ul (0-0.8); Eosinophil % 2.8 %; Lymphocyte % 37.5 %
[2018-12-18] MEDS ORDERED: NS 0.9% IVPB ONE (09:00)
[2018-12-18] MEDS ORDERED: FERUMOXYTOL IVPB ONE (09:00)
[2018-12-18] MEDS: Insulin GLARGINE(*) 1 UNITS UNIT SUBCUT SCH (09:32)
[2018-12-18] MEDS: Insulin LISPRO* 1 UNITS UNIT SUBCUT SCH ×4 (09:33→22:58)
[2018-12-18] MEDS: Folic Acid TAB* 1 MG PO SCH (09:34)
[2018-12-18] MEDS: Cyanocobalamin TAB* 500 MCG PO SCH (09:34)
[2018-12-18] MEDS: Pancrelipase CAP* 5,000 UNITS CAP PO SCH ×4 (09:34→18:06)
[2018-12-18] MEDS: Thiamine TAB* 100 MG TAB PO SCH (09:34)
[2018-12-18] MEDS: Tamsulosin CAP* 0.4 MG PO SCH (09:34)
[2018-12-18] MEDS: Pantoprazole TAB * 40 MG TAB PO SCH (09:34)
--- NOTE | 2018-12-18 09:43 | PN ---
Subjective Date of Service: 12/18/18 Interval History: HOSPITALIST PROGRESS NOTE Patient seen and examined at bedside. Care reviewed and d/w Brenda Valverde RN. He offers no new complaints today. Abdominal pain is unchanged. Denies N/V, tolerating diet. Family History: Unchanged from Admission Social History: Unchanged from Admission Past Medical History: Unchanged from Admission Objective Active Medications: Acetaminophen (Tylenol Tab*) 650 mg PO Q4H PRN PRN Reason: PAIN Last Admin: 12/17/18 03:29 Dose: 650 mg Al Hydrox/Mg Hydrox/Simethicone (Maalox Plus*) 30 ml PO Q4H PRN PRN Reason: INDIGESTION Last Admin: 12/18/18 03:24 Dose: 30 ml Cyanocobalamin (Vitamin B12 Tab*) 1,000 mcg PO DAILY [facility] Last Admin: 12/18/18 09:34 Dose: 1,000 mcg Dextrose (D50w Syringe 50 Ml*) 12.5 gm IV PUSH .FOR FS < 60 - SS PRN PRN Reason: FS < 60 Docusate Sodium (Colace Cap*) 100 mg PO BID PRN PRN Reason: CONSTIPATION Enoxaparin Sodium (Lovenox(*)) 40 mg SUBCUT Q24H [facility] Last Admin: 12/17/18 22:20 Dose: 40 mg Fentanyl (Duragesic Patch 50 Mcg/Hr*) 50 mcg TRANSDERM Q72H [facility] Last Admin: 12/17/18 09:17 Dose: 50 mcg Folic Acid (Folvite Tab*) 1 mg PO DAILY [facility] Last Admin: 12/18/18 09:34 Dose: 1 mg Insulin Glargine (Lantus(*)) 45 units SUBCUT Q24H [facility] Last Admin: 12/18/18 09:32 Dose: 45 units Insulin Human Lispro (Humalog*) 0 units SUBCUT ACHS [facility]; Protocol Last Admin: 12/18/18 09:33 Dose: 2 unit Lorazepam (Ativan Inj*) 1 mg IV Q12H [facility]; Taper Stop: 12/19/18 19:44 Last Admin: 12/18/18 03:55 Dose: 1 mg Lorazepam (Ativan Inj*) 0 - 6 mg IV PUSH .PER [facility] PROTOCOL [facility]; Protocol Last Admin: 12/17/18 09:31 Dose: 2 mg Miscellaneous (Ativan Pyxis Sharma) 1 ea N/A .PYXIS SHARMA PRN PRN Reason: PER PROTOCOL Morphine Sulfate (Morphine 4 Mg/Ml Vial (1 Ml)) 4 mg IV Q4H PRN PRN Reason: PAIN Last Admin: 12/18/18 03:20 Dose: 4 mg Pancrelipase (Zenpep Delayed Cap*) 10,000 units PO AC [facility] Last Admin: 12/18/18 09:34 Dose: 10,000 units Pantoprazole Sodium (Protonix Tab*) 40 mg PO DAILY [facility] Last Admin: 12/18/18 09:34 Dose: 40 mg Pharmacy Profile Note (Fentanyl Patch Check Q Shift) 1 note FOLLOW UP 0700, 1900 [facility] Last Admin: 12/18/18 06:24 Dose: 1 note Tamsulosin HCl (Flomax Cap*) 0.4 mg PO DAILY [facility] Last Admin: 12/18/18 09:34 Dose: 0.4 mg Thiamine HCl (Vitamin B-1 Tab*) 100 mg PO DAILY [facility] Last Admin: 12/18/18 09:34 Dose: 100 mg Vital Signs - 8 hr 12/18/18 12/18/18 12/18/18 02:55 03:20 03:55 Temperature 98.6 F Pulse Rate 89 Respiratory 20 20 17 Rate Blood Pressure 168/95 (mmHg) O2 Sat by Pulse 100 Oximetry 12/18/18 12/18/18 12/18/18 04:20 05:00 05:08 Temperature 97.7 F Pulse Rate 81 Respiratory 18 18 20 Rate Blood Pressure 158/95 (mmHg) O2 Sat by Pulse 98 Oximetry 12/18/18 06:49 Temperature 98 F Pulse Rate 96 Respiratory 20 Rate Blood Pressure 154/94 (mmHg) O2 Sat by Pulse 99 Oximetry Oxygen Devices in Use Now: None Appearance: Elderly gentleman sitting up in bed in NAD. Eyes: No Scleral Icterus Ears/Nose/Mouth/Throat: Mucous Membranes Moist Neck: Trachea Midline Respiratory: Symmetrical Chest Expansion and Respiratory Effort, Clear to Auscultation Cardiovascular: RRR - Normal S1 and S2 Neurological: Alert and Oriented x 3, NL Muscle Strength and Tone Result Diagrams: 12/18/18 06:38 12/18/18 06:38 Assess/Plan/Problems-Billing Assessment: Mr Frost is a 63yo M with PMH of CAD, HTN, GERD, chronic pancreatitis, AWILDA, chronic back pain, BPH, type 2 DM, who presented to ED with uncontrolled DM; found to be in DKA. - Patient Problems (1) Diabetes Comment: - Hb A1c 17 on his prior admission. - DKA quickly resolved with insulin drip - resume Lantus and Lispro SS. - Will need his prescriptions filled prior to discharge and close outpatient follow up. (2) Alcohol intoxication with blood level over 0.3 Comment: - Patient denies drinking alcohol, but alcohol level was 333 in the ED. - Has not scored on WAM - will d/c it. (3) Pancytopenia Comment: - Worse again today. - D/w Hematology (Dr Copeland) - will replete iron and B12 (parenteral). - Dr Copeland will consult. (4) Chronic back pain Comment: - Seen by Dr Acevedo on his prior admission - recommended Fentanyl patch, but was unable to fill prescription up. - Continue Fentanyl patch. (5) GERD (gastroesophageal reflux disease) Comment: - Continue Pantoprazole. (6) Lactic acid acidosis Comment: - No clear signs of infection seen. As per H&P "He has presented with same syndrome in past, due to combination of DKA and alcohol intake." - Resolved. (7) DVT prophylaxis Comment: - Will d/c Lovenox due to thrombocytopenia. - SCDs. (8) Full code status Status and Disposition: Inpatient
[2018-12-18 17:34] LABS: Acetone Level Not Detected; Ethanol 238 mg/dL; Isopropanol Not Detected
--- NOTE | 2018-12-18 22:36 | CONS ---
MEDICAL ONCOLOGY/HEMATOLOGY CONSULTATION NOTE: DATE OF CONSULT: 12/18/18 REASON FOR CONSULT: Anemia and thrombocytopenia. HISTORY OF PRESENT ILLNESS: Blake Frost is a 63-year-old male with longstanding history of poorly controlled insulin-dependent diabetes. He was admitted to the hospital on 12/03/18 with extreme confusion and found to have diabetic ketoacidosis. He is admitted again at this time with similar symptoms. On both occasions, he became extremely confused and lethargic. He is an extremely poor historian, not remembering much of his past medical history nor who brought him to the hospital on the last 2 occasions. Even though his alcohol level was 333, he denies any use of alcohol for years. During the previous admission on 12/08/18, he was seen in consultation by my colleague, Dr. Ray, for anemia and thrombocytopenia. He has had multiple episodes of low blood counts going back for many years. His platelet counts were in the 70,000 and 90,000 range during admission in 2011. During the admission for pancreatitis in 2013, he had numbers between 47,000 and 85,000. Subsequently, he had numbers in the 60s in May 2014. On admission on 12/03/18, his platelet count was 176,000, but by 12/06/18, it was 62 and remained in the 50s and 60s throughout the remainder of that hospitalization. On admission on 12/16/18, he reportedly had a platelet count of 291,000, but 2 days later, it was similar to most of his last hospitalization at 50. For more details, please see below. In addition to the thrombocytopenia, he has had significant anemia. Again, hemoglobin levels were low in 2011 in the 11 range, in 2013 in the 10 to 11 range. On admission on , it was 12.5, but this fell to approximately 9 during the remainder of the hospitalization. Reportedly, it was 13.1 on admission this time on 12/16/18 and 9.5 today. In addition to this, he has had significant neutropenia. Total white count in the 2500 range in 2013 on occasion of 2 different admissions. On arrival on 12/03/18, it was 5100, falling to a total white count as low as 1500 on his last admission. On arrival of this admission, 6900 and then today 1700. He has been found to have during his last admission a low B12 level of 194 and associated with it, an elevated methylmalonic acid of 1.60. Iron levels of iron saturation 10% and ferritin 9.7. Given his rapid drop in platelet count during his last admission, he did have a heparin-induced thrombocytopenia lab check and PF4 was normal. Review of the blood smear during the previous admission revealed several hypersegmented neutrophils, no evidence for hemolysis. Thrombocytopenia was real and not pseudothrombocytopenia. PAST MEDICAL HISTORY: 1. Insulin-dependent diabetes mellitus. 2. Chronic pancreatitis with multiple previous admissions here. 3. Coronary artery disease status post SD and transferred to [place] in 2009. 4. Hyperlipidemia. 5. Hypertension. 6. Anxiety. 7. BPH. 8. Alcoholism. MEDICATIONS: Current medications include: 1. Morphine 4 mg q.4 hours p.r.n. 2. Ativan 1 mg q.12 hours. 3. Lispro as needed. 4. Vitamin B12 tablets 1000 mcg daily. 5. Fentanyl patch 50 mcg. 6. Folic acid 1 mg daily. 7. Pantoprazole 40 mg daily. 8. Thiamine 100 mg daily. 9. Pancrelipase 10,000 units a.c. t.i.d. 10. Insulin glargine 45 units q.24 hours. After discussion this morning, he did receive a dose of Feraheme 510 mg. It should be noted that he had received a dose of iron during his previous hospitalization with ferric sodium gluconate complex 125 mg for 2 days from to 12/11/18 and was on oral iron pills 325 mg during his previous hospitalization and during the several days he was at home. He was also asked to take B12 at home, but it is unclear as to whether this was taken or not. ALLERGIES: To ASPIRIN, ATORVASTATIN, and NAPROSYN. SOCIAL HISTORY: The patient reports living alone. He denies any alcohol use over the past year, but blood alcohol level is markedly elevated on admission. Denies other drug use and smoking. REVIEW OF SYSTEMS: Continues to feel poorly, although better on admission. Denies any fevers, sweats, chills, cough, sore throat, or other signs of infection. Still complaining of abdominal pain. He reports stools are somewhat dark from the iron. He has occasional bright red blood in the stools. Denies any back or skeletal pain. He is still complaining of abdominal pain. Review of systems is otherwise negative. PHYSICAL EXAM: Vital Signs: Blood pressure 154/94, pulse 96, afebrile. HEENT : PERRL, EOMI. No erythema or exudates. No scleral icterus. Poor dentition. Lungs: Clear. Heart: Regular rate and rhythm without murmurs, rubs, or gallops. Abdomen: Somewhat soft and with normoactive bowel sounds, but he tenses his abdomen when one tries to examine him and requests that his belly not be examined due to pain. Extremities: No edema. DIAGNOSTIC STUDIES/LAB DATA: Laboratory studies as discussed above. Imaging: CT scan on 12/02/18, no hepatosplenomegaly, no adenopathy. IMPRESSION: A 63-year-old male with anemia, thrombocytopenia, and neutropenia. He reports eating a good diet and denies drinking alcohol; however, I think a lot of this is likely nutritional. He clearly has both B12 and iron deficiency on laboratory testing. During the previous admission, he told Dr. Ray that he has had a bone marrow biopsy in [place] several months ago, but is unsure as to what hospital and reports it was "normal." However, he tells me that he has never been hospitalized in any hospital outside of [place] for the past 30 years. Given his likelihood of not staying in the hospital for a long period even if necessary medically and my concern about his following up as an outpatient, I requested that he receive IV Feraheme; even though this is a more expensive preparation; during this hospitalization in an attempt to better replete his iron stores. He continues to receive B12 on a daily basis. Hopefully, by repleting B12 and iron, his laboratory studies will improve. If not, it would be important for him to have a bone marrow aspiration and biopsy or if he truly did have a bone marrow aspiration and biopsy, it would be prudent for us to obtain the results. Given his intermittently low counts over the years, especially at times when he seems to have had increased alcohol such as these 2 admissions and with the pancreatitis, it is likely that this is nutritional and/or bone marrow suppression from alcohol. He did have 1 surprising laboratory study, that of 12/16/18, when he reportedly had totally normal cell counts. This is despite significant lower count on and subsequently on 12/18/18 with very similar values. The MCV and RDW are identical on 12/16/18 to the laboratory values before and after. I have discussed this with hematology technicians in the laboratory. They are further looking into this. They agree that it would be extremely unusual for him to have had normal counts on 12/16/18; yet, similar abnormalities on 12/11/18 and 12/18/18. I think for the moment we just need to ignore the 12/16/18 counts since they seem unlikely to be accurate. Ignoring counts from that day, all 3 of his cell lines have been stable recently, although extremely low. Hopefully , these will come up with repletion of B12 and iron. If not, as noted above, bone marrow aspiration and biopsy, either obtaining previous results or obtaining new study would be extremely important. [id number]/[facility] #: [id number] SALOME
[2018-12-19] MEDS ORDERED: Lorazepam PYXIS KEY PRN (00:30)
[2018-12-19] MEDS: LORazepam INJ* 2 MG/ML 1 ML VIAL IV PUSH SCH ×2 (04:10→16:49)
[2018-12-19] MEDS: LORazepam INJ* 2 MG/ML 1 ML VIAL IV SCH (06:34)
[2018-12-19 07:06] LABS: ABS Lymphocytes 0.6 10^3/ul (1.0-4.8); ABS Monocytes 0.1 10^3/ul (0-0.8); ABS Neutrophils 1.6 10^3/ul (1.5-7.7); Eosinophil % 1.9 %; Hematocrit 30 % (42-52); Hemoglobin 9.6 g/dL (14.0-18.0); Lymphocyte % 24.6 %; Mean Corpuscular HGB Conc 32 g/dL (31-36); Mean Corpuscular Hemoglobin 24 pg (27-31); Mean Corpuscular Volume 76 fL (80-94); Nucleated Red Blood Cells % 0.1; Platelet Count 41 10^3/uL (150-450); Red Blood Count 3.97 10^6 /uL (4.18-5.48); Red Cell Distribution Width 22 % (10.5-15); White Blood Count 2.4 10^3/uL (3.5-10.8)
[2018-12-19] MEDS: fentaNYL Patch Check Q Shift 1 NOTE FOLLOW UP SCH ×2 (07:12→19:15)
[2018-12-19 07:16] LABS: Calcium 7.9 mg/dL (8.6-10.3); Potassium 3.1 mmol/L (3.5-5.0)
[2018-12-19] MEDS: Insulin GLARGINE(*) 1 UNITS UNIT SUBCUT SCH (08:38)
[2018-12-19] MEDS: Pantoprazole TAB * 40 MG TAB PO SCH (08:38)
[2018-12-19] MEDS: Cyanocobalamin TAB* 500 MCG PO SCH (08:38)
[2018-12-19] MEDS: Folic Acid TAB* 1 MG PO SCH (08:38)
[2018-12-19] MEDS: Tamsulosin CAP* 0.4 MG PO SCH (08:38)
[2018-12-19] MEDS: Pancrelipase CAP* 5,000 UNITS CAP PO SCH ×3 (08:38→16:37)
[2018-12-19] MEDS: Insulin LISPRO* 1 UNITS UNIT SUBCUT SCH ×4 (08:39→22:56)
[2018-12-19] MEDS: Thiamine TAB* 100 MG TAB PO SCH (08:39)
[2018-12-19 08:58] LABS: BUN/Creatinine Ratio 8.2 (8-20); EGFR African American 131.7 (>60); EGFR Non-African American 108.9 (>60)
--- NOTE | 2018-12-19 11:58 | PN ---
Subjective Date of Service: 12/19/18 Interval History: HOSPITALIST PROGRESS NOTE Patient seen and examined at bedside. Care reviewed and d/w Soni Walton RN. He offers no new complaints today. Wants to go home. Family History: Unchanged from Admission Social History: Unchanged from Admission Past Medical History: Unchanged from Admission Objective Active Medications: Acetaminophen (Tylenol Tab*) 650 mg PO Q4H PRN PRN Reason: PAIN Last Admin: 12/17/18 03:29 Dose: 650 mg Al Hydrox/Mg Hydrox/Simethicone (Maalox Plus*) 30 ml PO Q4H PRN PRN Reason: INDIGESTION Last Admin: 12/18/18 20:17 Dose: 30 ml Cyanocobalamin (Vitamin B12 Tab*) 1,000 mcg PO DAILY ADY Last Admin: 12/19/18 08:38 Dose: 1,000 mcg Dextrose (D50w Syringe 50 Ml*) 12.5 gm IV PUSH .FOR FS < 60 - SS PRN PRN Reason: FS < 60 Docusate Sodium (Colace Cap*) 100 mg PO BID PRN PRN Reason: CONSTIPATION Fentanyl (Duragesic Patch 50 Mcg/Hr*) 50 mcg TRANSDERM Q72H ADY Last Admin: 12/17/18 09:17 Dose: 50 mcg Folic Acid (Folvite Tab*) 1 mg PO DAILY [facility] Last Admin: 12/19/18 08:38 Dose: 1 mg Insulin Glargine (Lantus(*)) 45 units SUBCUT Q24H [facility] Last Admin: 12/19/18 08:38 Dose: 45 units Insulin Human Lispro (Humalog*) 0 units SUBCUT [facility]; Protocol Last Admin: 12/19/18 08:39 Dose: Not Given Lorazepam (Ativan Inj*) 0.5 mg IV PUSH Q12H [facility] Stop: 12/19/18 16:01 Last Admin: 12/19/18 04:10 Dose: 0.25 mg Miscellaneous (Ativan Pyxis Sharma) 1 ea N/A .PYXIS SHARMA PRN PRN Reason: PER PROTOCOL Morphine Sulfate (Morphine 4 Mg/Ml Vial (1 Ml)) 4 mg IV Q4H PRN PRN Reason: PAIN Last Admin: 12/18/18 23:26 Dose: 4 mg Pancrelipase (Zenpep Delayed Cap*) 10,000 units PO AC ADY Last Admin: 12/19/18 08:38 Dose: 10,000 units Pantoprazole Sodium (Protonix Tab*) 40 mg PO DAILY [facility] Last Admin: 12/19/18 08:38 Dose: 40 mg Pharmacy Profile Note (Fentanyl Patch Check Q Shift) 1 note FOLLOW UP 0700, 1900 [facility] Last Admin: 12/19/18 07:12 Dose: 1 note Potassium Chloride (Klor Con Er Tab*) 40 meq PO Q4H [facility] Stop: 12/19/18 14:01 Tamsulosin HCl (Flomax Cap*) 0.4 mg PO DAILY [facility] Last Admin: 12/19/18 08:38 Dose: 0.4 mg Thiamine HCl (Vitamin B-1 Tab*) 100 mg PO DAILY [facility] Last Admin: 12/19/18 08:39 Dose: 100 mg Vital Signs - 8 hr 12/19/18 12/19/18 12/19/18 04:10 04:45 05:53 Temperature 97.4 F Pulse Rate 97 Respiratory 18 19 18 Rate Blood Pressure 146/100 (mmHg) O2 Sat by Pulse 97 Oximetry Oxygen Devices in Use Now: None Appearance: Pleasant gentleman lying in bed in NAD. Eyes: No Scleral Icterus Ears/Nose/Mouth/Throat: Mucous Membranes Moist Neck: Trachea Midline Respiratory: Symmetrical Chest Expansion and Respiratory Effort, Clear to Auscultation Cardiovascular: RRR - Normal S1 and S2 Abdominal: - - Soft, mild diffuse tenderness, NG, NR, BS+ Neurological: Alert and Oriented x 3, NL Muscle Strength and Tone Result Diagrams: 12/19/18 06:28 12/19/18 06:28 Assess/Plan/Problems-Billing Assessment: Mr Frost is a 63yo M with PMH of CAD, HTN, GERD, chronic pancreatitis, AWILDA, chronic back pain, BPH, type 2 DM, who presented to ED with uncontrolled DM; found to be in DKA. - Patient Problems (1) Diabetes Comment: - Hb A1c 17 on his prior admission. - DKA quickly resolved with insulin drip - resume Lantus and Lispro SS. - Will need his prescriptions filled prior to discharge and close outpatient follow up. I contacted his brother who will chart picker all his prescriptions at [facility] prior to discharge. (2) Alcohol intoxication with blood level over 0.3 Comment: - Patient denies drinking alcohol, but alcohol level was 333 in the ED. - Has not scored on WAM - will d/c it. (3) Pancytopenia Comment: - Worse again today. - D/w Hematology (Dr Copeland) - will replete iron and B12 (parenteral). - Hematology consult appreciated. (4) Chronic back pain Comment: - Seen by Dr Acevedo on his prior admission - recommended Fentanyl patch, but was unable to fill prescription up. - Continue Fentanyl patch. (5) GERD (gastroesophageal reflux disease) Comment: - Continue Pantoprazole. (6) Lactic acid acidosis Comment: - No clear signs of infection seen. As per H&P "He has presented with same syndrome in past, due to combination of DKA and alcohol intake." - Resolved. (7) DVT prophylaxis Comment: - Will d/c Lovenox due to thrombocytopenia. - SCDs. (8) Full code status Status and Disposition: Inpatient
[2018-12-19] MEDS: Potassium Chlor TAB* 20 MEQ TAB.ER PO SCH ×2 (12:30→14:43)
[2018-12-19] MEDS: Morphine 4 MG/ML VIAL (1 ml) 4 MG/ML VIAL IV PRN ×2 (16:43→20:59)
[2018-12-20] MEDS: Morphine 4 MG/ML VIAL (1 ml) 4 MG/ML VIAL IV PRN ×3 (01:55→11:12)
[2018-12-20] MEDS: fentaNYL Patch Check Q Shift 1 NOTE FOLLOW UP SCH (06:30)
[2018-12-20] MEDS: Insulin LISPRO* 1 UNITS UNIT SUBCUT SCH ×2 (08:33→13:37)
[2018-12-20] MEDS: Insulin GLARGINE(*) 1 UNITS UNIT SUBCUT SCH (08:50)
[2018-12-20] MEDS: Thiamine TAB* 100 MG TAB PO SCH (08:50)
[2018-12-20] MEDS: Tamsulosin CAP* 0.4 MG PO SCH (08:50)
[2018-12-20] MEDS: Pancrelipase CAP* 5,000 UNITS CAP PO SCH ×2 (08:50→11:12)
[2018-12-20] MEDS: Pantoprazole TAB * 40 MG TAB PO SCH (08:50)
[2018-12-20] MEDS: Cyanocobalamin TAB* 500 MCG PO SCH (08:50)
[2018-12-20] MEDS: Folic Acid TAB* 1 MG PO SCH (08:50)
[2018-12-20] MEDS: fentaNYL PATCH 50 MCG/HR TRANSDERM SCH (08:51)
[2018-12-20 12:50] LABS: Calcium 7.5 mg/dL (8.6-10.3); EGFR African American 123.9 (>60); EGFR Non-African American 102.4 (>60); Magnesium 1.9 mg/dL (1.9-2.7); Potassium 3.7 mmol/L (3.5-5.0)
[2018-12-20 16:37] VITALS: BP 148/99
--- NOTE | 2018-12-20 21:53 | DS ---
CC: Dr. Copeland * DISCHARGE SUMMARY: DATE OF ADMISSION: 12/16/18 DATE OF DISCHARGE: 12/20/18 PRIMARY DIAGNOSES: 1. Uncontrolled diabetes, complicated by diabetic ketoacidosis. 2. Chronic back pain. 3. Alcohol abuse. SECONDARY DIAGNOSES: 1. Coronary artery disease. 2. Hypertension. 3. Gastroesophageal reflux disease. 4. Chronic pancreatitis. 5. Iron deficiency anemia. 6. Benign prostatic hypertrophy. CONSULTS: Hematology. DISCHARGE MEDICATIONS: 1. Insulin glargine 45 units nightly. 2. Insulin lispro 10 units with meals. 3. Pancrelipase 12,000 units 3 times a day. 4. Pantoprazole 40 mg daily. 5. Fentanyl 50 mcg patch q.72 hours. 6. Tamsulosin 0.4 mg daily. 7. Pregabalin 50 mg 3 times a day. 8. Hydrochlorothiazide 25 mg daily. 9. Folic acid 1 mg daily. 10. Vitamin B12 1000 mcg daily. 11. Thiamine 100 mg daily. HISTORY OF PRESENT ILLNESS: A 63-year-old man with type 2 diabetes, ketosis prone; chronic pain; coronary artery disease; who was recently discharged from the hospital 4 days prior to this presentation for hospitalization for DKA. During the hospital stay, he was seen by Dr. Acevedo for his chronic pain and Dr. Ray for his pancytopenia. He had an iron deficiency, was discharged with fentanyl patches, Lantus, pancreatic enzymes and several other medications. The patient states that his insurance would not cover his medications but was unclear on what exactly was not covered or what ones he was still taking. Of note, the patient also had an elevated alcohol level in his blood but denied alcohol use for years. He also states that he was without insulin for the last year and has been able to modulate his diabetes strictly with diet. Since discharge, the patient has been progressively more confused. His brother found him with altered mental status as they live close by and brought him to the emergency room for further evaluation. HOSPITAL COURSE: The patient was admitted to the ICU for insulin drip and IV fluids. There was low suspicion for infection as cause of his DKA. He was quickly able to switch to subq insulin and had return of his baseline mental status. The patient adamantly denied history of alcohol use throughout admission and reported that he just wanted to go back home. He continued to complain of his chronic abdominal pain from pancreatitis as well as neuropathic pain from diabetes and chronic back pain from degenerative disk disease and states that nothing that we had been doing here has helped him, so he does not understand why he is to stay in the hospital. He continued to receive opioids for pain control as well as insulin for glucose control. He was also given lorazepam over the course of 3 days per alcohol withdrawal protocol. He was seen and evaluated by Dr. Copeland from Hematology for history of pancytopenia and missing followup appointments that were scheduled after prior hospitalization. It was thought that his pancytopenia was from a combination of alcohol use and B12 and iron deficiencies. On day of discharge, the patient was very eager to return home as he felt very restricted in the hospital setting. He states that he will take a cab to the pharmacy to picking crew supervisor his medications which were confirmed received and filled and ready for him to obtain. The patient was counseled extensively on alcohol cessation and denies recent use and states he has not been self medicating because he would need "a lot of alcohol" to medicate for pain. He did not want to stay to wait for Pain Management consult in the hospital. He states that he lives near his brother, who had previously been involved with his care and that he will attend his follow up appointments that have been scheduled for him and are still pending from last hospitalization. A 10-point review of systems was performed and significant for chronic epigastric pain, lower back pain, and neuropathic pain in his feet, unchanged from before. He denies new pain, lethargy, fatigue, fevers, chills, or any other focal signs of infection. PHYSICAL EXAM: Afebrile. Heart rate 92, blood pressure 140/99, oxygen saturation 99% on room air, respiratory rate 20. In general, he is a well- appearing man, in no acute distress, alert and interactive, responds appropriately to all questions. HEENT: Moist mucous membranes. CN II through XII intact. Neck: No JVD. Lungs: Clear to auscultation bilaterally. Heart: Regular rate and rhythm. No murmurs, gallops, or rubs. Abdomen: Soft, nontender, nondistended. Neuro: A and O x3. Strength 5/5 in all 4 extremities. Extremities: Warm, well perfused, no edema. PERTINENT STUDIES AND LABS: WBC 2.4, hemoglobin 9.6 with MCV 76, platelets 41. TSH 0.67. Brain CT without acute intracranial abnormality with age-related atrophy and mild chronic small vessel ischemic disease and chronic paranasal sinusitis. DISCHARGE PLAN: The patient is to obtain care at the [facility] and follow up in Hematology Clinic with Dr. Ray and Pain Management with Dr. Acevedo. He was educated extensively on importance of medication adherence, lack of which could be an imminent threat to his life. His medications are listed above. He was educated extensively on return precautions which include but are not limited to tachypnea, abdominal pain, nausea, vomiting, fevers or chills. He is to resume healthy diet low in processed foods and carbohydrates with activity as tolerated. DISPOSITION: Home. CONDITION: Improved. TIME SPENT: Approximately 60 minutes was spent on discharge of this patient, more than half of which was spent on care and coordination at bedside for interview and exam. [id number]/[facility] #: [id number] MTDD
--- NOTE | 2018-12-22 12:04 | DCNOTE ---
Subjective Date of Service: 12/22/18 Interval History: Contacted by care transition pharmacist There have been numerous problems with filling pt's meds. He just received PA for fentanyl patch which he will run out of today. His care transition's appointment is in 3 days otherwise he has no PCP Request to send 1 patch to the [facility] pharmacy for patient Patient records reviewed. Fentanyl patch recommended by pain consult and agreed upon by discharging physician. 1 50mcg patch sent to [facility] pharmacy and relayed information to care transition pharmacist. Family History: Unchanged from Admission Social History: Unchanged from Admission Past Medical History: Unchanged from Admission Objective Oxygen Devices in Use Now: None Result Diagrams: 12/19/18 06:28 12/20/18 12:19 Additional Lab and Data: Laboratory Tests 12/16/18 12/16/18 12/16/18 19:39 19:39 19:39 INR (Anticoag Therapy) 1.11 H APTT 32.1 VBG pH VBG pCO2 VBG pO2 VBG HCO3 Anion Gap 25 H Glucose 556 H* Lactic Acid 13.7 H* Calcium 8.2 L Magnesium 1.9 Troponin I 0.01 C-Reactive Protein < 1.00 Serum Alcohol 333 H 12/16/18 12/16/18 19:39 22:00 INR (Anticoag Therapy) APTT VBG pH 7.21 L VBG pCO2 20 L VBG pO2 87.0 H VBG HCO3 11.0 L Anion Gap 18 H Glucose 404 H Lactic Acid Calcium Magnesium Troponin I C-Reactive Protein Serum Alcohol Assess/Plan/Problems-Billing Assessment: Mr Frost is a 63yo M with PMH of CAD, HTN, GERD, chronic pancreatitis, AWILDA, chronic back pain, BPH, type 2 DM, who presented to ED with uncontrolled DM; found to be in DKA. Status and Disposition: Inpatient
== END 2018-12-20 16:25 | disposition home or self-care (01) | DRG 420 ==
LOC: ED 19:04 → ICU 21:12 → MED 12-17 09:01
PROVIDERS: ADMIT Internal Medicine; ATTEND Internal Medicine
DX: E11.10 Type 2 diabetes mellitus with ketoacidosis without coma (principal); F10.121 Alcohol abuse with intoxication delirium; D61.818 Other pancytopenia; E87.2 Acidosis; K86.1 Other chronic pancreatitis; M54.9 Dorsalgia, unspecified; I25.10 Atherosclerotic heart disease of native coronary artery without angina pectoris; I10 Essential (primary) hypertension; K21.9 Gastro-esophageal reflux disease without esophagitis; D50.9 Iron deficiency anemia, unspecified; E78.5 Hyperlipidemia, unspecified; N40.0 Benign prostatic hyperplasia without lower urinary tract symptoms; F41.9 Anxiety disorder, unspecified; E11.42 Type 2 diabetes mellitus with diabetic polyneuropathy; M51.36 Other intervertebral disc degeneration, lumbar region; L21.9 Seborrheic dermatitis, unspecified; E53.8 Deficiency of other specified B group vitamins; Y90.8 Blood alcohol level of 240 mg/100 ml or more; Z79.4 Long term (current) use of insulin; Z79.899 Other long term (current) drug therapy; I25.2 Old myocardial infarction; Z88.6 Allergy status to analgesic agent; Z88.8 Allergy status to other drugs, medicaments and biological substances
CPT/HCPCS: 36415; 70450; 71045; 80048; 80053; 80320; 82803; 82947; 83605; 83690; 83735; 84484; 85025; 85060; 85610; 85730; 86140; 93005; 99285; A9270-GY; G0480; J1650; J1815; J2060; J2270; J3420; Q0138